=== PATIENT | female | born 1945 | race Caucasian/White ===

== ENCOUNTER 2020-08-25 08:49 | Observation (INO) | payer MEDICARE, SELFPAY ==
[2020-08-25] VITALS (14 sets, daily range): BP systolic 133–172; BP diastolic 66–99; PULSE 64–104; RESP 15–18; TEMP 36.5–36.9; O2SAT 94–98; BMI 25.7; BMI 23.5
--- NOTE | 2020-08-25 08:53 | HMH.EDGENADL ---
ED Disposition Clinical Impression: Syncope and collapse UTI (urinary tract infection) Qualifiers: Urinary tract infection type: acute cystitis Hematuria presence: without hematuria Qualified Code(s): N30.00 - Acute cystitis without hematuria Disposition: Admitted as Observation Condition on Discharge: Good Referrals: Court Taylor [Primary Care Provider] - - Critical Care Critical Care Time: No Attestation: On , the high probability of a clinically significant, sudden or life threatening deterioration of the following system(s) required my full and direct attention, intervention and personal management. The time I documented below is in addition to time spent performing reported procedures but includes the following listed in this critical care notation. Medical Decision Making - Timothy Inquiry Pt receiving controlled substance: No Vital Signs: 08/25/20 08:52 08/25/20 09:06 08/25/20 09:43 Temperature 98 F Temperature Source Oral Pulse Rate [Orthostatic Lying Right Brachial] 91 H Pulse Rate [Orthostatic Sitting Right Brachial] 99 H Pulse Rate [Orthostatic Standing Right Brachial] 104 H Pulse Rate [Right] 97 H 98 H 92 H Respiratory Rate 16 Blood Pressure [Orthostatic Lying Right Arm] 160/92 H Blood Pressure [Orthostatic Sitting Right Arm] 147/95 H Blood Pressure [Orthostatic Standing Right Arm] 146/87 H Blood Pressure [Right Arm] 164/94 H 153/87 H 157/87 H Blood Pressure Mean [Right Arm] 117 109 110 Blood Pressure Source [Right Arm] Automatic Cuff Automatic Cuff Automatic Cuff Blood Pressure Position [Right Arm] Sitting Sitting Sitting 02 Sat by Pulse Oximetry 98 95 95 Oxygen Delivery Method Room Air Room Air Room Air 08/25/20 10:00 08/25/20 10:10 08/25/20 10:30 Temperature Temperature Source Pulse Rate [Orthostatic Lying Right Brachial] 91 H Pulse Rate [Orthostatic Sitting Right Brachial] 90 Pulse Rate [Orthostatic Standing Right Brachial] 100 H Pulse Rate [Right] 90 90 Respiratory Rate 15 Blood Pressure [Orthostatic Lying Right Arm] 160/92 H Blood Pressure [Orthostatic Sitting Right Arm] 147/95 H Blood Pressure [Orthostatic Standing Right Arm] 146/87 H Blood Pressure [Right Arm] 172/87 H 162/99 H Blood Pressure Mean [Right Arm] 115 120 Blood Pressure Source [Right Arm] Automatic Cuff Automatic Cuff Blood Pressure Position [Right Arm] Sitting Sitting 02 Sat by Pulse Oximetry 96 95 Oxygen Delivery Method Room Air Room Air 08/25/20 11:03 08/25/20 11:32 Temperature Temperature Source Pulse Rate [Orthostatic Lying Right Brachial] Pulse Rate [Orthostatic Sitting Right Brachial] Pulse Rate [Orthostatic Standing Right Brachial] Pulse Rate [Right] 87 64 Respiratory Rate Blood Pressure [Orthostatic Lying Right Arm] Blood Pressure [Orthostatic Sitting Right Arm] Blood Pressure [Orthostatic Standing Right Arm] Blood Pressure [Right Arm] 142/76 H 146/83 H Blood Pressure Mean [Right Arm] 98 104 Blood Pressure Source [Right Arm] Automatic Cuff Automatic Cuff Blood Pressure Position [Right Arm] Sitting Sitting 02 Sat by Pulse Oximetry 94 L 94 L Oxygen Delivery Method Room Air Room Air - Lab Data Lab results reviewed: Yes: I reviewed the patient's lab results. Lab Results 08/25/20 08:55: WBC 6.9, RBC 5.41 H, Hgb 14.7, Hct 51.4 H, MCV 94.9, MCH 27.1, MCHC 28.5 L, RDW 16.2, Plt Count 361, MPV 12.8 H, Neut % (Auto) 66.4, Lymph % (Auto) 18.2, [place] % (Auto) 5.7, Eos % (Auto) 9.7, Baso % (Auto) 2.8 H, Neut # (Auto) 4.6, Lymph # (Auto) 1.3, [place] # (Auto) 0.4, Eos # (Auto) 0.7 H, Baso # (Auto) 0.2 08/25/20 08:55: Sodium 140, Potassium 3.8, Chloride 104, Carbon Dioxide 31 H, Anion Gap 8.8, BUN 16, Creatinine 1.00, Estimated Creat Clear 51, Estimated GFR 54 L, Est GFR ( Amer) 65, Glucose 117 H, Calcium 9.5, Total Bilirubin 0.5, AST 20, ALT 18, Alkaline Phosphatase 99, Troponin I 0.02, Total Protein 7.2, Albumin 3.9, Globulin 3.3 H, Albumin/Globulin R
--- NOTE | 2020-08-25 08:55 | PC.NURSE ---
Fsbs 118 upon arrival.
--- NOTE | 2020-08-25 08:57 | XR_ITS ---
PROCEDURE: XR CHEST PORTABLE CLINICAL HISTORY: possible syncopal episode COMPARISON: No exams were available for comparison FINDINGS: The cardiomediastinal silhouette and pulmonary vascularity are within normal limits. The lungs are clear without infiltrates, suspicious nodules, or pleural effusions. No acute bony abnormalities. IMPRESSION: No acute findings. Dictated by: Maurice Turner MD 08/25/2020 10:13 Maurice Turner MD in [place] 08/25/2020 10:13
--- NOTE | 2020-08-25 08:57 | CT_ITS ---
PROCEDURE: CT HEAD/BRAIN WO CON CLINICAL INDICATION: possible syncopal episode COMPARISON: No exams were available for comparison TECHNIQUE: Axial images obtained. All CT scans at the facility use one or more dose reduction, viz: automated exposure control, ma/kV adjustment per patient size (including targeted exams where dose is matched to indication, i.e. head), or iterative reconstruction technique. FINDINGS: No midline shift, mass effect, intracranial hemorrhage, hydrocephalus, or extra-axial fluid collection is evident. There is generalized atrophy with hypoattenuation of the periventricular white matter consistent with microangiopathic changes. The calvarium has an unremarkable appearance. No mastoid effusion. No sinus air-fluid level. IMPRESSION: No acute intracranial finding Dictated by: Maurice Turner MD 08/25/2020 10:11 Maurice Turner MD in [facility] 08/25/2020 10:11
--- NOTE | 2020-08-25 09:04 | ECG_ITS ---
APPROVED REPORT Exam: Resting ECG HR:95 bpm ECG Measurements Heart Rate 95 AXES TN 162 P 39 QRSd 74 QRS 6 QT 346 T -14 QTc 434 Conclusion Normal sinus rhythm Normal ECG Electronically signed by : Prabhu Riggins, 08/26/2020 08:04:33
[2020-08-25 09:06] LABS: Basophils # 0.2 K/mm3 (0-0.2); Basophils % 2.8 % (0.1-2.0); Eosinophils # 0.7 K/mm3 (0.0-0.4); Eosinophils % 9.7 % (0.1-12.0); Hematocrit 51.4 % (37.0-47.0); Hemoglobin 14.7 g/dL (12.2-16.2); Lymphocytes # 1.3 K/mm3 (0.7-4.5); Lymphocytes % 18.2 % (10-50); Mean Corpuscular HGB Conc 28.5 g/dL (31.8-35.4); Mean Corpuscular Hemoglobin 27.1 pg (27.0-31.2); Mean Corpuscular Volume 94.9 fl (81-99); Mean Platelet Volume 12.8 fl (7.4-10.4); Monocytes # 0.4 K/mm3 (0.1-1.0); Monocytes % 5.7 % (1.7-9.3); Neutrophils # 4.6 K/mm3 (1.8-7.8); Neutrophils % 66.4 % (37.0-80.0); Platelet Count 361 K/mm3 (142-424); Red Blood Count 5.41 M/mm3 (4.20-5.40); Red Cell Distribution Width 16.2 % (11.5-17.5); White Blood Count 6.9 K/mm3 (4.8-10.8)
[2020-08-25 09:12] LABS: Potassium 3.8 mmoL/L (3.5-5.1); Sodium 140 mmol/L (136-145)
[2020-08-25 09:13] LABS: Chloride 104 mmol/L (98-107)
[2020-08-25 09:15] LABS: Alanine Aminotransferase 18 U/L (12-78); Albumin Level 3.9 g/dl (3.5-5.0); Albumin/Globulin Ratio 1.2 (1.1-1.8); Alkaline Phosphatase 99 U/L (38-126); Anion Gap 8.8 mEq/L (5-15); Aspartate Amino Transferase 20 U/L (14-36); Bilirubin,Total 0.5 mg/dl (0.2-1.3); Blood Urea Nitrogen 16 mg/dl (7-17); Calcium 9.5 mg/dl (8.4-10.2); Carbon Dioxide 31 mmol/L (22.0-30.0); Creatinine Clearance Estimated 51 mL/min (50-200); Estimated Glomerular Filt Rate 54 ml/min (>60); GFR (African American) 65 ML/MIN (>60); Globulin 3.3 g/dL (1.3-3.2); Glucose 117 mg/dl (74-100); Total Protein,Serum 7.2 g/dl (6.3-8.2)
--- NOTE | 2020-08-25 09:19 | PC.NURSE ---
Patient going to radiology
--- NOTE | 2020-08-25 09:22 | INFXCTL.NOTE ---
Prior to pt going to radiology, Kayla came out and advised she saw bugs on the patient's shoes. Staff went in and found bugs on pts shoes. Collected one and sent to lab for confirmation. Pt was stripped and cleaned. Clothes placed in blue linen bag and sat outside. Notified family that was with patient that she had bedbugs on her.
[2020-08-25 09:28] LABS: Troponin I 0.02 ng/ml (0.00-0.034)
[2020-08-25 09:31] LABS: Coronavirus 19 IgG Antibody Negative (Negative); Coronavirus 19 IgM Antibody Negative (Negative)
[2020-08-25 09:37] LABS: Triiodothryronine (T3) Uptake 33 % (23.5-40.5)
[2020-08-25 09:38] LABS: Free Thyroxine Index 3.4 ug/dL (5.93-13.13); T4 (Thyroxine) 10.3 ug/dl (5.53-11.0)
--- NOTE | 2020-08-25 09:39 | PC.NURSE ---
pt returned from rad.
--- NOTE | 2020-08-25 09:45 | CA_ITS ---
APPROVED REPORT EXAM: Comprehensive 2D, Doppler, and color-flow Echocardiogram Fire Prevention Forester: Maeve Cox CRT Ht: 5 ft 4 in Wt: 150lbs BSA: 1.73 BP: 153/86 mmHg Indications: CHF,SOA,EX SMOKER,SYNCOPE ,DEMENTIA TDS-PT TENDER TO TOUCH BEST EXAM POSSIBLE 2D Dimensions LVOT 1.58 cm (M/F) 1.5-2.5 M-Mode Dimensions RVDd 2.18 cm (0.9-2.6) LA Diam 2.89 cm (1.9-4.0) LVDd 3.97 cm (3.5-5.7) Ao Diam 2.26 cm (2.0-3.7) LVDs 2.75 cm (3.5-5.7) IVSd 0.61 cm (0.6-1.1) PWd 1.04 cm (0.6-1.1) EF (Teich) 58.90% FS 30.70% EDV (Teich) 68.80 mL ESV (Teich) 28.30 mL LV Diastology E Decel Time 230.00 (160-240 msec) E/A Ratio 0.6 MED E' 4.00 (< 7 cm/sec) E'/MED E' Ratio 15.32 (>14) LAT E' 5.20 (<10 cm/sec) E/LAT E' Ratio 11.79 (>14) Mitral Valve MV E Max Srikanth. 61.00 (40-130 cm/s) MV A Velocity 103.00 (40-130 cm/s) E/A Ratio 0.59 MV Decel. Time 230.00 (160-240 ms) MV PHT 67.00 ms Pulmonary Valve PV Peak Velocity 87.00 (50-150 cm/s) Tricuspid Valve TR P. Velocity 262.00 cm/s RAP Estimate 10.00 mmHg RVSP 37.40 mmHg Left Ventricle Left atrium is mildly enlarged, left ventricle is normal size, mild concentric left ventricular hypertrophy, visually estimated ejection fraction 55 to 60% with no regional wall motion abnormality, grade 1 diastolic dysfunction seen without tissue Doppler evidence of raise left atrial pressure. Right Ventricle Right atrium and right ventricle are normal size and contractility. Aortic Valve Aortic valve is minimally thickened and fibrosed, there is no aortic stenosis or aortic insufficiency. Mitral Valve Mitral valve leaflets are minimally thickened, there is no mitral stenosis, there is mild mitral regurgitation. Tricuspid Valve Tricuspid valve is grossly normal, there is mild tricuspid regurgitation, tricuspid regurgitation jet velocity is inadequate for calculation of the right ventricular systolic pressure. Pulmonic Valve Pulmonic valve is poorly visualized. Great Vessels Aortic root is normal size. Pericardium Trivial pericardial effusion noted. Conclusion 1. Mildly enlarged left atrium, normal left ventricular size, mild concentric left ventricular hypertrophy, visually estimated ejection fraction 55 to 60% with no regional wall motion abnormality, grade 1 diastolic dysfunction seen without tissue Doppler evidence of raise left atrial pressure. 2. Mild mitral and tricuspid regurgitation. 3. Trivial pericardial effusion noted. Electronically signed by : Cirilo Prieto, 08/25/2020 16:37:48
[2020-08-25 09:51] LABS: Thyroid Stimulating Hormone 4.62 uIU/mL (0.465-4.68)
--- NOTE | 2020-08-25 10:00 | PC.NURSE ---
Ultrasound at bedside
[2020-08-25 10:32] LABS: Microscopic, Urine URINE MICROSCOPIC (MICROSCOPIC)
[2020-08-25 10:37] LABS: Appearance,Urine SL CLOUDY (Clear); Bilirubin,Urine Negative (Negative); Blood, Urine Negative (Negative); Color,Urine YELLOW (Yellow); Glucose,Urine (UA) Negative (Negative); Ketones,Urine Negative (Negative); Leukocyte Esterase,Urine 1+ (Negative); Nitrate,Urine Negative (Negative); Protein,Urine Negative (Negative)
[2020-08-25 10:48] LABS: Bacteria,Urine 1+ /lpf
--- NOTE | 2020-08-25 11:40 | PC.NURSE ---
Calling Dr. Mcneal at this time. He is on for service pt's at this time.
--- NOTE | 2020-08-25 11:47 | PC.NURSE ---
Dr Boss speaking with Dr escobar.
--- NOTE | 2020-08-25 11:48 | PC.NURSE ---
just spoke with Dr Mcneal he has agreed to admit to , care management called
--- NOTE | 2020-08-25 12:07 | PC.NURSE ---
Called 2nd advised the room was bring cleaned at this time
--- NOTE | 2020-08-25 12:10 | P.CONPHA_ITS ---
[facility] Pharmacy VTE Monitoring - Patient Demographics Admission date: 08/25/20 Report Date: 08/25/20 Time: 12:10 Allergies/Adverse Reactions: Patient Allergies No Known Allergies Allergy (Verified 08/25/20 08:57) Height: 1.63 m Weight: 68.039 kg Patient Problems: Current Active Problems Syncope and collapse (Acute) UTI (urinary tract infection) (Acute) - VTE Risk Labs: VTE Related Lab Results Hgb 14.7 g/dL (12.2-16.2) 08/25/20 08:55 Hct 51.4 % (37.0-47.0) H 08/25/20 08:55 Plt Count 361 K/mm3 (142-424) 08/25/20 08:55 BUN 16 mg/dl (7-17) 08/25/20 08:55 Creatinine 1.00 mg/dl (0.52-1.04) 08/25/20 08:55 Estimated Creat Clear 51 mL/min (50-200) 08/25/20 08:55 - Prophylaxis VTE Prophylaxis Ordered?: Yes Types of VTE Prophylaxis: TEDS Knee High Location of Applied Device: Bilateral Lower Extremeties
--- NOTE | 2020-08-25 12:13 | PC.NURSE ---
Helped pt to restroom at this time.
--- NOTE | 2020-08-25 12:48 | HMH.HP ---
*Admission Date: 08/25/20 <Jenise Zepeda - 08/25/20 12:56> *Chief complaint: syncope <Jenise Zepeda - 08/25/20 12:56> *History of present illness: Ms. Rivera is a 75yo female who was brought in by ambulance from her home because she became dizzy and blacked out . Her family found her on the floor. She says the dizzy spells have been going on for 6 months. She denies any pain other than in her right knee, which is an ongoing issue. She states she has been weak and had some dysuria for the past week. She denies any chest pain, SOA, cough, or fever. She takes no medications and is relatively healthy. She lives at home with family. Her family does believe she has some dementia. Workup in the ER revealed a possible UTI. Her family did not feel comfortable taking her home, therefore she will be admitted for monitoring overnight. <Jenise Zepeda - 08/25/20 16:39> [facility] History I have reviewed the patient's past medical history: Yes <Jenise Zepeda - 08/25/20 12:56> Medical History: Reports:: Dementia Denies:: Chronic Obstructive Pulmonary Disease (COPD), Diabetes Mellitus Type 2, Hyperlipidemia, Hypertension <Jenise Zepeda - 08/25/20 12:56> *Have you ever received a pneumonia vaccine?: No <Jenise Zepeda 08/25/20 12:56> *Have you received a flu vaccine this season?: No <Jenise Zepeda 08/25/20 12:56> Other Medical History: Reports: Other (legally blind) <Scottie Mcneal - 08/25/20 18:36> Other Surgeries: Yes: No Previous Surgery <Jenise Zepeda 08/25/20 16:39> - *Social History Smoking Status: Never smoker <Jenise Zepeda 08/25/20 16:39> Alcohol Intake: never <Jenise Zepeda 08/25/20 16:39> *Occupational Status:: retired <Jenise Zepeda - 08/25/20 16:39> *Travel in the last 8 weeks: None <Jenise Zepeda 08/25/20 16:39> Family Hx:: Coronary Artery Disease, Heart Attack, Stroke <Jenise Zepeda 08/25/20 16:39> Review of Systems - Constitutional Reports weakness, Denies fever(s) <Jenise Zepeda 08/25/20 16:39> - Eyes Denies blurry vision, Denies double vision <Jenise Zepeda 08/25/20 16:39> - ENT Denies nasal congestion, Denies sore throat <Jenise Zepeda 08/25/20 16:39> - *Cardiovascular Denies chest pain, Denies shortness of breath <Jenise Zepeda 08/25/20 16:39> - *Respiratory Denies cough, Denies shortness of breath <Jenise Zepeda 08/25/20 16:39> - *Gastrointestinal Denies abdominal pain, Denies loose stools, Denies nausea, Denies vomiting <Jenise Zepeda 08/25/20 16:39> - *Genitourinary Reports painful urination, Denies difficulty urinating <Jenise Zepeda 08/25/20 16:39> - *Musculoskeletal Denies joint pain <Jenise Zepeda 08/25/20 16:39> - *Neurologic Reports headache(s), Reports dizziness, Reports weakness, Denies numbness <Jenise Zepeda 08/25/20 16:39> Meds Home Medications Medication Instructions Recorded Confirmed Type No Known Home Medications 08/25/20 08/25/20 History <Scottie Mcneal - 08/25/20 18:36> Allergies Allergy/AdvReac Type Severity Reaction Status Date / Time No Known Allergies Allergy Verified 08/25/20 08:57 <Scottie Mcneal - 08/25/20 18:36> Exam Vital signs and Labs for Last 24 Hours: Temp Pulse Resp BP Pulse Ox 98.1 F 70 18 133/73 97 08/25/20 16:00 08/25/20 18:09 08/25/20 16:00 08/25/20 16:00 08/25/20 16:00 Laboratory Results - last 24 hr 08/25/20 08:55: WBC 6.9, RBC 5.41 H, Hgb 14.7, Hct 51.4 H, MCV 94.9, MCH 27.1, MCHC 28.5 L, RDW 16.2, Plt Count 361, MPV 12.8 H, Neut % (Auto) 66.4, Lymph % (Auto) 18.2, [place] % (Auto) 5.7, Eos % (Auto) 9.7, Baso % (Auto) 2.8 H, Neut # (Auto) 4.6, Lymph # (Auto) 1.3, [place] # (Auto) 0.4, Eos # (Auto) 0.7 H, Baso # (Auto) 0.2 08/25/20 08:55: Sodium 140, Potassium 3.8, Chloride 104, Carbon Dioxide 31 H, Anion Gap 8.8, BUN 16, Creatinine 1.00, Estimated Creat Clear 51, Estimated GFR 54 L, Est GFR ( Amer) 65, Glucose 117 H, Calcium 9.5, Total
--- NOTE | 2020-08-25 14:54 | SW/DCPLANNER ---
Addendum entered by Dominga Zapata 08/26/20 10:10: This patient will discharge home today. Due to patients condition (lice, bedbugs) and being blind/dementia this case has been reported to [facility] with ID# [id number]. Original Note: I have spoke with patients daughter regarding discharge plans once patient is medically stable for discharge. Daughter stated that patient lives at home with family and that patient will return home with family once she is ready. Daughter stated that patient has no needs at this time. Discharge date is unknown at this time.
[2020-08-25 15:57] LABS: Troponin I < 0.01 ng/ml (0.00-0.034)
--- NOTE | 2020-08-25 18:19 | PC.NURSE ---
Patient is currently resting in her bed. Brought in from er today with syncope from home. Neurologically patient is oriented only to self and date of . Unsure of where she is or why. Patients daughter stated that she is legally blind and unable to see far distances. Patient states that she can only see a few inches in front of her. Patient is able to ascertain the number of fingers being held up in front of her. Patient has regular diet and has eaten some of her meals, roughly 25%. No n/v/d. Patient has had several soiled chux pads related to attempted bowel movements. Patient voids per commode. Ambulates with assist x 2. Patient was given a shower today upon being admitted to room as it was noted upon transferring patient upstairs that she had headlice. Treated with nix. Patient had a section of hair that was heavily matted, which has since been washed and combed. Patient is comfortable with no complaints of any discomfort. No visible areas from her fall today. Daughter stated that her mother was on the floor for at least 30 minutes before they told her that her mother had fallen. Will continue to monitor.
[2020-08-25 19:57] LABS: Troponin I < 0.01 ng/ml (0.00-0.034)
[2020-08-26] VITALS: BP 142/84; PULSE 80; RESP 16; TEMP 36.4; O2SAT 98
--- NOTE | 2020-08-26 03:59 | INFXCTL.NOTE ---
A&O TO NAME AND BIRTHDAY ONLY. PT HAS TOLERATED RA WELL THROUGHOUT SHIFT. RESPIRATIONS REGULAR AND UNLABORED. LUNG SOUNDS BILATERALY CLEAR. NO COUGH NOTED. HAND DEBUG TECHNICIAN EQUAL. +2 PULSES NOTED THROUGHOUT. ACTIVE BOWEL SOUNDS HEARD IN ALL 4 QUADRANTS. SOFT AND NONTENDER ABDOMEN. NO BM THUS FAR. PT VOIDS PER TOILET WITH 1 PERSON ASSIST. NO REPORTS OF PAIN. NS INFUSING AT 50ML/HR. PT IS IN CONTACT PRECAUTIONS DUE TO HEAD LICE AND BED BUGS NOTED BY STAFF. BED ALARM ON TO PROMOTE SAFETY. PT HAS SLEPT MOST OF SHIFT. PT IS CURRENTLY ASLEEP WITH CALL LIGHT WITHIN REACH. BED IN LOWEST POSITION. VSS. WILL CONTINUE TO MONITOR.
[2020-08-26 04:00] VITALS: BP 138/90; PULSE 70; PULSE 74; RESP 16; TEMP 36.6; O2SAT 98
[2020-08-26 05:00] VITALS: BMI 25.3
--- NOTE | 2020-08-26 06:35 | PC.NURSE ---
A&O TO NAME AND BIRTHDAY ONLY. PT HAS TOLERATED ROOM AIR WELL THROUGHOUT SHIFT. RESPIRATIONS REGULAR AND UNLABORED. LUNG SOUNDS BILATERALLY CLEAR. NO COUGH NOTED. ACTIVE BOWEL SOUNDS HEARD IN ALL 4 QUADRANTS. SOFT AND NONTENDER ABDOMEN. NO BM THUS FAR. PT VOIDS PER TOILET WITH 1 PERSON ASSIST. NO EDEMA NOTED. +2 PULSES NOTED THROUGHOUT. PT HAS RESTED MOST OF SHIFT. HAND COIL INSPECTOR EQUAL. NO REPORTS OF PAIN. BED ALARM ON TO PROMOTE SAFETY. PT'S IV IN LAC CAME OUT. KOBAN AND 4X4S APPLIED. STILL HAS IV IN R WRIST. NS INFUSING AT 50ML/HR. PT IS CURRENTLY SITTING IN BED WITH CALL LIGHT WITHIN REACH. BED IN LOWEST POSITION. VSS. WILL CONTINUE TO MONITOR.
[2020-08-26 08:00] VITALS: BP 147/79; PULSE 78; RESP 20; TEMP 36.4; O2SAT 97
--- NOTE | 2020-08-26 08:45 | HMH.ACPN2 ---
<Jenise Zepeda - Last Filed: 08/26/20 08:45> Internal Medicine - PN: Subj *Date: 08/26/20 *Time: 08:45 Interval history: Patient states she is feeling better today. She is much more awake and alert. She states she slept great last night and denies any pain today. She was able to eat some breakfast. Her weakness has improved. Exam Vital signs and Labs for Last 24 Hours: Temp Pulse Resp BP Pulse Ox 97.9 F 74 16 138/90 98 08/26/20 04:00 08/26/20 04:00 08/26/20 04:00 08/26/20 04:00 08/26/20 04:00 Laboratory Results - last 24 hr 08/25/20 08:55: WBC 6.9, RBC 5.41 H, Hgb 14.7, Hct 51.4 H, MCV 94.9, MCH 27.1, MCHC 28.5 L, RDW 16.2, Plt Count 361, MPV 12.8 H, Neut % (Auto) 66.4, Lymph % (Auto) 18.2, [place] % (Auto) 5.7, Eos % (Auto) 9.7, Baso % (Auto) 2.8 H, Neut # (Auto) 4.6, Lymph # (Auto) 1.3, [place] # (Auto) 0.4, Eos # (Auto) 0.7 H, Baso # (Auto) 0.2 08/25/20 08:55: Sodium 140, Potassium 3.8, Chloride 104, Carbon Dioxide 31 H, Anion Gap 8.8, BUN 16, Creatinine 1.00, Estimated Creat Clear 51, Estimated GFR 54 L, Est GFR ( Amer) 65, Glucose 117 H, Calcium 9.5, Total Bilirubin 0.5, AST 20, ALT 18, Alkaline Phosphatase 99, Troponin I 0.02, Total Protein 7.2, Albumin 3.9, Globulin 3.3 H, Albumin/Globulin Ratio 1.2 08/25/20 08:55: SARS-CoV-2 IgG Ab (Rapid) Negative, SARS-CoV-2 IgM Ab (Rapid) Negative 08/25/20 08:55: TSH 4.62, Free T4 Index 3.4 L, Thyroxine (T4) 10.3, T3 Uptake 33 08/25/20 09:58: Urine Color Yellow, Urine Appearance Sl cloudy, Urine pH 7.0, Ur Specific [place] 1.010, Urine Protein Negative, Urine Glucose (UA) Negative, Urine Ketones Negative, Urine Blood Negative, Urine Nitrate Negative, Urine Bilirubin Negative, Urine Urobilinogen 1.0, Ur Leukocyte Esterase 1+ A, Urine WBC 10-20, Ur Squamous Epith Cells 3-5, Urine Bacteria 1+ 08/25/20 15:02: Troponin I < 0.01 08/25/20 19:03: Troponin I < 0.01 I & O for Last 24 hours: Intake & Output 08/23/20 08/24/20 08/25/20 08/26/20 11:59 11:59 11:59 11:59 Intake Total 1737 / 1737 Balance 1737 / 1737 Weight 150 lb 129 lb 3.2 oz - Constitutional no acute distress - *Routine Respiratory Exam Present: CTA bilaterally - *Routine Cardiovascular Exam Present: RRR - *Routine Abdominal Exam Present: soft, normoactive bowel sounds. Absent: tenderness - *Routine Extremities Exam Absent: cyanosis, clubbing, edema - *Routine Skin Exam Present: warm. Absent: rash - *Routine Neurological Exam Present: alert, oriented X3 Assessment and Plan (1) Syncope and collapse Status: Acute Category: Medical Code(s): R55 - Syncope and collapse (2) UTI (urinary tract infection) Status: Acute Qualifiers: Urinary tract infection type: acute cystitis Hematuria presence: without hematuria Qualified Code(s): N30.00 - Acute cystitis without hematuria Category: Medical Code(s): N39.0 - Urinary tract infection, site not specified (3) Infestation by bed bug Status: Acute Category: Medical Code(s): B88.8 - Other specified infestations (4) Lice Status: Acute Category: Medical Code(s): B85.2 - Pediculosis, unspecified (5) Legally blind Status: Acute Category: Medical Code(s): H54.8 - Legal blindness, as defined in [place] - Assessment and plan all Dx Assessment and Plan for all problems:: Patient will be discharged on Cipro for her UTI meclizine for dizziness. She will need to f/u with her PCP. She will follow-up with Dr. Morales for her dizziness and dementia. <Scottie Mcneal - Last Filed: 08/26/20 15:10> Internal Medicine - PN: Subj *Date: 08/26/20 *Time: 15:08 Exam Vital signs and Labs for Last 24 Hours: Temp Pulse Resp BP Pulse Ox 97.5 F L 78 20 147/79 H 97 08/26/20 08:00 08/26/20 08:00 08/26/20 08:00 08/26/20 08:00 08/26/20 08:00 Laboratory Results - last 24 hr 08/25/20 15:02: Troponin I < 0.01 08/25/20 19:03: Troponin I < 0.01 I & O for Last 24 hours: Intake &
--- NOTE | 2020-08-26 10:36 | PC.NURSE ---
Addendum entered by Dani Curtis RN 08/26/20 10:37: Jenise Original Note: Called d/c instructions to pts daughter Purvi Adams.
--- NOTE | 2020-08-26 12:42 | [facility].DCSUM ---
General - General Admission date:: 08/25/20 <Scottie Mcneal - 08/26/20 15:11> 08/25/20 <Jenise Zepeda - 08/26/20 12:45> Discharge date: 08/26/20 <Jenise Zepeda - 08/26/20 12:45> HPI HPI: Ms. Rivera is a 75yo female who was brought in by ambulance from her home because she became dizzy and blacked out . Her family found her on the floor. She says the dizzy spells have been going on for 6 months. She denies any pain other than in her right knee, which is an ongoing issue. She states she has been weak and had some dysuria for the past week. She denies any chest pain, SOA, cough, or fever. She takes no medications and is relatively healthy. She lives at home with family. Her family does believe she has some dementia. Workup in the ER revealed a possible UTI. Her family did not feel comfortable taking her home, therefore she will be admitted for monitoring overnight. <Jenise Zepeda - 08/26/20 12:45> Hospital Course Hospital Course: The patient was admitted and started on IV antibiotics as well as some IV fluids. She was also placed on a vehicle monitor technician and serial troponins were ordered due to her syncope. An echo was also ordered. Her head CT and chest x-ray showed nothing acute. Her echo showed an EF of 55 to 60% with grade 1 diastolic dysfunction. Cardiac monitoring showed nothing acute. By 08/26/2020, the patient was more awake and alert. She had been able to sleep and did begin eating. Her weakness improved slightly as did her dizziness. Her urine culture is still pending but she was stable to be discharged home on Cipro for her UTI and meclizine for her dizziness. She will need to follow-up with both her PCP as well as with Dr. Morales for her dizziness and possible dementia. <Jenise Zepeda - 08/26/20 12:45> Objective Vital signs: Temp Pulse Resp BP Pulse Ox 97.5 F L 78 20 147/79 H 97 08/26/20 08:00 08/26/20 08:00 08/26/20 08:00 08/26/20 08:00 08/26/20 08:00 <Scottie Mcneal - 08/26/20 15:11> Temp Pulse Resp BP Pulse Ox 97.5 F L 78 20 147/79 H 97 08/26/20 08:00 08/26/20 08:00 08/26/20 08:00 08/26/20 08:00 08/26/20 08:00 <Jenise Zepeda - 08/26/20 12:45> Narrative: - Constitutional no acute distress Comments: patient is lethargic, she is able to answer questions but falls asleep while answering - *Routine HEENT Exam Head: Present: normocephalic Eye: Present: EOMI, PERRL ENT: Present: mucous membranes dry - *Routine Respiratory Exam Present: CTA bilaterally - *Routine Cardiovascular Exam Present: RRR - *Routine Abdominal Exam Present: soft, normoactive bowel sounds. Absent: tenderness - *Routine Extremities Exam Absent: cyanosis, clubbing, edema - *Routine Skin Exam Present: warm. Absent: rash - *Routine Neurological Exam Present: altered mental status <Jenise Zepeda - 08/26/20 12:45> Results Labs on day of discharge: Labs from last 24 hours 08/25/20 08/25/20 19:03 15:02 Troponin I < 0.01 < 0.01 Preliminary micro results at discharge 08/25/20 09:58 Urine Culture - Preliminary Urine,Clean Catch <Scottie Mcneal - 08/26/20 15:11> Labs from last 24 hours 08/25/20 08/25/20 19:03 15:02 Troponin I < 0.01 < 0.01 Preliminary micro results at discharge 08/25/20 09:58 Urine Culture - Preliminary Urine,Clean Catch <DuaneJenise - 08/26/20 12:45> DS: Diagnosis - Discharge Diagnosis (1) Syncope and collapse Status: Acute (2) UTI (urinary tract infection) Status: Acute (3) Infestation by bed bug Status: Acute (4) Lice Status: Acute (5) Legally blind Status: Acute <Jenise Zepeda - 08/26/20 12:42> (1) Syncope and collapse Status: Acute (2) UTI (urinary tract infection) Status: Acute (3) Infestation by bed bug Status: Acute (4) Lice Status: Acute (5) Legally bl
[2020-10-17 08:31] LABS: POC Glucose,Bedside 118 (70-110)
== END 2020-08-26 12:30 | disposition home or self-care (01) ==
LOC: ER 11:50 → 2ND 12:01
PROVIDERS: Admitting Provider Family Medicine; Emergency Provider Emergency Medicine; PCP Family Medicine; Visit Provider Family Medicine
DX: R55 Syncope and collapse (principal); N39.0 Urinary tract infection, site not specified; B85.2 Pediculosis, unspecified; H54.8 Legal blindness, as defined in USA; E03.9 Hypothyroidism, unspecified; T14.8XXA Other injury of unspecified body region, initial encounter; W57.XXXA Bitten or stung by nonvenomous insect and other nonvenomous arthropods, initial encounter
CPT/HCPCS: 36415; 70450; 71045; 80053; 81001; 82962; 84436; 84443; 84479; 84484; 85025; 86328; 87086; 93005; 93306; 96374; 99284; G0378

== ENCOUNTER 2020-10-19 18:28 | Inpatient (IN) | payer MEDICARE, SELFPAY ==
[2020-10-19] VITALS (11 sets, daily range): BP systolic 142–171; BP diastolic 71–88; PULSE 64–88; RESP 15–17; TEMP 36.7; O2SAT 95–98; BMI 28.3
--- NOTE | 2020-10-19 18:54 | CT_ITS ---
PROCEDURE: CT THORACIC SPINE WO CON CLINICAL HISTORY: fall Fall with injury and pain, back pain following injury COMPARISON: No exams were available for comparison TECHNIQUE: Axial images obtained with sagittal and coronal reformats. All CT scans at the facility use one or more dose reduction, viz: automated exposure control, ma/kV adjustment per patient size (including targeted exams where dose is matched to indication, i.e. head), or iterative reconstruction technique. FINDINGS: There is normal alignment. There is diffuse osteopenia there is approximately 25 percent anterior wedge compression of T7 and approximately 30 percent anterior wedge compression of T12. There is minimal concave deformity involving T5 superiorly age indeterminate. These compression changes are age indeterminate and may be better evaluated with MRI. No retropulsion apparent. Multilevel degenerative disc disease is present. There is a noncalcified nodular opacity in the left upper lobe posteriorly which measures 7 mm. Small hiatal hernia noted. There is diffuse coronary artery calcification. IMPRESSION: 1. Anterior wedge compression changes of T7 and T12 with small concave deformity of T5 superiorly with diffuse osteopenia. These findings are age indeterminate and may be better evaluated with MRI if clinically desired. No retropulsion. 2. Multilevel degenerative changes. 3. Indeterminate 7 mm left upper lobe nodule Dictated by: Maurice Turner MD 10/20/2020 06:47 Maurice Turner MD in [facility] 10/20/2020 06:47
--- NOTE | 2020-10-19 18:54 | XR_ITS ---
PROCEDURE: XR CHEST PORTABLE CLINICAL HISTORY: fall Posttraumatic pain COMPARISON: CR XR CHEST PORTABLE from 08/25/2020 FINDINGS: The cardiomediastinal silhouette and pulmonary vascularity are within normal limits. The lungs are clear without infiltrates, suspicious nodules, or pleural effusions. Subchondral cystic area noted in the greater tuberosity region of the right humerus. IMPRESSION: No acute findings. Dictated by: Maurice Turner MD 10/20/2020 05:24 Maurice Turner MD in [facility] 10/20/2020 05:24
--- NOTE | 2020-10-19 18:54 | CT_ITS ---
PROCEDURE: CT HEAD/BRAIN WO CON CLINICAL INDICATION: fall Head injury with headache/pain, contusion, abrasion or hematoma COMPARISON: CT CT HEAD/BRAIN WO CON from 08/25/2020 TECHNIQUE: Axial images obtained. All CT scans at the facility use one or more dose reduction, viz: automated exposure control, ma/kV adjustment per patient size (including targeted exams where dose is matched to indication, i.e. head), or iterative reconstruction technique. FINDINGS: No midline shift, mass effect, intracranial hemorrhage, hydrocephalus, or extra-axial fluid collection is evident. There is generalized atrophy with hypoattenuation of the periventricular white matter consistent with microangiopathic changes.. There is prominence of the lateral ventricles which is felt to be due to ex vacuo dilatation from brain volume loss. Not significantly changed the calvarium has an unremarkable appearance. No mastoid effusion. No sinus air-fluid level. IMPRESSION: No acute intracranial finding Dictated by: Maurice Turner MD 10/20/2020 06:25 Maurice Turner MD in [facility] 10/20/2020 06:25
--- NOTE | 2020-10-19 18:54 | XR_ITS ---
PROCEDURE: XR PELVIS 1-2V CLINICAL INDICATION: fall Posttraumatic pain COMPARISON: CT CT HIP RT WO CON from 10/19/2020 TECHNIQUE: XR Pelvis AP View FINDINGS: Severe osteoarthritic changes are present involving the right hip with subchondral cystic changes and partial collapse of the right femoral head. There is mild lateral subluxation of the femoral head with buttressing osteophyte of the lateral acetabulum. There may be a fracture at the base of the lateral acetabular osteophyte. No obvious femoral neck fracture. Mild osteoarthritic changes are present involving the left hip. IMPRESSION: Severe osteoarthritis of the right hip with subcortical cystic changes and collapse of the femoral head with possible fracture at the base of a lateral osteophyte of the right acetabulum Dictated by: Maurice Turner MD 10/20/2020 05:23 Maurice Turner MD in [facility] 10/20/2020 05:23
--- NOTE | 2020-10-19 18:54 | CT_ITS ---
PROCEDURE: CT CERVICAL SPINE WO CON CLINICAL INDICATION: fall Neck injury with pain, contusion/abrasion or hematoma, cervical sprain/strain the COMPARISON: No exams were available for comparison TECHNIQUE: Axial images obtained with sagittal and coronal reformats. All CT scans at the facility use one or more dose reduction, viz: automated exposure control, ma/kV adjustment per patient size (including targeted exams where dose is matched to indication, i.e. head), or iterative reconstruction technique. Axial spiral CT scanning performed of the cervical spine beginning at the base of the skull and continuing to the upper T-spine. 3-D multiplanar reconstruction with 3-D manipulation of volumetric data set in image rendering was completed by the radiologist and/or technologist with the supervision of the radiologist on independent workstation. FINDINGS: No fracture or dislocation. Generalized osteopenia. Multilevel cervical spondylosis with spurring and facet and uncovertebral hypertrophy C2-C3: Unremarkable. C3-C4: Degenerative disc disease with bilateral foraminal narrowing. C4-C5: Degenerate disc disease with right-sided foraminal narrowing. There is fusion of the facet joint on the right. C5-C6:: Degenerative disc disease with endplate hypertrophic change. 3 mm retrolisthesis of C5. Canal stenosis and bilateral foraminal narrowing. Stippled air density within the C6 vertebral body superiorly and may be from the disc space and degenerative change. C6-C7: Unremarkable. C7-T1: Unremarkable. Lung apices are clear IMPRESSION: 1. No acute fracture 2. Degenerative changes as detailed above Dictated by: Maurice Turner MD 10/20/2020 06:29 Maurice Turner MD in [facility] 10/20/2020 06:29
[2020-10-19 19:04] LABS: Basophils % 0.5 % (0.1-2.0); Eosinophils # 0.9 K/mm3 (0.0-0.4); Eosinophils % 12.7 % (0.1-12.0); Hematocrit 43.9 % (37.0-47.0); Hemoglobin 13.5 g/dL (12.2-16.2); Lymphocytes # 1.1 K/mm3 (0.7-4.5); Lymphocytes % 16.7 % (10-50); Mean Corpuscular HGB Conc 30.7 g/dL (31.8-35.4); Mean Corpuscular Hemoglobin 26.4 pg (27.0-31.2); Mean Corpuscular Volume 86.2 fl (81-99); Monocytes # 0.3 K/mm3 (0.1-1.0); Monocytes % 4.9 % (1.7-9.3); Neutrophils # 4.4 K/mm3 (1.8-7.8); Neutrophils % 65.3 % (37.0-80.0); Platelet Count 302 K/mm3 (142-424); Red Cell Distribution Width 14.4 % (11.5-17.5); White Blood Count 6.8 K/mm3 (4.8-10.8)
[2020-10-19 19:07] LABS: Chloride 106 mmol/L (98-107); Potassium 3.7 mmoL/L (3.5-5.1); Sodium 139 mmol/L (136-145)
[2020-10-19 19:09] LABS: Alanine Aminotransferase 29 U/L (12-78); Aspartate Amino Transferase 26 U/L (14-36); Blood Urea Nitrogen 17 mg/dl (7-17); Creatinine Clearance Estimated 51 mL/min (50-200); Estimated Glomerular Filt Rate 81 ml/min (>60); GFR (African American) 98 ML/MIN (>60)
[2020-10-19 19:10] LABS: Albumin Level 4.1 g/dl (3.5-5.0); Albumin/Globulin Ratio 1.2 (1.1-1.8); Alkaline Phosphatase 105 U/L (38-126); Anion Gap 7.7 mEq/L (5-15); Bilirubin,Total 0.4 mg/dl (0.2-1.3); Calcium 9.6 mg/dl (8.4-10.2); Carbon Dioxide 29 mmol/L (22.0-30.0); Globulin 3.4 g/dL (1.3-3.2); Glucose 122 mg/dl (74-100); Total Protein,Serum 7.5 g/dl (6.3-8.2)
[2020-10-19 19:28] LABS: Erythrocyte Sedimentation Rate 26 mm/hr (0-30)
--- NOTE | 2020-10-19 20:41 | CT_ITS ---
PROCEDURE: CT LUMBAR SPINE WO CON CLINICAL HISTORY: fall Low back pain following injury COMPARISON: No exams were available for comparison TECHNIQUE: Axial images obtained with sagittal and coronal reformats. All CT scans at the facility use one or more dose reduction, viz: automated exposure control, ma/kV adjustment per patient size (including targeted exams where dose is matched to indication, i.e. head), or iterative reconstruction technique. FINDINGS: There is diffuse osteopenia. There is approximately 30-40 percent anterior wedge compression changes of T12 without retropulsion. L1-L2: Central disc calcification. L2-L3: Bulging disc with facet ligamentum hypertrophy. L3-L4: Bulging disc with facet ligamentum hypertrophy with bilateral lateral recess and foraminal narrowing. 2 mm anterolisthesis of L3. L4-5: 3 mm anterolisthesis of L4 with bulging disc and facet and ligamentum hypertrophy with canal stenosis and bilateral lateral recess and foraminal narrowing. L5-S1: Facet ligamentum hypertrophy with small central disc osteophyte complex. 3 cm right ovarian cyst. Consider ultrasound for further evaluation in this postmenopausal patient. IMPRESSION: 1. 30-40 percent anterior wedge compression change of T12 without retropulsion. MRI may determine if this is acute or chronic. 2. Multilevel lumbar spondylosis with bulging disc and facet and ligamentum hypertrophy. Please see above for detailed description at each level. 3. 3 cm right ovarian cyst. Pelvic ultrasound may provide further evaluation in this postmenopausal patient Dictated by: Maurice Turner MD 10/20/2020 06:54 Maurice Turner MD in [facility] 10/20/2020 06:54
--- NOTE | 2020-10-19 20:44 | [facility].EDFALL ---
ED Disposition Clinical Impression: Lumbar back pain, Gait abnormality, Foraminal stenosis of lumbar region, Degenerative lumbar spinal stenosis, Elevated BP without diagnosis of hypertension Acetabulum fracture, right Qualifiers: Encounter type: initial encounter Sublocation of acetabulum: other portion of acetabulum Fracture type: closed Qualified Code(s): S32.491A - Other specified fracture of right acetabulum, initial encounter for closed fracture Knee pain, right Qualifiers: Chronicity: acute Qualified Code(s): M25.561 - Pain in right knee Fall Qualifiers: Encounter type: initial encounter Qualified Code(s): W19.XXXA - Unspecified fall, initial encounter Disposition: Admitted as Observation Condition on Discharge: Good Referrals: Court Taylor [Primary Care Provider] - - Critical Care Critical Care Time: No Attestation: On 10/19/20, the high probability of a clinically significant, sudden or life threatening deterioration of the following system(s) required my full and direct attention, intervention and personal management. The time I documented below is in addition to time spent performing reported procedures but includes the following listed in this critical care notation. Medical Decision Making - Medical Records Medical records reviewed: Yes: I reviewed the patient's medical records. - Timothy Inquiry Pt receiving controlled substance: No Vital Signs: 10/19/20 18:38 10/19/20 19:00 10/19/20 19:30 Temperature 98.1 F Temperature Source Oral Pulse Rate [Left] 88 78 68 Respiratory Rate 16 17 17 Blood Pressure [Right Arm] 171/88 H 164/84 H 171/80 H Blood Pressure Mean [Right Arm] 115 110 110 Blood Pressure Source [Right Arm] Manual Cuff/ Doppler Automatic Cuff Automatic Cuff Blood Pressure Position [Right Arm] Sitting Supine Supine 02 Sat by Pulse Oximetry 97 98 98 Oxygen Delivery Method Room Air Room Air Room Air 10/19/20 20:00 10/19/20 20:30 Temperature Temperature Source Pulse Rate [Left] 73 78 Respiratory Rate 17 17 Blood Pressure [Right Arm] 158/81 H 171/81 H Blood Pressure Mean [Right Arm] 106 111 Blood Pressure Source [Right Arm] Automatic Cuff Automatic Cuff Blood Pressure Position [Right Arm] Supine Supine 02 Sat by Pulse Oximetry 98 98 Oxygen Delivery Method Room Air Room Air - Lab Data Lab results reviewed: Yes: I reviewed the patient's lab results. Lab Results 10/19/20 18:51: WBC 6.8, RBC 5.10, Hgb 13.5, Hct 43.9, MCV 86.2, MCH 26.4 L, MCHC 30.7 L, RDW 14.4, Plt Count 302, MPV 8.0, Neut % (Auto) 65.3, Lymph % (Auto) 16.7, [place] % (Auto) 4.9, Eos % (Auto) 12.7 H, Baso % (Auto) 0.5, Neut # (Auto) 4.4, Lymph # (Auto) 1.1, [place] # (Auto) 0.3, Eos # (Auto) 0.9 H, Baso # (Auto) 0.0, ESR 26 10/19/20 18:51: Sodium 139, Potassium 3.7, Chloride 106, Carbon Dioxide 29, Anion Gap 7.7, BUN 17, Creatinine 0.70, Estimated Creat Clear 51, Estimated GFR 81, Est GFR ( Amer) 98, Glucose 122 H, Calcium 9.6, Total Bilirubin 0.4, AST 26, ALT 29, Alkaline Phosphatase 105, C-Reactive Protein 2.0, Total Protein 7.5, Albumin 4.1, Globulin 3.4 H, Albumin/Globulin Ratio 1.2 10/19/20 21:56: Stool Occult Blood Negative Result diagrams: 10/19/20 18:51 10/19/20 18:51 Orders (Tests/Meds): ED MEDICATIONS Generic Name Dose Route Start Last Admin Trade Name Freq PRN Reason Stop Dose Admin Sodium Chloride 1,000 mls @ 999 mls/hr 10/19/20 21:45 Sod Chlor 0.9% 1000ml Bag IV 10/19/20 22:45 .Q1H1M CRISSY Ketorolac Tromethamine 15 mg 10/19/20 22:31 Ketorolac 30mg/Ml Vial IV 10/19/20 22:32 ONCE ONE Methylprednisolone Sodium Succinate 125 mg 10/19/20 22:31 Methylprednisolone Sod Succ 125mg Vial IV 10/19/20 22:32 ONCE ONE ORDERS Category Date Time Status CT cervical spine wo con Stat Cat Scan 10/19/20 18:[address] head/brain wo con Stat Cat Scan 10/19/20 18:[address] hip RT wo con Stat Cat Scan 10/19/20 20:[address] lumbar spine wo con Stat Cat
--- NOTE | 2020-10-19 20:45 | CT_ITS ---
PROCEDURE: CT HIP RT WO CON CLINICAL HISTORY: fall Posttraumatic pain COMPARISON: No exams were available for comparison TECHNIQUE: Axial images obtained with sagittal and coronal reformats. All CT scans at the facility use one or more dose reduction, viz: automated exposure control, ma/kV adjustment per patient size (including targeted exams where dose is matched to indication, i.e. head), or iterative reconstruction technique. FINDINGS: Severe osteoarthritic changes are present involving the right hip with sub cortical cystic changes the and mild collapse of the femoral head superiorly. There is spurring along the lateral aspect of the acetabulum with a fracture through the base of the spur age indeterminate. There is also questionable nondisplaced fracture the inferior pubic ramus posteriorly. There is a small joint effusion. IMPRESSION: 1. Severe osteoarthritis of the right hip with subchondral cystic changes with a fracture through the base of the lateral acetabular spur. 2. Possible nondisplaced fracture of the right inferior pubic ramus Dictated by: Maurice Turner MD 10/20/2020 07:05 Maurice Turner MD in [facility] 10/20/2020 07:05
--- NOTE | 2020-10-19 20:48 | XR_ITS ---
PROCEDURE: XR KNEE RT 3V CLINICAL INDICATION: fall Posttraumatic pain COMPARISON: No exams were available for comparison FINDINGS: Mild osteoarthritic changes involve all 3 compartments. On AP view there is suggestion of minimal depression of the medial tibial plateau. This is not reproduced on oblique view. Consider weight-bearing views for further evaluation or CT if pain persists. There may be a small suprapatellar effusion. Nonspecific soft tissue calcifications. A thin curvilinear density is present also at the medial proximal tibia which could be due to mild impaction injury. Other findings:None. IMPRESSION: Possible nondisplaced medial tibial plateau fracture. Consider follow-up if symptoms persist. Dictated by: Maurice Turner MD 10/20/2020 05:19 Maurice Turner MD in [facility] 10/20/2020 05:19
[2020-10-19 22:16] LABS: Occult Blood,Stool Negative (Negative)
[2020-10-19 22:53] LABS: Coronavirus 19 IgG Antibody Negative (Negative); Coronavirus 19 IgM Antibody Negative (Negative)
[2020-10-19 23:36] LABS: Microscopic, Urine URINE MICROSCOPIC (MICROSCOPIC)
[2020-10-19 23:40] LABS: Appearance,Urine CLEAR (Clear); Bilirubin,Urine Negative (Negative); Blood, Urine TRACE-L (Negative); Color,Urine YELLOW (Yellow); Glucose,Urine (UA) Negative (Negative); Ketones,Urine TRACE (Negative); Leukocyte Esterase,Urine TRACE (Negative); Nitrate,Urine Negative (Negative); Protein,Urine Negative (Negative); Specific Gravity, Urine 1.025 (1.005-1.030); Urobilinogen,Urine 0.2 EU/dl (0.2)
[2020-10-19 23:52] LABS: Amphetamine/Metha Screen,Urine Negative ng/ml (<1000); Benzodiazepines Screen,Urine Negative ng/ml (<200)
[2020-10-19 23:53] LABS: Barbiturates Screen,Urine Negative ng/ml (<200)
[2020-10-19 23:54] LABS: Cannabinoid Screen,Urine Negative ng/ml (<50); Methadone Screen,Urine Negative ng/ml (<300)
[2020-10-19 23:55] LABS: Cocaine Screen,Urine Negative ng/ml (<300)
[2020-10-19 23:56] LABS: Opiate Screen,Urine Negative ng/ml (<300); Phencyclidine Screen,Urine Negative ng/ml (<25)
--- NOTE | 2020-10-19 23:57 | PC.NURSE ---
pt to the floor at this time
[2020-10-20 00:02] LABS: Bacteria,Urine 1+ /lpf; Mucus,Urine 1+ /lpf
[2020-10-20 00:07] VITALS: BP 175/81; PULSE 69; RESP 16; TEMP 36.5; O2SAT 95
--- NOTE | 2020-10-20 00:08 | PC.NURSE ---
PT ARRIVED TO THE FLOOR VIA STRETCHER FROM ED W/STAFF AT 0007
--- NOTE | 2020-10-20 02:27 | PC.NURSE ---
pt was decontaminated upon arrival to the floor. pt has an infestation of lice. treated with lice treatment and bathed. pt states i have no heat, i only have water because I pay for that. lives with daughter. pt states my daughter parties all the time and constantly has young visitors staying over. pt also states daughter tells her to go take a bath but has no assistance with bathing. pt was malodorous. decontamination and bathing time was two hours. nails full of black/brown substance. ears where black inside. finger nails and toe nails need trimmed. some toenails are curling under. pt sole of feet were black. excoriated to labia. numerous bug bites noted to neck, chest, and shoulders. right leg is cold to touch but pedal pulses are present and +2. castillo cath in place and draining clear yellow urine. iv patent and infusing per order. call light in reach. will continue to monitor
[2020-10-20 04:00] VITALS: BP 145/75; PULSE 62; RESP 16; TEMP 36.8; O2SAT 95
--- NOTE | 2020-10-20 06:20 | PC.NURSE ---
PATIENT NOT WEIGHED DUE TO THE FACT SHE IS IN A NON-WEIGHING BED
[2020-10-20 06:42] LABS: Basophils % 0.1 % (0.1-2.0); Eosinophils % 0.2 % (0.1-12.0); Hematocrit 42.8 % (37.0-47.0); Lymphocytes # 0.6 K/mm3 (0.7-4.5); Mean Corpuscular HGB Conc 30.3 g/dL (31.8-35.4); Mean Corpuscular Volume 85.8 fl (81-99); Mean Platelet Volume 7.6 fl (7.4-10.4); Monocytes # 0.2 K/mm3 (0.1-1.0); Monocytes % 2.7 % (1.7-9.3); Neutrophils # 5.8 K/mm3 (1.8-7.8); Platelet Count 292 K/mm3 (142-424); Red Blood Count 4.99 M/mm3 (4.20-5.40); Red Cell Distribution Width 14.4 % (11.5-17.5); White Blood Count 6.5 K/mm3 (4.8-10.8)
[2020-10-20 06:47] LABS: Chloride 108 mmol/L (98-107); MANUAL DIFFERENTIAL MANUAL DIFFERENTIAL (MANUAL DIFF); Potassium 4.2 mmoL/L (3.5-5.1); Sodium 139 mmol/L (136-145)
[2020-10-20 06:50] LABS: Anion Gap 6.2 mEq/L (5-15); Blood Urea Nitrogen 14 mg/dl (7-17); Calcium 9.4 mg/dl (8.4-10.2); Carbon Dioxide 29 mmol/L (22.0-30.0); Creatinine Clearance Estimated 51 mL/min (50-200); Estimated Glomerular Filt Rate 81 ml/min (>60); GFR (African American) 98 ML/MIN (>60); Glucose 179 mg/dl (74-100)
[2020-10-20 06:51] LABS: Magnesium 2.2 mg/dl (1.6-2.3)
--- NOTE | 2020-10-20 07:36 | [facility].PHAVTE ---
[facility] VTE Monitoring - Patient Demographics Admission date: 10/19/20 Report Date: 10/20/20 Time: 07:36 Allergies/Adverse Reactions: Patient Allergies No Known Allergies Allergy (Verified 10/19/20 18:50) Height: 1.55 m Weight: 68.039 kg Patient Problems: Current Active Problems Acetabulum fracture, right (Acute) Lumbar back pain (Acute) Knee pain, right (Acute) Fall (Acute) Gait abnormality (Acute) Foraminal stenosis of lumbar region (Acute) Degenerative lumbar spinal stenosis (Acute) Elevated BP without diagnosis of hypertension (Acute) - VTE Risk Labs: VTE Related Lab Results Hgb 13.0 g/dL (12.2-16.2) 10/20/20 06:15 Hct 42.8 % (37.0-47.0) 10/20/20 06:15 Plt Count 292 K/mm3 (142-424) 10/20/20 06:15 BUN 14 mg/dl (7-17) 10/20/20 06:15 Creatinine 0.70 mg/dl (0.52-1.04) 10/20/20 06:15 Estimated Creat Clear 51 mL/min (50-200) 10/20/20 06:15 Was VTE Risk Assessment Performed: Yes VTE Score: 3 VTE Risk Level: Low Risk - Prophylaxis VTE Prophylaxis Ordered?: Yes Types of VTE Prophylaxis: TEDS Knee High Location of Applied Device: Bilateral Lower Extremeties
[2020-10-20 08:00] VITALS: BP 149/76; PULSE 63; RESP 20; TEMP 36.9; O2SAT 97
--- NOTE | 2020-10-20 09:02 | CT_ITS ---
PROCEDURE: CT KNEE RT WO CON CLINICAL HISTORY: rule out tibial plateau fracture Injury with pain, abnormal radiograph, evaluate for plateau fracture COMPARISON: No exams were available for comparison TECHNIQUE: Axial images obtained with sagittal and coronal reformats. All CT scans at the facility use one or more dose reduction, viz: automated exposure control, ma/kV adjustment per patient size (including targeted exams where dose is matched to indication, i.e. head), or iterative reconstruction technique. FINDINGS: There is generalized osteopenia. There is mild tricompartmental osteoarthritic change. No fracture or dislocation is evident. There is motion artifact despite repeating the exam. There is a small suprapatellar effusion. Minimal chondrocalcinosis involves the medial meniscus. IMPRESSION: Osteoarthritic change, no acute fracture. Dictated by: Maurice Turner MD 10/20/2020 11:01 Maurice Turner MD in [facility] 10/20/2020 11:01
--- NOTE | 2020-10-20 09:33 | HMH.HP ---
*Admission Date: 10/19/20 *Chief complaint: fall with pain *History of present illness: Ms. Rivera is a 75yo female with a hx of dementia who according to the ER note, was getting up from her chair and fell headfirst onto the ground hurting her lower back and both of her knees. The patient is not awake during exam. She does arouse to voice but falls back asleep. She had complaints of hurting all over in the emergency room and was alert to self only. She had a cervical spine CT showing arthritis but nothing acute, a chest x-ray showing nothing acute, head CT showing no intracranial findings, a lumbar spine CT showing wedge compression changes of T12 (radiology felt she may need an MRI), and a thoracic spine CT showing wedge compression changes at T7 and T12 which may be better evaluated with MRI. She had a pelvic x-ray showing severe osteoarthritis of the right hip with collapse of the femoral head and possible fracture at the base of the right acetabulum. A hip CT was then done showing severe osteoarthritis of the right hip with a fracture through the base of the lateral acetabular spur. There was also a possible nondisplaced fracture of the right inferior pubic ramus. A right knee x-ray showed a possible nondisplaced medial tibial plateau fracture. The patient was admitted and started on steroids and pain medication and orthopedics was consulted. [facility] History I have reviewed the patient's past medical history: Yes Medical History: Reports:: Dementia Denies:: Cancer, Chronic Obstructive Pulmonary Disease (COPD), Diabetes Mellitus Type 1, Diabetes Mellitus Type 2, Hyperlipidemia, Hypertension, MRSA *Have you ever received a pneumonia vaccine?: No *Have you received a flu vaccine this season?: No Other Medical History: Reports: Other (legally blind) Other Surgeries: Yes: No Previous Surgery, Cholecystectomy, Tubal LigationComment Only: Other (tumor removal uterine wall) - *Social History Smoking Status: Former smoker Alcohol Intake: never *Occupational Status:: disabled Housing: house Household Members: children *Travel in the last 8 weeks: None Family Hx:: Coronary Artery Disease, Heart Attack, Stroke Review of Systems - Review of Systems Review of systems:: unable to obtain - *Neurologic Denies confusion, Denies localized weakness, Denies seizure-like activity Meds Home Medications Medication Instructions Recorded Confirmed Type No Known Home Medications 10/19/20 10/20/20 History Allergies Allergy/AdvReac Type Severity Reaction Status Date / Time No Known Allergies Allergy Verified 10/19/20 18:50 Exam Vital signs and Labs for Last 24 Hours: Temp Pulse Resp BP Pulse Ox 98.4 F 63 20 149/76 H 97 10/20/20 08:00 10/20/20 08:00 10/20/20 08:00 10/20/20 08:00 10/20/20 08:00 Laboratory Results - last 24 hr 10/19/20 18:51: WBC 6.8, RBC 5.10, Hgb 13.5, Hct 43.9, MCV 86.2, MCH 26.4 L, MCHC 30.7 L, RDW 14.4, Plt Count 302, MPV 8.0, Neut % (Auto) 65.3, Lymph % (Auto) 16.7, Glenn % (Auto) 4.9, Eos % (Auto) 12.7 H, Baso % (Auto) 0.5, Neut # (Auto) 4.4, Lymph # (Auto) 1.1, Glenn # (Auto) 0.3, Eos # (Auto) 0.9 H, Baso # (Auto) 0.0, ESR 26 10/19/20 18:51: Sodium 139, Potassium 3.7, Chloride 106, Carbon Dioxide 29, Anion Gap 7.7, BUN 17, Creatinine 0.70, Estimated Creat Clear 51, Estimated GFR 81, Est GFR ( Amer) 98, Glucose 122 H, Calcium 9.6, Total Bilirubin 0.4, AST 26, ALT 29, Alkaline Phosphatase 105, C-Reactive Protein 2.0, Total Protein 7.5, Albumin 4.1, Globulin 3.4 H, Albumin/Globulin Ratio 1.2 10/19/20 18:51: SARS-CoV-2 IgG Ab (Rapid) Negative, SARS-CoV-2 IgM Ab (Rapid) Negative 10/19/20 21:56: Stool Occult Blood Negative 10/19/20 23:25: Urine Color Yellow, Urine Appearance Clear, Urine pH 6.0, Ur Specific [place] 1.025, Urine Protein Negative, Urine Glucose (UA) Negative, Urine Ketones Trace, Urine Blood Trace-l, Urine Nitrate Negative, Urine Bilirubin Negative, Urine Urobilinogen 0.2, Ur Leukocyte Estera
[2020-10-20 09:50] LABS: Lymphocytes % 9 % (10-50); Neutrophils % 91 % (42-76); Platelet Estimate Normal; RBC Morphology Normal; Total Cells Counted 100
--- NOTE | 2020-10-20 10:39 | HMH.ORTHOCON ---
*Admission Date: 10/19/20 *Reason for consult:: s/p fall *History of present illness: 75yo F admitted overnight after a fall at home last night. She is sleeping this morning and difficult to awaken, does not follow questioning and appears confused. She has a history of dementia and there is not family present to provide additional history beyond chart review. According to report she was getting up from a chair last night and fell headfirst onto the ground. Pain was reported in the back and knees. CT scans of the head and cervical spine were negative for acute injury. CT scan of thoracic spine revealed 2 compression fractures. The R hip has severe arthritis but no acute injury seen. Questionable non-displaced R superior pubic ramus fracture noted on report, which I did not appreciate. X-ray of R knee with questionable non-displaced tibial plateau fracture, which I did not appreciate on CT. Her medical history is significant for COPD, dementia, DM, HL, HTN, h/o MRSA infection; legally blind. She is a former smoker, disabled. It is unclear what her functional status is. [facility] History I have reviewed the patient's past medical history: Yes Medical History: Reports:: Dementia Denies:: Cancer, Chronic Obstructive Pulmonary Disease (COPD), Diabetes Mellitus Type 1, Diabetes Mellitus Type 2, Hyperlipidemia, Hypertension, MRSA *Have you ever received a pneumonia vaccine?: No *Have you received a flu vaccine this season?: No Other Medical History: Reports: Other (legally blind) Other Surgeries: Yes: No Previous Surgery, Cholecystectomy, Tubal LigationComment Only: Other (tumor removal uterine wall) - *Social History Smoking Status: Former smoker Alcohol Intake: never *Occupational Status:: disabled Housing: house Household Members: children *Travel in the last 8 weeks: None Family Hx:: Coronary Artery Disease, Heart Attack, Stroke Review of Systems - Review of Systems Review of systems:: pertinent systems reviewed and negative unless documented below - *Neurologic Denies confusion, Denies localized weakness, Denies seizure-like activity Meds Home Medications Medication Instructions Recorded Confirmed Type No Known Home Medications 10/19/20 10/20/20 History Allergies Allergy/AdvReac Type Severity Reaction Status Date / Time No Known Allergies Allergy Verified 10/19/20 18:50 Exam Vital signs and Labs for Last 24 Hours: Temp Pulse Resp BP Pulse Ox 98.4 F 63 20 149/76 H 97 10/20/20 08:00 10/20/20 08:00 10/20/20 08:00 10/20/20 08:00 10/20/20 08:00 Laboratory Results - last 24 hr 10/19/20 18:51: WBC 6.8, RBC 5.10, Hgb 13.5, Hct 43.9, MCV 86.2, MCH 26.4 L, MCHC 30.7 L, RDW 14.4, Plt Count 302, MPV 8.0, Neut % (Auto) 65.3, Lymph % (Auto) 16.7, Grant % (Auto) 4.9, Eos % (Auto) 12.7 H, Baso % (Auto) 0.5, Neut # (Auto) 4.4, Lymph # (Auto) 1.1, Grant # (Auto) 0.3, Eos # (Auto) 0.9 H, Baso # (Auto) 0.0, ESR 26 10/19/20 18:51: Sodium 139, Potassium 3.7, Chloride 106, Carbon Dioxide 29, Anion Gap 7.7, BUN 17, Creatinine 0.70, Estimated Creat Clear 51, Estimated GFR 81, Est GFR ( Amer) 98, Glucose 122 H, Calcium 9.6, Total Bilirubin 0.4, AST 26, ALT 29, Alkaline Phosphatase 105, C-Reactive Protein 2.0, Total Protein 7.5, Albumin 4.1, Globulin 3.4 H, Albumin/Globulin Ratio 1.2 10/19/20 18:51: SARS-CoV-2 IgG Ab (Rapid) Negative, SARS-CoV-2 IgM Ab (Rapid) Negative 10/19/20 21:56: Stool Occult Blood Negative 10/19/20 23:25: Urine Color Yellow, Urine Appearance Clear, Urine pH 6.0, Ur Specific [place] 1.025, Urine Protein Negative, Urine Glucose (UA) Negative, Urine Ketones Trace, Urine Blood Trace-l, Urine Nitrate Negative, Urine Bilirubin Negative, Urine Urobilinogen 0.2, Ur Leukocyte Esterase Trace, Urine RBC 5-10, Urine WBC 3-5, Urine Bacteria 1+, Urine Mucus 1+ 10/19/20 23:25: Urine Opiates Screen Negative, Urine Methadone Screen Negative, Ur Barbituates Screen Negative, Ur Phencyclidine Scrn Negative, Ur Amphetamines Screen Negativ
--- NOTE | 2020-10-20 14:06 | SW/DCPLANNER ---
Addendum entered by Dominga Zapata 10/21/20 11:56: Giovana with [facility] is reviewing patient information. I have updated patients daughter regarding discharge plans and informed daughter that she could transport patient once medically stable for discharge. Daughter stated that she would have to speak with friend about borrowing her car. I informed daughter to begin working on transportation because patient could discharge later today pending insurance PAMoises FINLEY swab has been ordered for this patient. Addendum entered by Dominga Zapata 10/21/20 09:19: Patient is agreeable to placement at this time: patient information has been faxed to Giovana at [facility] due to being a facility accepting new patient and being in network with patients insurance [email or web address] Original Note: I have spoke with patients daughter regarding discharge plans. Daughter stated that she is with patient 08/04 and assist with all ADL's at home. Daughter stated that she is willing to take this patient home once medically stable for discharge. I have explained to daughter that PT/OT will evaluate this patient and give their recommendation regarding home health vs placement. Daughter stated that she is fine with either option. I will follow up with patient and daughter once PT/OT evaluation is ordered and completed. I did attempt to speak with patient but was unable to wake patient at this time. Discharge date is unknown and if PT/OT states that patient is safe to return home APS referral will be made due to condition of patient at admission.
--- NOTE | 2020-10-20 15:22 | HMH.PTEV ---
Physical Therapy Evaluation Rehab PT IP Evaluation Start: 10/20/20 14:28 Freq: ONCE Status: Active Protocol: Document 10/20/20 14:28 MOLINA (Rec: 10/20/20 15:22 MOLINA [id number]) Subjective/History History History This is the initial IPPT evalaution for Binta Rivera. Pt is a 75 y/o female w/ hx of dementia. Pt apparently fell at home and landed on both knees and hit head. After fall pt came into ER had some radiographs which showed non- displaced fx of R side pubic rami Subjective Subjective Pt reports pain w/ R side WBing Rehab PT IP Eval Objective Appearance Patient Behavior Cooperative,Confused Patient Orientation Name Difficulty following instructions none Speech Pattern Clear,Rambling Ambulation Patient Able to Ambulate Yes Ambulation Observation IP General Gait Pattern Observation Shuffling Step,Decrease Weight Bear (R),Decrease Stride Lngth (L) Ambulation Distance (feet) 5 Ambulation Assistive Device None Ambulation Ability Minimal x 1 (25% assist) Balance Ability to Arise Able, uses arms to help Sitting Balance Leans or slides in chair Standing Balance Unsteady Dynamic Sitting Balance Ability Fair Dynamic Standing Balance Ability Poor Transfers Bed Transfer Ability Contact Guard/Hand Hold Chair Transfer Ability Contact Guard/Hand Hold Sit to Stand Bed Transfer Ability Contact Guard/Hand Hold Sit to Stand Chair Transfer Ability Contact Guard/Hand Hold Rehab PT IP prob,goals,plan Problems Date of Evaluation: 10/20/20 PT IP Problems Bed Mobility,Transfers,Gait, Balance,Self care,Safety Rehab Potential Rehab Potential Fair Equipment Needs Assistive Devices Rolling / Wheeled Walker Plan PT Intervention Plan Bed Mobility,Transfers,Gait, Balance,Self care,Safety, Therapeutic Exercise PT Plan Frequency BID Duration LOS Discharge Goals Bed Transfer Ability Contact Guard/Hand Hold Sit to Stand Chair Transfer Ability Contact Guard/Hand Hold, Minimal x 1 (25% assist) Ambulation Assistive Device Rolling Walker Ambulation Distance (feet) 15 Discharge Plan PT Discharge Plan Pt would benefit from
--- NOTE | 2020-10-20 15:23 | HMH.OTEV ---
OT Inpatient Evaluation Rehab OT IP Evaluation Start: 10/20/20 14:28 Freq: ONCE Status: Complete Protocol: Document 10/20/20 15:15 [facility] (Rec: 10/20/20 15:23 [facility] [id number]) Rehab OT IP Assessment Subjective History Pt oriented to person on arrival. Pt agreeable to engage in therapy evaluation. Pt was admitted via ED on 10/19 after a fall resulting in an acetabulum spur fx. Pt has a past medical history of HTN , hyperlipidemia, COPD, DM type 2, MRSA, and cancer. Pt reports prior to her fall she was living with her daughter and grandson. Pt claims she was independent with dressing, showering, and feeding. Pt was dependent upon family for IADLS. Pt used a cane during ambulation. Subjective I just fell. Objective Patient Orientation Person Upper Extremity Gross ROM WFL Bed Mobility bed mobility-scooting,bed mobility - supine/sit,bed mobility - rolling Assist Level Minimal x 1 (25% assist) Transfer Training Sit/Stand Transfer Assist Level Minimal x 1 (25% assist) Chair Transfer Ability Minimal x 1 (25% assist) Chair Transfer Technique Sit to/from Ambulatory Chair Transfer Assistive Devices Rolling Walker Rehab OT IP prob,goals,plan Problems Date of Evaluation: 10/20/20 OT IP Problems Bed Mobility,Transfers,Gait, Balance,Self care,Safety Rehab Potential Rehab Potential Good Equipment Needs Assistive Devices Rolling / Wheeled Walker Plan OT intervention Plan Bed Mobility,Transfers,Gait, Balance,Self care,Safety, Therapeutic Exercise OT Plan Frequency Daily Duration LOS Discharge Goals Bed Mobility Ability Standby Assistance Sit to Stand Chair Transfer Ability Contact Guard/Hand Hold Chair Transfer Ability Contact Guard/Hand Hold Chair Transfer Technique Sit to/from Ambulatory Chair Transfer Assistive Devices Rolling Walker Self care skills fully toilet trained,uses utensils to feed self Feeding Ability Independent Lower Body Dressing Ability Ari
[2020-10-20 16:00] VITALS: BP 130/52; PULSE 62; RESP 19; TEMP 36.8; O2SAT 96
[2020-10-20 20:00] VITALS: BP 163/71; PULSE 66; RESP 16; TEMP 36.6; O2SAT 98
--- NOTE | 2020-10-20 23:48 | PC.NURSE ---
[address] PT AWAKE AND UP IN CHAIR . TRASH EMPTIED
[2020-10-21 04:00] VITALS: BP 139/72; PULSE 71; RESP 16; TEMP 36.4; O2SAT 96
--- NOTE | 2020-10-21 06:15 | PC.NURSE ---
0600 [address] PATIENT ASLEEP AT THIS TIME.
[2020-10-21 08:00] VITALS: BP 142/79; PULSE 101; RESP 16; TEMP 36.9; O2SAT 94
--- NOTE | 2020-10-21 08:02 | PC.NURSE ---
Pt. able to state name and , unable to state year or place. Did not attempt to get out of bed unassisted. No c/o n/v/d, soa, dizziness or pain during the night.
--- NOTE | 2020-10-21 08:51 | HMH.ACPN2 ---
Internal Medicine - PN: Subj *Date: 10/21/20 *Time: 08:51 Interval history: Patient states she feels a little bit better today. She slept all night. She is concerned because she is picking bugs out of her hair. She states she is hungry this morning and her only pain is in her ankles. Exam Vital signs and Labs for Last 24 Hours: Temp Pulse Resp BP Pulse Ox 98.5 F 101 H 16 142/79 H 94 L 10/21/20 08:00 10/21/20 08:00 10/21/20 08:00 10/21/20 08:00 10/21/20 08:00 Laboratory Results - last 24 hr 10/20/20 06:15: Total Counted 100, Neutrophils % (Manual) 91 H, Lymphocytes % (Manual) 9 L, Platelet Estimate Normal, RBC Morphology Normal I & O for Last 24 hours: Intake & Output 10/18/20 10/19/20 10/20/20 10/21/20 11:59 11:59 11:59 11:59 Intake Total 1202 / 1202 0 / 0 Output Total 300 / 300 550 / 550 Balance 902 / 902 -550 / -550 Weight 150 lb - Constitutional no acute distress - *Routine Respiratory Exam Present: CTA bilaterally - *Routine Cardiovascular Exam Present: RRR - *Routine Abdominal Exam Present: soft, normoactive bowel sounds. Absent: tenderness - *Routine Extremities Exam Absent: cyanosis, clubbing, edema - *Routine Neurological Exam Present: alert, oriented X3 Assessment and Plan (1) Fall Status: Acute Qualifiers: Encounter type: initial encounter Qualified Code(s): W19.XXXA - Unspecified fall, initial encounter Category: Medical Code(s): W19.XXXA - Unspecified fall, initial encounter (2) Elevated BP without diagnosis of hypertension Status: Acute Category: Medical Code(s): R03.0 - Elevated blood-pressure reading, without diagnosis of hypertension (3) Degenerative lumbar spinal stenosis Status: Chronic Category: Medical Code(s): M48.061 - Spinal stenosis, lumbar region without neurogenic claudication (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 She is concerned with possible compression fractures in her back and recommends an MRI. She also recommends physical therapy. Disposition is likely to be a problem with the patient. Care management is working on this. Will discuss further care with Dr. Perkins. We will also start the patient on a diet today.
[2020-10-21 11:25] VITALS: BMI 28.3
[2020-10-21 15:23] VITALS: BP 142/88; PULSE 81; RESP 16; TEMP 36.8; O2SAT 96
--- NOTE | 2020-10-21 18:40 | PC.NURSE ---
SHE IS AOX4, ABLE TO MAKE NEEDS KNOWN TO STAFF, SHE HAS BEEN UP TO CHAIR FOR MOST OF SHIFT, LARGE FORMED BM NOTED, PT DID NOT MAKE IT RO RESTROOM FOR ELIMINATION, SHE HAS TOLERATED RA WELL TODAY WITH NO COMPLAINTS VOICED, SHE HAS DENIED ANY ITCHING THIS SHIFT, NO LIVE LICE WERE NOTICED DURING ASSESSMENT THIS SHIFT, HER VITAL SIGNS HAVE REMAINED STABLE T/O SHIFT.
[2020-10-21 20:00] VITALS: BP 136/76; PULSE 79; RESP 18; TEMP 37.2; O2SAT 95
[2020-10-22 04:00] VITALS: BP 163/76; PULSE 77; RESP 18; TEMP 37; O2SAT 93
[2020-10-22 05:00] VITALS: BMI 28.5
--- NOTE | 2020-10-22 07:57 | PC.NURSE ---
PT. ABLE TO STATE NAME AND , UNABLE TO STATE YEAR OR PLACE. PT. DID NOT ATTEMPT TO GET OUT OF BED UNASSISTED. NO C/O N/V/D, SOA, DIZZINESS OR PAIN. FC IN PLACE.
[2020-10-22 08:00] VITALS: BP 152/77; PULSE 81; RESP 17; TEMP 36.9; O2SAT 97
--- NOTE | 2020-10-22 08:57 | HMH.ACPN2 ---
Internal Medicine - PN: Subj *Date: 10/22/20 *Time: 08:57 Interval history: Patient states she feels a little bit better today. She denies any pain and is sitting up in a chair this morning. She states she ate all of her breakfast but only slept a few minutes at a time throughout the night. Exam Vital signs and Labs for Last 24 Hours: Temp Pulse Resp BP Pulse Ox 98.6 F 77 18 163/76 H 93 L 10/22/20 04:00 10/22/20 04:00 10/22/20 04:00 10/22/20 04:00 10/22/20 04:00 I & O for Last 24 hours: Intake & Output 10/19/20 10/20/20 10/21/20 10/22/20 11:59 11:59 11:59 11:59 Intake Total 1202 / 1202 0 / 0 600 / 600 Output Total 300 / 300 550 / 550 1000 / 1000 Balance 902 / 902 -550 / -550 -400 / -400 Weight 150 lb 149 lb 14.629 oz 150 lb 15.208 oz Microbiology Reports for the Last 24 Hours: Microbiology 10/21/20 10:50 Nasopharyngeal Coronavirus COVID-19 PCR - Final - Constitutional no acute distress - *Routine Respiratory Exam Present: CTA bilaterally - *Routine Cardiovascular Exam Present: RRR - *Routine Abdominal Exam Present: soft, normoactive bowel sounds. Absent: tenderness - *Routine Extremities Exam Present: edema (trace bilateral LE edema). Absent: cyanosis, clubbing - *Routine Skin Exam Present: warm. Absent: rash - *Routine Neurological Exam Present: alert Assessment and Plan (1) Fall Status: Acute Qualifiers: Encounter type: initial encounter Qualified Code(s): W19.XXXA - Unspecified fall, initial encounter Category: Medical Code(s): W19.XXXA - Unspecified fall, initial encounter (2) Elevated BP without diagnosis of hypertension Status: Acute Category: Medical Code(s): R03.0 - Elevated blood-pressure reading, without diagnosis of hypertension (3) Degenerative lumbar spinal stenosis Status: Chronic Category: Medical Code(s): M48.061 - Spinal stenosis, lumbar region without neurogenic claudication (4) 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 Care management is working on placement.
--- NOTE | 2020-10-22 18:58 | HMH.DCSUM ---
General - General Admission date:: 10/20/20 Discharge date: 10/23/20 HPI HPI: Ms. Rivera is a 75yo female with a hx of dementia who according to the ER note, was getting up from her chair and fell headfirst onto the ground hurting her lower back and both of her knees. The patient is not awake during exam. She does arouse to voice but falls back asleep. She had complaints of hurting all over in the emergency room and was alert to self only. She had a cervical spine CT showing arthritis but nothing acute, a chest x-ray showing nothing acute, head CT showing no intracranial findings, a lumbar spine CT showing wedge compression changes of T12 (radiology felt she may need an MRI), and a thoracic spine CT showing wedge compression changes at T7 and T12 which may be better evaluated with MRI. She had a pelvic x-ray showing severe osteoarthritis of the right hip with collapse of the femoral head and possible fracture at the base of the right acetabulum. A hip CT was then done showing severe osteoarthritis of the right hip with a fracture through the base of the lateral acetabular spur. There was also a possible nondisplaced fracture of the right inferior pubic ramus. A right knee x-ray showed a possible nondisplaced medial tibial plateau fracture. The patient was admitted and started on steroids and pain medication and orthopedics was consulted. Hospital Course Hospital Course: The radiologic findings were as described above. Patient was seen in consultation by Dr. Farzaneh Fischer. It was felt that she had no reason for any surgical interventions. She had a physical therapy consult. By the end of her stay she was clinically stable. She was able to sit up and eat. She was alert and conversant. Arrangements were made for transfer to [facility]. Objective Vital signs: Temp Pulse Resp BP Pulse Ox 98.5 F 81 17 152/77 H 97 10/22/20 08:00 10/22/20 08:00 10/22/20 08:00 10/22/20 08:00 10/22/20 08:00 no acute distress (She does have pain in the right leg and hip when she transfers.) - *Routine HEENT Exam Eye: Present: PERRL (She has a visual deficit that is significant. She usually stares directly ahead.) ENT: Present: mucous membranes moist - *Routine Neck Exam Present: supple. Absent: JVD - *Routine Respiratory Exam Present: CTA bilaterally - *Routine Cardiovascular Exam Present: RRR - *Routine Abdominal Exam Present: soft. Absent: tenderness, organomegaly, mass - *Routine Extremities Exam Present: tenderness (Mainly at the right hip right knee and somewhat at the right ankle.). Absent: edema - Routine Back/Spine/Pelvis Exam Back/Spine: Present: kyphosis - *Routine Skin Exam Present: intact Comments: She was treated for pediculosis of the scalp during her stay. - *Routine Neurological Exam Present: alert, oriented X3 - Routine Psychiatric Exam Comments: Pleasant with some confusion at times. 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
[2020-10-22 20:00] VITALS: BP 138/69; PULSE 91; RESP 18; TEMP 36.8; O2SAT 97
--- NOTE | 2020-10-22 20:24 | PC.NURSE ---
PT HAS BEEN SITTING UP IN THE CHAIR ALL SHIFT. EVERY TIME STAFF ENTER THE ROOM PT STATES I'M STILL PICKING ALL OF THE THESE BUGS OFF OF ME. PT HAS A PRESCRIPTION CREAM APPLIED FROM HEAD TO TOE THIS SHIFT. CREAM WAS ON PT FOR AN HOUR AND THEN PT WAS ASSISTED WITH A SHOWER. PT STATES SHE HAS NO IDEA HOW SHE GOT HEAD LICE B/C SHE DOES NOT GO ANYWHERE AND SHE IS NOT AROUND ANYBODY ELSE BUT HER DAUGHTER WHICH IS WHO SHE LIVES WITH. [facility] CALLED THIS AFTERNOON AND STATED THEY WOULD BE READY FOR PT TO COME TO FACILITY TOMORROW. ACCORDING TO THEM THEY HAVE BEEN COMMUNICATING WITH PT'S DAUGHTER AND SHE WAS GOING TO TRANSPORT PT TO [facility]. STAFF STATED PT HAVING LICE SHOULD NOT BE AN ISSUE B/C SHE WOULD BE IN A ROOM ALONE FOR 14 DAYS WHEN SHE ARRIVES TO THEIR FACILITY. NOTIFIED AND HE STATED HE WOULD WORK ON THE DISCHARGE SUMMARY. REPORT HAND OFF TO LORAINE GRIFFIN RN.
[2020-10-22 20:54] LABS: Hemoglobin A1C 5.2 % (4.0-6.0)
[2020-10-23 03:33] LABS: Microscopic, Urine URINE MICROSCOPIC (MICROSCOPIC)
[2020-10-23 03:46] LABS: Appearance,Urine CLOUDY (Clear); Bilirubin,Urine Negative (Negative); Blood, Urine 3+ (Negative); Color,Urine YELLOW (Yellow); Glucose,Urine (UA) Negative (Negative); Ketones,Urine Negative (Negative); Leukocyte Esterase,Urine 1+ (Negative); Nitrate,Urine POSITIVE (Negative); Protein,Urine 2+ (Negative); Specific Gravity, Urine <= 1.005 (1.005-1.030); Urobilinogen,Urine 0.2 EU/dl (0.2)
[2020-10-23 03:49] LABS: PH,Urine >= 9.0 (5.0-8.5)
[2020-10-23 03:50] LABS: Amorphous Sediment,Urine 2+ /lpf; RBC,Urine 20-50 #/hpf (0-3)
[2020-10-23 04:00] VITALS: BP 165/77; PULSE 79; RESP 15; TEMP 36.9; O2SAT 97
[2020-10-23 04:42] VITALS: BMI 28.3
--- NOTE | 2020-10-23 06:36 | PC.NURSE ---
PT. ABLE TO STATE NAME AND , UNABLE TO STATE YEAR OR PLACE, CAN CONVERSE AND STATE NEEDS. NO C/O N/V/D, SOA, DIZZINESS OR PAIN. FC IN PLACE, LIGHT ERA WITH SEDIMENT.
[2020-10-23 08:00] VITALS: BP 153/74; PULSE 76; RESP 18; TEMP 36.8; O2SAT 93
--- NOTE | 2020-10-23 09:19 | P.PN_ITS ---
Internal Medicine - PN: Subj *Date: 10/23/20 *Time: 09:19 Interval history: She is resting quietly. She is ready for discharge. Luevano catheter will be discontinued. Urine culture was obtained and is pending. I will recheck labs and an A1c before she goes. Exam Vital signs and Labs for Last 24 Hours: Temp Pulse Resp BP Pulse Ox 98.5 F 79 15 165/77 H 97 10/23/20 04:00 10/23/20 04:00 10/23/20 04:00 10/23/20 04:00 10/23/20 04:00 Laboratory Results - last 24 hr 10/22/20 20:30: Hemoglobin A1c 5.2 10/23/20 03:25: Urine Color Yellow, Urine Appearance Cloudy, Urine pH >= 9.0 H, Ur Specific [place] <= 1.005, Urine Protein 2+, Urine Glucose (UA) Negative, Urine Ketones Negative, Urine Blood 3+, Urine Nitrate Positive, Urine Bilirubin Negative, Urine Urobilinogen 0.2, Ur Leukocyte Esterase 1+ A, Urine RBC 20-50, Urine WBC 5-10, Amorphous Sediment 2+ I & O for Last 24 hours: Intake & Output 10/20/20 10/21/20 10/22/20 10/23/20 11:59 11:59 11:59 11:59 Intake Total 1202 / 1202 0 / 0 960 / 960 960 / 960 Output Total 300 / 300 550 / 550 1000 / 1000 525 / 525 Balance 902 / 902 -550 / -550 -40 / -40 435 / 435 Weight 150 lb 149 lb 14.629 oz 150 lb 15.208 oz 150 lb - Constitutional no acute distress - *Routine Respiratory Exam Present: CTA bilaterally. Absent: respiratory distress - *Routine Cardiovascular Exam Present: RRR - *Routine Extremities Exam Present: edema (Some pedal edema) - *Routine Neurological Exam No change. Assessment and Plan (1) Acetabulum fracture, right Status: Acute Category: Medical Code(s): S32.401A - Unspecified fracture of right acetabulum, initial encounter for closed fracture (2) Contusion of right leg Status: Acute Category: Medical Code(s): S80.11XA - Contusion of right lower leg, initial encounter (3) Fall Status: Acute Qualifiers: Encounter type: initial encounter Qualified Code(s): W19.XXXA - Unspecified fall, initial encounter Category: Medical Code(s): W19.XXXA - Unspecified fall, initial encounter (4) Elevated BP without diagnosis of hypertension Status: Acute Category: Medical Code(s): R03.0 - Elevated blood-pressure reading, without diagnosis of hypertension (5) Degenerative lumbar spinal stenosis Status: Chronic Category: Medical Code(s): M48.061 - Spinal stenosis, lumbar region without neurogenic claudication (6) 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.
[2020-10-23 11:16] LABS: Basophils # 0.1 K/mm3 (0-0.2); Basophils % 1.2 % (0.1-2.0); Eosinophils # 0.8 K/mm3 (0.0-0.4); Eosinophils % 7.3 % (0.1-12.0); Hematocrit 40.8 % (37.0-47.0); Hemoglobin 12.7 g/dL (12.2-16.2); Lymphocytes # 1.3 K/mm3 (0.7-4.5); Lymphocytes % 12.5 % (10-50); Mean Corpuscular HGB Conc 31.1 g/dL (31.8-35.4); Mean Corpuscular Hemoglobin 26.9 pg (27.0-31.2); Mean Corpuscular Volume 86.5 fl (81-99); Mean Platelet Volume 15.4 fl (7.4-10.4); Monocytes # 0.6 K/mm3 (0.1-1.0); Monocytes % 5.7 % (1.7-9.3); Neutrophils # 7.8 K/mm3 (1.8-7.8); Neutrophils % 73.4 % (37.0-80.0); Platelet Count 289 K/mm3 (142-424); Red Blood Count 4.71 M/mm3 (4.20-5.40); Red Cell Distribution Width 17.5 % (11.5-17.5); White Blood Count 10.6 K/mm3 (4.8-10.8)
[2020-10-23 11:22] LABS: Chloride 107 mmol/L (98-107)
[2020-10-23 11:23] LABS: Potassium 3.6 mmoL/L (3.5-5.1); Sodium 139 mmol/L (136-145)
[2020-10-23 11:25] LABS: Blood Urea Nitrogen 16 mg/dl (7-17); Creatinine Clearance Estimated 51 mL/min (50-200); Estimated Glomerular Filt Rate 70 ml/min (>60); GFR (African American) 84 ML/MIN (>60)
[2020-10-23 11:26] LABS: Anion Gap 6.6 mEq/L (5-15); Calcium 9.2 mg/dl (8.4-10.2); Carbon Dioxide 29 mmol/L (22.0-30.0); Glucose 111 mg/dl (74-100)
[2020-10-23 13:38] LABS: Hemoglobin A1C 5.2 % (4.0-6.0)
== END 2020-10-23 17:27 | DRG 536 ==
LOC: ER 22:38 → 2ND 10-20 11:07
PROVIDERS: Emergency Medicine; Admitting Provider Family Medicine; Emergency Provider Emergency Medicine; PCP Family Medicine; Visit Provider Family Medicine
DX: S32.401A Unspecified fracture of right acetabulum, initial encounter for closed fracture (principal); S80.11XA Contusion of right lower leg, initial encounter; M48.061 Spinal stenosis, lumbar region without neurogenic claudication; B85.2 Pediculosis, unspecified; H54.8 Legal blindness, as defined in USA; W19.XXXA Unspecified fall, initial encounter; Y92.019 Unspecified place in single-family (private) house as the place of occurrence of the external cause; M16.11 Unilateral primary osteoarthritis, right hip
CPT/HCPCS: 36415; 70450; 71045; 72125; 72128; 72131; 72170; 73562; 73700; 80048; 80053; 80305; 81001; 82272; 83036; 83735; 85007; 85025; 85651; 86140; 86328; 87086; 87088; 87186; 96365; 96375; 97110; 97161; 97166; 97530; 97535; 99284; G0328; U0003

== ENCOUNTER → 2021-01-20 07:09 | Outpatient (CLI) | payer MEDICARE, MEDICAID, SELFPAY ==
--- NOTE | 2021-01-20 07:19 | CT_ITS ---
PROCEDURE: CT HEAD/BRAIN WO CON CLINICAL INDICATION: CONFUSION AND LETHARGY, UNABLE TO GRASP W/RT HAND COMPARISON: CT CT HEAD/BRAIN WO CON from 08/25/[address] HEAD/BRAIN WO CON from 10/19/2020 TECHNIQUE: Axial images obtained. All CT scans at the facility use one or more dose reduction, viz: automated exposure control, ma/kV adjustment per patient size (including targeted exams where dose is matched to indication, i.e. head), or iterative reconstruction technique. FINDINGS: There is generalized atrophy with hypoattenuation of the periventricular white matter consistent with microangiopathic changes. There is a new area of hyperdensity in the left frontal parietal junction within the white matter. This measures approximately 1 cm. This may represent a small focus of hemorrhage or hyperdense nodule. No midline shift or mass effect is evident. No other significant anomalies are evident. The calvarium has an unremarkable appearance. No mastoid effusion. No sinus air-fluid level. IMPRESSION: New small hyperdensity in the deep white matter of the left frontal parietal junction suspicious for a small focus of hemorrhage or hyperdense nodule. Follow-up suggested. Dictated by: Maurice Turner MD 01/20/2021 19:22 Maurice Turner MD in [place] 01/20/2021 19:22
== END ==
PROVIDERS: PCP Family Medicine; Visit Provider Family Medicine
DX: R41.0 Disorientation, unspecified (principal); R53.83 Other fatigue
CPT/HCPCS: 70450

== ENCOUNTER 2021-06-30 21:45 | Emergency (ER) | payer MEDICARE, MEDICAID, SELFPAY ==
[2021-06-30 22:14] VITALS: BP 154/71; PULSE 81; O2SAT 100
[2021-06-30 22:15] VITALS: BP 145/98; PULSE 89; RESP 21; TEMP 36.7; O2SAT 99; BMI 29.8
--- NOTE | 2021-06-30 22:17 | PC.NURSE ---
EMS arrived with pt @ [phone]
--- NOTE | 2021-06-30 22:38 | XR_ITS ---
PROCEDURE INFORMATION: Exam: XR Right Shoulder Exam date and time: 06/30/2021 10:38 PM Age: 76 years old Clinical indication: Injury or trauma; Fall; Blunt trauma (contusions or hematomas); Shoulder; Right; Injury date: 06/30/2021 TECHNIQUE: Imaging protocol: XR Right shoulder. Views: 2 or more views. COMPARISON: CR XR CHEST AP 06/30/2021 11:16 PM FINDINGS: Bones/joints: There is osteopenia. Mild degenerative change. No acute fracture or dislocation. Soft tissues: Normal. IMPRESSION: No acute osseous abnormality.
--- NOTE | 2021-06-30 22:38 | XR_ITS ---
PROCEDURE INFORMATION: Exam: XR Right Elbow Exam date and time: 06/30/2021 10:38 PM Age: 76 years old Clinical indication: Injury or trauma; Fall; Blunt trauma (contusions or hematomas); Elbow; Right; Injury date: 06/30/2021 TECHNIQUE: Imaging protocol: XR Right elbow. Views: 1 or 2 views. COMPARISON: CR XR SHOULDER RT MIN 2V 06/30/2021 11:17 PM FINDINGS: Bones/joints: Osteopenia. No acute fracture or dislocation. Soft tissues: Normal. IMPRESSION: No acute osseous abnormality.
--- NOTE | 2021-06-30 22:38 | XR_ITS ---
PROCEDURE INFORMATION: Exam: XR Right Tibia and Fibula Exam date and time: 06/30/2021 10:38 PM Age: 76 years old Clinical indication: Injury or trauma; Fall; Blunt trauma; Lower leg; Right; Injury date: 06/30/2021; Injury details: Fell TECHNIQUE: Imaging protocol: XR Right tibia and fibula. Views: 2 views. COMPARISON: CR XR KNEE RT 4V 06/30/2021 11:26 PM FINDINGS: Bones/joints: Diffuse osteopenia. There are degenerative changes. No acute fracture or dislocation. Soft tissues: Normal. Vasculature: Vascular calcification. IMPRESSION: No acute osseous abnormality.
--- NOTE | 2021-06-30 22:38 | XR_ITS ---
PROCEDURE INFORMATION: Exam: XR Right Knee Exam date and time: 06/30/2021 10:38 PM Age: 76 years old Clinical indication: Injury or trauma; Fall; Blunt trauma; Knee; Right; Injury date: 06/30/2021 TECHNIQUE: Imaging protocol: XR Right knee. Views: 4 or more views. COMPARISON: CT KNEE RT WO CON 10/20/2020 10:18 AM FINDINGS: Bones/joints: Osteopenia. There are degenerative changes. No acute fracture or dislocation. No osseous destruction. Soft tissues: Normal. Vasculature: Vascular calcification. IMPRESSION: No acute osseous abnormality.
--- NOTE | 2021-06-30 22:38 | CT_ITS ---
PROCEDURE INFORMATION: Exam: CT Cervical Spine Without Contrast Exam date and time: 06/30/2021 10:38 PM Age: 76 years old Clinical indication: Injury or trauma; Fall; Blunt trauma; Injury date: 06/30/2021; Injury details: Fell; Additional info: Fall abraision mid frontal area TECHNIQUE: Imaging protocol: Computed tomography images of the cervical spine without contrast. Radiation optimization: All CT scans at this facility use at least one of these dose optimization techniques: automated exposure control; mA and/or kV adjustment per patient size (includes targeted exams where dose is matched to clinical indication); or iterative reconstruction. COMPARISON: CT CERVICAL SPINE WO CON 10/19/2020 7:23 PM FINDINGS: Bones/joints: Mild levoconvex curvature. Mild retrolisthesis of C5 on C6. Vertebral body heights are preserved. Kfsu-tm-[id number] degenerative change about the dens. Mild to moderate prevertebral osteophytosis. There are bilateral facet joint degenerative changes. No acute cervical spine fracture. Discs/Spinal canal/Neural foramina: Central canal stenosis most prominent C5-C6, likely [id number]. Multilevel cervical foraminal stenoses. Thyroid: Heterogeneous thyroid gland. Lungs: Lung apices are normal. Pleural spaces: No visible pneumothorax. Vasculature: Vascular calcification. Soft tissues: Unremarkable. IMPRESSION: No acute cervical spine fracture.
--- NOTE | 2021-06-30 22:38 | XR_ITS ---
PROCEDURE INFORMATION: Exam: XR Chest Exam date and time: 06/30/2021 10:38 PM Age: 76 years old Clinical indication: Injury or trauma; Fall; Blunt trauma (contusions or hematomas); Injury date: 06/30/2021 TECHNIQUE: Imaging protocol: XR of the chest. Views: 1 view. COMPARISON: CR XR CHEST PORTABLE 10/19/2020 7:35 PM FINDINGS: Lungs: Unremarkable. No consolidation. Pleural spaces: Unremarkable. No pleural effusion. No pneumothorax. Heart/Mediastinum: Cardiomegaly. Vasculature: Elongation of the thoracic aorta. Bones/joints: There are degenerative changes involving the spine. Osteopenia. Organs: Previous cholecystectomy. IMPRESSION: No acute abnormality.
--- NOTE | 2021-06-30 22:38 | CT_ITS ---
PROCEDURE INFORMATION: Exam: CT Head Without Contrast Exam date and time: 06/30/2021 10:38 PM Age: 76 years old Clinical indication: Injury or trauma; Fall; Blunt trauma (contusions or hematomas); Without loss of consciousness; Injury date: 06/30/2021; Additional info: Fall abraision mid frontal area of head TECHNIQUE: Imaging protocol: Computed tomography of the head without contrast. 3D rendering (Not supervised by radiologist): MIP and/or 3D reconstructed images were created by the technologist. Radiation optimization: All CT scans at this facility use at least one of these dose optimization techniques: automated exposure control; mA and/or kV adjustment per patient size (includes targeted exams where dose is matched to clinical indication); or iterative reconstruction. COMPARISON: CT HEAD/BRAIN WO CON 01/20/2021 7:25 AM FINDINGS: Brain: Decreased attenuation of the supratentorial white matter is likely secondary to chronic microvascular ischemia. No acute intracranial hemorrhage. Cerebral ventricles: Ventricular and subarachnoid spaces are age appropriate. Paranasal sinuses: Visualized sinuses are unremarkable. No fluid levels. Mastoid air cells: Visualized mastoid air cells are well aerated. Vasculature: Intracranial vascular calcification. Bones/joints: Unremarkable. No acute fracture. Soft tissues: Right anterior frontal scalp soft tissue swelling. IMPRESSION: No acute intracranial abnormality.
--- NOTE | 2021-06-30 22:38 | XR_ITS ---
PROCEDURE INFORMATION: Exam: XR Right Hip Exam date and time: 06/30/2021 10:38 PM Age: 76 years old Clinical indication: Injury or trauma; Fall; Blunt trauma (contusions or hematomas); Right; Hip; Injury date: 06/30/2021 TECHNIQUE: Imaging protocol: XR Right hip. Views: 2 or 3 views hip with pelvis when performed. COMPARISON: CT HIP RT WO CON 10/19/2020 8:59 PM FINDINGS: Bones/joints: Diffuse osteopenia. There are degenerative changes involving the lumbar spine, sacroiliac joints and right greater than left hip joints. No definite acute fracture or dislocation. Soft tissues: Unremarkable. IMPRESSION: Diffuse osteopenia without definite acute osseous abnormality. If clinical concern persists, CT may be considered.
[2021-06-30 22:51] VITALS: BP 162/74; PULSE 83; O2SAT 100
--- NOTE | 2021-06-30 23:06 | HMH.EDFALL ---
ED Disposition Clinical Impression: Head contusion Qualifiers: Encounter type: initial encounter Contusion of head detail: scalp Qualified Code(s): S00.03XA - Contusion of scalp, initial encounter Shoulder contusion Qualifiers: Encounter type: initial encounter Laterality: right Qualified Code(s): S40.011A - Contusion of right shoulder, initial encounter Fall Qualifiers: Encounter type: initial encounter Qualified Code(s): W19.XXXA - Unspecified fall, initial encounter Disposition: Home, Self-Care Condition on Discharge: Good Instructions: DI for Concussion Additional Instructions: resume prev orders Referrals: Satish Alvarado [Primary Care Provider] - - Critical Care Critical Care Time: No Attestation: On 06/30/21, the high probability of a clinically significant, sudden or life threatening deterioration of the following system(s) required my full and direct attention, intervention and personal management. The time I documented below is in addition to time spent performing reported procedures but includes the following listed in this critical care notation. Medical Decision Making - Medical Records Medical records reviewed: Yes: I reviewed the patient's medical records. - Timothy Inquiry Pt receiving controlled substance: No Vital Signs: 06/30/21 22:15 Temperature 98.0 F Temperature Source Oral Pulse Rate [Right] 89 Respiratory Rate 21 Blood Pressure [Right Arm] 145/98 H Blood Pressure Mean [Right Arm] 113 02 Sat by Pulse Oximetry 99 Oxygen Delivery Method Nasal Cannula Oxygen Flow Rate (LPM) 2 - Lab Data Lab results reviewed: Yes: I reviewed the patient's lab results. Lab Results 07/01/21 01:50: WBC 8.0, RBC 4.93, Hgb 13.0, Hct 41.9, MCV 84.9, MCH 26.4 L, MCHC 31.1 L, RDW 14.8, Plt Count 277, MPV 7.6, Neut % (Auto) 77.9, Lymph % (Auto) 15.0, Burt % (Auto) 5.5, Eos % (Auto) 1.4, Baso % (Auto) 0.3, Neut # (Auto) 6.2, Lymph # (Auto) 1.2, Burt # (Auto) 0.4, Eos # (Auto) 0.1, Baso # (Auto) 0.0, ESR 25 07/01/21 01:50: Sodium 138, Potassium 4.3, Chloride 107, Carbon Dioxide 28, Anion Gap 7.3, BUN 21 H, Creatinine 0.50 L, Estimated Creat Clear 59, Estimated GFR 120, Est GFR ( Amer) 145, Glucose 123 H, Calcium 9.0, Magnesium 2.0, Total Bilirubin 0.4, AST 33, ALT 32, Alkaline Phosphatase 108, Troponin I < 0.01, C-Reactive Protein 36.3 H, Total Protein 6.9, Albumin 3.4 L, Globulin 3.5 H, Albumin/Globulin Ratio 1.0 L, Procalcitonin 0.074 Result diagrams: 07/01/21 01:50 07/01/21 01:50 Orders (Tests/Meds): ORDERS Category Date Time Status Rapid PCR Covid and Flu A/B Stat Lab 07/01/21 00:27 Received Troponin I Q3H Lab 07/01/21 04:45 Ordered Troponin I Q3H Lab 07/01/21 07:45 Ordered - Radiology Data #1 Image(s): Chest, Shoulder, Elbow, Pelvis, Knee, Tib/Fib Image Reviewed: Yes I have reviewed radiologist's interpretation Preliminary Findings: No Fracture Seen - CT Data CT Scan: Head, C-Spine Time Received: 02:[address] Reviewed: Yes: I have viewed the radiologist's interpretation Preliminary Findings: No Fracture Seen Medical Decision Narrative: no fx seen on xray and remained stable in the ed with stable labs Fall HPI - General Chief Complaint: Fall Stated Complaint: fall Time Seen by Provider: 06/30/21 23:06 Mode of Arrival: EMS Source of Information: Patient, EMS, Medical Record Limitations: Altered Mental Status Description of Symptoms (Recalled from ER Triage Doc. by RN): Pt fell out of her wheelchair this evening. She hit her forehead and is c/o pain to head, R shoulder, R arm, R knee, and R hip. Shortly after falling pt vomited 1x. There is a bruise to pt's forehead and redness to R knee. Pt has baseline weakness, pain, and difficulty moving R arm per half-way. She is not on any blood thinners. - History of Present Illness HPI Narrative: fell at [facility] with head injury and rt upper ext injury - pt w/o specific c/o MD complaint: fall Onset (ago): hour(s)
[2021-07-01 00:06] VITALS: BP 142/73; PULSE 75; O2SAT 99
[2021-07-01 00:30] VITALS: BP 143/84; PULSE 78; O2SAT 99
[2021-07-01 01:01] VITALS: BP 117/66; PULSE 73; O2SAT 95
[2021-07-01 01:30] VITALS: BP 93/60; PULSE 76; O2SAT 94
[2021-07-01 01:52] LABS: Coronavirus 19, PCR Not Detected (NotDetected); Influenza A, PCR Not Detected (NotDetected); Influenza B, PCR Not Detected (NotDetected)
[2021-07-01 01:59] LABS: Basophils % 0.3 % (0.1-2.0); Eosinophils # 0.1 K/mm3 (0.0-0.4); Eosinophils % 1.4 % (0.1-12.0); Hematocrit 41.9 % (37.0-47.0); Lymphocytes # 1.2 K/mm3 (0.7-4.5); Mean Corpuscular HGB Conc 31.1 g/dL (31.8-35.4); Mean Corpuscular Hemoglobin 26.4 pg (27.0-31.2); Mean Corpuscular Volume 84.9 fl (81-99); Mean Platelet Volume 7.6 fl (7.4-10.4); Monocytes # 0.4 K/mm3 (0.1-1.0); Monocytes % 5.5 % (1.7-9.3); Neutrophils # 6.2 K/mm3 (1.8-7.8); Neutrophils % 77.9 % (37.0-80.0); Platelet Count 277 K/mm3 (142-424); Red Blood Count 4.93 M/mm3 (4.20-5.40); Red Cell Distribution Width 14.8 % (11.5-17.5)
[2021-07-01 02:09] LABS: Alanine Aminotransferase 32 U/L (12-78); Albumin Level 3.4 g/dl (3.5-5.0); Alkaline Phosphatase 108 U/L (38-126); Anion Gap 7.3 mEq/L (5-15); Aspartate Amino Transferase 33 U/L (14-36); Bilirubin,Total 0.4 mg/dl (0.2-1.3); Blood Urea Nitrogen 21 mg/dl (7-17); Carbon Dioxide 28 mmol/L (22.0-30.0); Chloride 107 mmol/L (98-107); Creatinine Clearance Estimated 59 mL/min (50-200); Estimated Glomerular Filt Rate 120 ml/min (>60); GFR (African American) 145 ML/MIN (>60); Globulin 3.5 g/dL (1.3-3.2); Glucose 123 mg/dl (74-100); Potassium 4.3 mmoL/L (3.5-5.1); Sodium 138 mmol/L (136-145); Total Protein,Serum 6.9 g/dl (6.3-8.2)
[2021-07-01 02:15] LABS: C-Reactive Protein 36.3 mg/L (0-4)
[2021-07-01 02:23] LABS: Erythrocyte Sedimentation Rate 25 mm/hr (0-30)
[2021-07-01 02:24] LABS: Troponin I < 0.01 ng/ml (0.00-0.034)
[2021-07-01 02:28] LABS: Procalcitonin 0.074 ng/mL (0.0-2.0)
--- NOTE | 2021-07-01 02:50 | PC.NURSE ---
obtained authorization from [facility] to call [facility] to see if they will transport pt back [facility]/t [facility] transfering 2x pt to [facility] .
--- NOTE | 2021-07-01 02:58 | PC.NURSE ---
[facility] returned call and they have accepted to transport pt back.
[2021-07-01 03:00] VITALS: BP 156/70; PULSE 69; O2SAT 98
--- NOTE | 2021-07-01 03:28 | PC.NURSE ---
Report called to nurse at [facility].
[2021-07-01 03:34] VITALS: BP 138/73; PULSE 68; RESP 18; TEMP 36.6; O2SAT 98
== END 2021-07-01 03:36 | disposition home or self-care (01) ==
PROVIDERS: Emergency Provider Emergency Medicine; PCP Family Medicine
DX: S00.03XA Contusion of scalp, initial encounter (principal); S40.011A Contusion of right shoulder, initial encounter; M25.551 Pain in right hip; W05.0XXA Fall from non-moving wheelchair, initial encounter; Y92.9 Unspecified place or not applicable; I10 Essential (primary) hypertension; E11.9 Type 2 diabetes mellitus without complications; E78.5 Hyperlipidemia, unspecified; J44.9 Chronic obstructive pulmonary disease, unspecified; F03.90 Unspecified dementia, unspecified severity, without behavioral disturbance, psychotic disturbance, mood disturbance, and anxiety; Z20.822 Contact with and (suspected) exposure to COVID-19
CPT/HCPCS: 70450; 71045; 72125; 73030; 73070; 73502; 73564; 73590; 80053; 83735; 84145; 84484; 85025; 85651; 86140; 99283; C9803; U0003; U0005

== ENCOUNTER 2021-09-02 07:16 | Emergency (ER) | payer MEDICARE, MEDICAID, SELFPAY ==
[2021-09-02] VITALS (8 sets, daily range): BP systolic 123–187; BP diastolic 73–86; PULSE 72–87; RESP 16–18; TEMP 36.6–36.7; O2SAT 94–98; BMI 29.2
--- NOTE | 2021-09-02 07:26 | CT_ITS ---
PROCEDURE INFORMATION: Exam: CT Abdomen And Pelvis With Contrast Exam date and time: 09/02/2021 7:26 AM Age: 76 years old Clinical indication: Abdominal pain; Generalized; Additional info: Abdominal pain// unable to answer questions on surgical history TECHNIQUE: Imaging protocol: Computed tomography of the abdomen and pelvis with contrast. Radiation optimization: All CT scans at this facility use at least one of these dose optimization techniques: automated exposure control; mA and/or kV adjustment per patient size (includes targeted exams where dose is matched to clinical indication); or iterative reconstruction. Contrast material: ISOVUE; Contrast volume: 75 ml; Contrast route: IV; COMPARISON: CT HIP RT WO CON 10/19/2020 8:59 PM FINDINGS: Diaphragm: Moderate hiatal hernia. Liver: Normal. No mass. Gallbladder and bile ducts: Cholecystectomy. Pancreas: Normal. No ductal dilation. Spleen: Normal. No splenomegaly. Adrenal glands: Normal. No mass. Kidneys and ureters: Normal. No hydronephrosis. Stomach and bowel: There appears to be some degree of rectal prolapse. No bowel obstruction. Appendix: No evidence of appendicitis. Intraperitoneal space: Unremarkable. No free air. No significant fluid collection. Vasculature: Moderate burden of atherosclerotic plaque in the abdominal aorta and branch vessels. No aneurysm. Lymph nodes: Unremarkable. No enlarged lymph nodes. Urinary bladder: Unremarkable as visualized. Reproductive: Simple appearing right ovarian cyst measures 3 cm. Bones/joints: Osteopenia. Severe right hip degenerative changes. Remote appearing wedging of the T12 vertebral body. Soft tissues: Unremarkable. IMPRESSION: No acute findings in the abdomen or pelvis.
[2021-09-02 07:45] LABS: Basophils % 0.1 % (0.1-2.0); Eosinophils # 0.1 K/mm3 (0.0-0.4); Eosinophils % 1.4 % (0.1-12.0); Hematocrit 42.9 % (37.0-47.0); Hemoglobin 13.9 g/dL (12.2-16.2); Lymphocytes # 1.1 K/mm3 (0.7-4.5); Lymphocytes % 10.8 % (10-50); Mean Corpuscular HGB Conc 32.4 g/dL (31.8-35.4); Mean Corpuscular Hemoglobin 26.5 pg (27.0-31.2); Mean Corpuscular Volume 81.9 fl (81-99); Mean Platelet Volume 7.4 fl (7.4-10.4); Monocytes # 0.3 K/mm3 (0.1-1.0); Monocytes % 3.4 % (1.7-9.3); Neutrophils # 8.4 K/mm3 (1.8-7.8); Neutrophils % 84.4 % (37.0-80.0); Platelet Count 342 K/mm3 (142-424); Red Blood Count 5.24 M/mm3 (4.20-5.40); Red Cell Distribution Width 14.6 % (11.5-17.5); White Blood Count 9.9 K/mm3 (4.8-10.8)
[2021-09-02 07:47] LABS: Coronavirus 19, PCR Not Detected (NotDetected); Influenza A, PCR Not Detected (NotDetected); Influenza B, PCR Not Detected (NotDetected)
[2021-09-02 07:49] LABS: Occult Blood,Gastric Fluid Positive (Negative)
[2021-09-02 07:57] LABS: Alanine Aminotransferase 21 U/L (12-78); Albumin/Globulin Ratio 1.2 (1.1-1.8); Alkaline Phosphatase 113 U/L (38-126); Anion Gap 12.2 mEq/L (5-15); Aspartate Amino Transferase 27 U/L (14-36); Bilirubin,Total 0.3 mg/dl (0.2-1.3); Blood Urea Nitrogen 20 mg/dl (7-17); Calcium 9.4 mg/dl (8.4-10.2); Carbon Dioxide 29 mmol/L (22.0-30.0); Chloride 104 mmol/L (98-107); Creatinine Clearance Estimated 54 mL/min (50-200); Estimated Glomerular Filt Rate 97 ml/min (>60); GFR (African American) 117 ML/MIN (>60); Globulin 3.3 g/dL (1.3-3.2); Glucose 104 mg/dl (74-100); Potassium 4.2 mmoL/L (3.5-5.1); Sodium 141 mmol/L (136-145); Total Protein,Serum 7.3 g/dl (6.3-8.2)
[2021-09-02 07:58] LABS: Lactic Acid 1.1 mmol/L (0.7-2.1)
--- NOTE | 2021-09-02 08:02 | HMH.EDGENADL ---
ED Disposition Clinical Impression: Hematemesis Qualifiers: Nausea presence: with nausea Qualified Code(s): K92.0 - Hematemesis Disposition: Home, Self-Care Condition on Discharge: Fair Instructions: DI for Acute Abdominal Pain Additional Instructions: CALL DR. MORGAN. SATURDAY morning just after 8:00 AM to set up follow-up appointment in office that day and likely EGD saturday or Saturday. Return to the emergency department for repeated episodes of bloody emesis, more than 2 episodes of dark bloody/black bowel movements. Or any new or concerning symptoms. Prescriptions: Pantoprazole Sodium 40 mg PO DAILY 30 Days #30 tab Transmission Status: Received by [facility] Ondansetron [Zofran 4mg ODT] 4 mg PO BIDP PRN #14 tab PRN Reason: Nausea Transmission Status: Received by [facility] Referrals: Satish Alvarado [Primary Care Provider] - Jose Guadalupe Morgan MD [Staff Physician] - - Critical Care Critical Care Time: No Attestation: On 09/02/21, the high probability of a clinically significant, sudden or life threatening deterioration of the following system(s) required my full and direct attention, intervention and personal management. The time I documented below is in addition to time spent performing reported procedures but includes the following listed in this critical care notation. Medical Decision Making - Medical Records Medical records reviewed: Yes: I reviewed the patient's medical records. - Timothy Inquiry Pt receiving controlled substance: No Vital Signs: 09/02/21 07:15 Temperature 98.1 F Temperature Source Oral Pulse Rate [Right Radial] 80 Respiratory Rate 16 Blood Pressure [Right Arm] 187/81 H Blood Pressure Mean [Right Arm] 116 Blood Pressure Source [Right Arm] Automatic Cuff Blood Pressure Position [Right Arm] Supine 02 Sat by Pulse Oximetry 95 Oxygen Delivery Method Room Air - Lab Data Lab results reviewed: Yes: I reviewed the patient's lab results. Lab Results 09/02/21 07:21: WBC 9.9, RBC 5.24, Hgb 13.9, Hct 42.9, MCV 81.9, MCH 26.5 L, MCHC 32.4, RDW 14.6, Plt Count 342, MPV 7.4, Neut % (Auto) 84.4 H, Lymph % (Auto) 10.8, Crisp % (Auto) 3.4, Eos % (Auto) 1.4, Baso % (Auto) 0.1, Neut # (Auto) 8.4 H, Lymph # (Auto) 1.1, Crisp # (Auto) 0.3, Eos # (Auto) 0.1, Baso # (Auto) 0.0, ESR 59 H 09/02/21 07:21: Sodium 141, Potassium 4.2, Chloride 104, Carbon Dioxide 29, Anion Gap 12.2, BUN 20 H, Creatinine 0.60, Estimated Creat Clear 54, Estimated GFR 97, Est GFR ( Amer) 117, Glucose 104 H, Calcium 9.4, Total Bilirubin 0.3, AST 27, ALT 21, Alkaline Phosphatase 113, C-Reactive Protein 5.2 H, Total Protein 7.3, Albumin 4.0, Globulin 3.3 H, Albumin/Globulin Ratio 1.2, Procalcitonin 0.057 09/02/21 07:21: Lactate 1.1 09/02/21 07:38: Gastric Occult Blood Positive 09/02/21 07:38: SARS-CoV-2 (PCR) Not detected, Influenza A Untype (PCR) Not detected, Influenza Type B (PCR) Not detected 09/02/21 08:50: Blood Type O Positive, Antibody Screen Negative Result diagrams: 09/02/21 07:21 09/02/21 07:21 Orders (Tests/Meds): ED MEDICATIONS Generic Name Dose Route Start Last Admin Trade Name Freq PRN Reason Stop Dose Admin Sodium Chloride 10 ml 09/02/21 07:26 Sodium Chloride 0.9% 10ml Vial IV 10/02/21 07:25 NEEDED PRN dilute protonix Discontinued Medications Generic Name Dose Route Start Last Admin Trade Name Freq PRN Reason Stop Dose Admin Lactated Ringer's 1,000 mls @ 999 mls/hr 09/02/21 07:30 09/02/21 07:33 Lactated Ringer's 1000 Ml Bag IV 09/02/21 08:30 999 mls/hr .Q1H1M CRISSY Administration Iopamidol 75 ml 09/02/21 08:27 09/02/21 08:28 Iopamidol-370 (76%);100ml Bottle IV 09/02/21 08:28 75 ml ONCE ONE Administration Ondansetron HCl 4 mg 09/02/21 07:26 09/02/21 07:32 Ondansetron 4mg/2ml Vial IV 09/02/21 07:27 4 mg ONCE ONE Administration Pantoprazole Sodium 40 mg 09/02/21 07:26 09/02/21 07:32 Pantopra
[2021-09-02 08:03] LABS: C-Reactive Protein 5.2 mg/L (0-4)
[2021-09-02 08:16] LABS: Procalcitonin 0.057 ng/mL (0.0-2.0)
[2021-09-02 08:33] LABS: Erythrocyte Sedimentation Rate 59 mm/hr (0-30)
--- NOTE | 2021-09-02 11:17 | PC.NURSE ---
REPORT CALLED TO FARZAD BETTENCOURT
== END 2021-09-02 12:20 | disposition home or self-care (01) ==
PROVIDERS: Emergency Medicine; Emergency Provider Emergency Medicine; PCP Family Medicine
DX: K92.0 Hematemesis (principal); F03.90 Unspecified dementia, unspecified severity, without behavioral disturbance, psychotic disturbance, mood disturbance, and anxiety; R10.31 Right lower quadrant pain; Z87.891 Personal history of nicotine dependence; Z20.822 Contact with and (suspected) exposure to COVID-19
CPT/HCPCS: 74177; 80053; 82272; 83605; 84145; 85025; 85651; 86140; 86850; 87040; 96365; 96375; 99283; C9803; G0328; J2405; Q9967; U0003; U0005

== ENCOUNTER 2021-09-28 19:45 | Emergency (ER) | payer MEDICARE, MEDICAID, SELFPAY ==
[2021-09-28 19:20] VITALS: BP 140/65; PULSE 76; RESP 20; TEMP 36.7; O2SAT 95; BMI 26.6
[2021-09-28 19:29] VITALS: BMI 30.9
--- NOTE | 2021-09-28 19:32 | HMH.EDGENADL ---
ED Disposition Condition on Discharge: Good - Critical Care Critical Care Time: No <Keanu Villatoro - Last Filed: 09/28/21 20:22> <Satish Weiner - Last Filed: 09/28/21 22:49> Clinical Impression: Abdominal pain Qualifiers: Abdominal location: generalized Qualified Code(s): R10.84 - Generalized abdominal pain UTI (urinary tract infection) Qualifiers: Urinary tract infection type: site unspecified Hematuria presence: without hematuria Qualified Code(s): N39.0 - Urinary tract infection, site not specified Disposition: Home, Self-Care Instructions: DI for Acute Abdominal Pain Additional Instructions: fluids and see pcp and monitor urine culture Prescriptions: Cefdinir [Omnicef 300mg Capsule] 300 mg PO BID #14 cap Prescription Printed Referrals: Provider,Referral, MD [Primary Care Provider] - Attestation: On 09/28/21, the high probability of a clinically significant, sudden or life threatening deterioration of the following system(s) required my full and direct attention, intervention and personal management. The time I documented below is in addition to time spent performing reported procedures but includes the following listed in this critical care notation. Medical Decision Making - Timothy Inquiry Pt receiving controlled substance: No <ShaunaKeanu ann - Last Filed: 09/28/21 20:22> - Lab Data Lab results reviewed: Yes: I reviewed the patient's lab results. Result diagrams: 09/28/21 20:15 09/28/21 20:15 - Radiology Data #1 Image(s): Chest Image Reviewed: Yes I have reviewed radiologist's interpretation Preliminary Findings: Normal/NAD - CT Data CT Scan: Abdomen, Pelvis Time Received: 22:[address] Reviewed: Yes: I have viewed the radiologist's interpretation Preliminary Findings: Abnormal (see report ) - Physician Consults Physician Consulted: germaine Reason -: Pt condition <Satish Weiner - Last Filed: 09/28/21 22:49> Vital Signs: 09/28/21 19:20 Temperature 98.1 F Temperature Source Oral Pulse Rate [Apical] 76 Respiratory Rate 20 Blood Pressure [Right Arm] 140/65 Blood Pressure Mean [Right Arm] 90 Blood Pressure Source [Right Arm] Automatic Cuff Blood Pressure Position [Right Arm] Sitting 02 Sat by Pulse Oximetry 95 Oxygen Delivery Method Room Air - Lab Data Lab Results 09/28/21 20:15: WBC 3.7 L, RBC 5.00, Hgb 13.1, Hct 42.9, MCV 85.8, MCH 26.2 L, MCHC 30.5 L, RDW 15.0, Plt Count 217, MPV 7.7, Neut % (Auto) 66.6, Lymph % (Auto) 22.9, [place]undy % (Auto) 6.4, Eos % (Auto) 2.8, Baso % (Auto) 1.3, Neut # (Auto) 2.5, Lymph # (Auto) 0.9, [place]undy # (Auto) 0.2, Eos # (Auto) 0.1, Baso # (Auto) 0.1 09/28/21 20:15: Sodium 141, Potassium 4.1, Chloride 105, Carbon Dioxide 31 H, Anion Gap 9.1, BUN 20 H, Creatinine 0.60, Estimated Creat Clear 59, Estimated GFR 97, Est GFR ( Amer) 117, Glucose 132 H, Calcium 8.9, Total Bilirubin 0.2, AST 36, ALT 25, Alkaline Phosphatase 89, Total Protein 6.5, Albumin 3.7, Globulin 2.8, Albumin/Globulin Ratio 1.3 09/28/21 20:15: C-Reactive Protein 2.5, Lipase 119 09/28/21 20:15: ESR 36 H 09/28/21 20:15: Amylase 81, Procalcitonin 0.050 09/28/21 20:15: Lactate 1.1 09/28/21 20:30: Urine Color Yellow, Urine Appearance Clear, Urine pH 7.5, Ur Specific [place] 1.015, Urine Protein Negative, Urine Glucose (UA) Negative, Urine Ketones Negative, Urine Blood Negative, Urine Nitrate Positive, Urine Bilirubin Negative, Urine Urobilinogen 1.0, Ur Leukocyte Esterase Trace, Urine RBC None, Urine WBC 3-5, Ur Squamous Epith Cells 3-5, Urine Bacteria 2+ Orders (Tests/Meds): ED MEDICATIONS Generic Name Dose Route Start Last Admin Trade Name Freq PRN Reason Stop Dose Admin Ceftriaxone Sodium 1 gm/ 50 mls @ 100 mls/hr 09/28/21 22:30 09/28/21 22:25 Sodium Chloride IV 10/12/21 22:29 100 mls/hr Q24H CRISSY Administration Discontinued Medications Generic Name Dose Route Start Last Admin Trade Name Freq PRN Reason Stop Dose Admin Sodium Chloride 1
--- NOTE | 2021-09-28 20:19 | CT_ITS ---
PROCEDURE INFORMATION: Exam: CT Abdomen And Pelvis With Contrast Exam date and time: 09/28/2021 8:19 PM Age: 76 years old Clinical indication: Abdominal pain; Additional info: Abd pain TECHNIQUE: Imaging protocol: Computed tomography of the abdomen and pelvis with contrast. Radiation optimization: All CT scans at this facility use at least one of these dose optimization techniques: automated exposure control; mA and/or kV adjustment per patient size (includes targeted exams where dose is matched to clinical indication); or iterative reconstruction. Contrast material: ISOVUE; Contrast volume: 75 ml; Contrast route: IV; COMPARISON: CT ABDOMEN PELVIS W CON 09/02/2021 8:15 AM FINDINGS: Lungs: In the lung bases there is atelectasis. Liver: Normal. No mass. Gallbladder and bile ducts: Cholecystectomy. Pancreas: Normal. No ductal dilation. Spleen: Normal. No splenomegaly. Adrenal glands: Normal. No mass. Kidneys and ureters: Normal. No hydronephrosis. Stomach and bowel: Unremarkable. No obstruction. No mucosal thickening. Appendix: Normal appendix. Intraperitoneal space: Unremarkable. No free air. No significant fluid collection. Vasculature: Unremarkable. No abdominal aortic aneurysm. Lymph nodes: Unremarkable. No enlarged lymph nodes. Urinary bladder: Luevano catheter in the urinary bladder which shows wall thickening enhancement which could be due to lack of distention or cystitis. Reproductive: 3 cm right ovarian cyst. Uterine fibroids. Bones/joints: Unremarkable. No acute fracture. Soft tissues: Unremarkable. IMPRESSION: 1. Stable 3 cm simple cyst in the right ovary. Ultrasound can be obtained to further evaluate on a nonemergent/outpatient basis. 2. Cystitis cannot be excluded.Otherwise no acute findings in the abdomen pelvis
[2021-09-28 20:33] LABS: Basophils # 0.1 K/mm3 (0-0.2); Basophils % 1.3 % (0.1-2.0); Eosinophils # 0.1 K/mm3 (0.0-0.4); Eosinophils % 2.8 % (0.1-12.0); Hematocrit 42.9 % (37.0-47.0); Hemoglobin 13.1 g/dL (12.2-16.2); Lymphocytes # 0.9 K/mm3 (0.7-4.5); Lymphocytes % 22.9 % (10-50); Mean Corpuscular HGB Conc 30.5 g/dL (31.8-35.4); Mean Corpuscular Hemoglobin 26.2 pg (27.0-31.2); Mean Corpuscular Volume 85.8 fl (81-99); Mean Platelet Volume 7.7 fl (7.4-10.4); Monocytes # 0.2 K/mm3 (0.1-1.0); Monocytes % 6.4 % (1.7-9.3); Neutrophils # 2.5 K/mm3 (1.8-7.8); Neutrophils % 66.6 % (37.0-80.0); Platelet Count 217 K/mm3 (142-424); White Blood Count 3.7 K/mm3 (4.8-10.8)
[2021-09-28 20:38] LABS: Microscopic, Urine URINE MICROSCOPIC (MICROSCOPIC)
[2021-09-28 20:41] LABS: Lipase 119 U/L (23-300)
[2021-09-28 20:42] LABS: Alanine Aminotransferase 25 U/L (12-78); Albumin Level 3.7 g/dl (3.5-5.0); Albumin/Globulin Ratio 1.3 (1.1-1.8); Alkaline Phosphatase 89 U/L (38-126); Amylase 81 U/L (30-110); Anion Gap 9.1 mEq/L (5-15); Aspartate Amino Transferase 36 U/L (14-36); Bilirubin,Total 0.2 mg/dl (0.2-1.3); Blood Urea Nitrogen 20 mg/dl (7-17); Calcium 8.9 mg/dl (8.4-10.2); Carbon Dioxide 31 mmol/L (22.0-30.0); Chloride 105 mmol/L (98-107); Creatinine Clearance Estimated 59 mL/min (50-200); Estimated Glomerular Filt Rate 97 ml/min (>60); GFR (African American) 117 ML/MIN (>60); Globulin 2.8 g/dL (1.3-3.2); Glucose 132 mg/dl (74-100); Potassium 4.1 mmoL/L (3.5-5.1); Sodium 141 mmol/L (136-145); Total Protein,Serum 6.5 g/dl (6.3-8.2)
[2021-09-28 20:47] LABS: C-Reactive Protein 2.5 mg/L (0-4)
[2021-09-28 20:59] LABS: Appearance,Urine CLEAR (Clear); Bilirubin,Urine Negative (Negative); Blood, Urine Negative (Negative); Color,Urine YELLOW (Yellow); Glucose,Urine (UA) Negative (Negative); Ketones,Urine Negative (Negative); Leukocyte Esterase,Urine TRACE (Negative); Nitrate,Urine POSITIVE (Negative); PH,Urine 7.5 (5.0-8.5); Protein,Urine Negative (Negative); Specific Gravity, Urine 1.015 (1.005-1.030)
[2021-09-28 21:06] LABS: Erythrocyte Sedimentation Rate 36 mm/hr (0-30)
[2021-09-28 21:16] LABS: Bacteria,Urine 2+ /lpf
--- NOTE | 2021-09-28 21:32 | XR_ITS ---
PROCEDURE INFORMATION: Exam: XR Chest Exam date and time: 09/28/2021 9:32 PM Age: 76 years old Clinical indication: Condition or disease; Lung condition and disease; Other: Covid TECHNIQUE: Imaging protocol: XR of the chest. Views: 1 view. COMPARISON: CR XR CHEST AP 06/30/2021 11:16 PM FINDINGS: Lungs: Granulomatous change. No consolidation. Coarse interstitial lung markings likely chronic. Mild atelectasis in the left lung base. Pleural spaces: Unremarkable. No pleural effusion. No pneumothorax. Heart/Mediastinum: Cardiomegaly. Bones/joints: Unremarkable. IMPRESSION: No acute findings.
[2021-09-28 21:38] LABS: Influenza A, PCR Not Detected (NotDetected); Influenza B, PCR Not Detected (NotDetected)
[2021-09-28 21:46] LABS: Lactic Acid 1.1 mmol/L (0.7-2.1)
--- NOTE | 2021-09-28 22:36 | PC.NURSE ---
on the phone Dr. Swartz
[2021-09-28 22:49] VITALS: BP 154/67; PULSE 75; RESP 20; TEMP 36.7; O2SAT 96
[2021-09-28 22:51] LABS: Coronavirus 19, PCR Detected (NotDetected)
== END 2021-09-28 23:51 | disposition home or self-care (01) ==
PROVIDERS: Emergency Medicine; Emergency Provider Emergency Medicine
DX: U07.1 COVID-19 (principal); N30.00 Acute cystitis without hematuria; R10.84 Generalized abdominal pain; F03.90 Unspecified dementia, unspecified severity, without behavioral disturbance, psychotic disturbance, mood disturbance, and anxiety; Z87.891 Personal history of nicotine dependence
CPT/HCPCS: 71045; 74177; 80053; 81001; 82150; 83605; 83690; 84145; 85025; 85651; 86140; 87086; 96365; 96367; 96375; 99285; C9803; J0696; J2405; Q9967; U0003; U0005

== ENCOUNTER 2022-08-09 07:03 | Emergency (ER) | payer MEDICARE, MEDICAID, SELFPAY ==
[2022-08-09] VITALS (9 sets, daily range): BP systolic 163–189; BP diastolic 78–93; PULSE 61–69; RESP 18–20; TEMP 36.6; O2SAT 95–98; BMI 31.8
--- NOTE | 2022-08-09 07:11 | XR_ITS ---
PROCEDURE INFORMATION: Exam: XR Chest Exam date and time: 08/09/2022 8:02 AM Age: 77 years old Clinical indication: Injury or trauma; Fall; Blunt trauma (contusions or hematomas) TECHNIQUE: Imaging protocol: Radiologic exam of the chest. Views: 1 view. COMPARISON: CR XR CHEST PORTABLE 09/28/2021 9:36 PM FINDINGS: Lungs: No focal airspace disease. Pleural spaces: Unremarkable. No pleural effusion. No pneumothorax. Heart/Mediastinum: Cardiomediastinal silhouette is within normal limits. Bones/joints: Unremarkable. IMPRESSION: No acute cardiopulmonary abnormality.
--- NOTE | 2022-08-09 07:11 | CT_ITS ---
PROCEDURE INFORMATION: Exam: CT Cervical Spine Without Contrast Exam date and time: 08/09/2022 7:57 AM Age: 77 years old Clinical indication: Injury or trauma; Fall; Blunt trauma TECHNIQUE: Imaging protocol: Computed tomography of the cervical spine without contrast. Radiation optimization: All CT scans at this facility use at least one of these dose optimization techniques: automated exposure control; mA and/or kV adjustment per patient size (includes targeted exams where dose is matched to clinical indication); or iterative reconstruction. COMPARISON: CT CERVICAL SPINE WO CON 06/30/2021 11:05 PM FINDINGS: Bones/joints: There is 2 mm retrolisthesis of C5 upon C6. There is ankylosis of the right C4-C5 facet joint. There is loss of disc space height throughout, most focally at C5-C6, findings related to degenerative disc disease. There are degenerative changes of the anterior C1-C2 articulation without erosive change. Lungs: Lung apices are normal. Vascular: There is atherosclerotic disease of the aortic arch, which is not fully included on the exam. There is also focal atherosclerotic disease at the origin of the carotid arteries. Soft tissues: Unremarkable. IMPRESSION: 1. There are degenerative changes throughout. 2. There is no acute cervical spine fracture.
--- NOTE | 2022-08-09 07:11 | XR_ITS ---
PROCEDURE INFORMATION: Exam: XR Pelvis Exam date and time: 08/09/2022 7:59 AM Age: 77 years old Clinical indication: Injury or trauma; Fall; Blunt trauma (contusions or hematomas); Bilateral; Pelvic region TECHNIQUE: Imaging protocol: Radiologic exam of the pelvis. Views: 1 or 2 view. COMPARISON: CT ABDOMEN PELVIS W CON 09/28/2021 8:56 PM FINDINGS: Bones/joints: No acute fracture or malalignment. Osteopenia. Severe degenerative changes of the right hip. Mild degenerative changes of the left hip. Soft tissues: Unremarkable. IMPRESSION: No acute fracture or malalignment.
--- NOTE | 2022-08-09 07:11 | CT_ITS ---
PROCEDURE INFORMATION: Exam: CT Lumbar Spine Without Contrast Exam date and time: 08/09/2022 8:02 AM Age: 77 years old Clinical indication: Injury or trauma; Fall; Blunt trauma (contusions or hematomas) TECHNIQUE: Imaging protocol: Computed tomography of the lumbar spine without contrast. Radiation optimization: All CT scans at this facility use at least one of these dose optimization techniques: automated exposure control; mA and/or kV adjustment per patient size (includes targeted exams where dose is matched to clinical indication); or iterative reconstruction. COMPARISON: CT LUMBAR SPINE WO CON 10/19/2020 8:55 PM FINDINGS: Bones/joints: Age-indeterminate compression fracture involving the superior endplate of L4 with up to 10% height loss, new from 09/28/2021. Similar calcification in the L1-L2 disc space. Osteopenia. No evidence of high-grade spinal canal or neural foraminal stenosis. Reproductive: Right ovarian cyst measures up to 3.4 cm. Soft tissues: Unremarkable. IMPRESSION: Age-indeterminate compression fracture involving the superior endplate of L4 with up to 10% height loss, new from 09/28/2021.
--- NOTE | 2022-08-09 07:11 | CT_ITS ---
PROCEDURE INFORMATION: Exam: CT Head Without Contrast Exam date and time: 08/09/2022 7:57 AM Age: 77 years old Clinical indication: Injury or trauma; Fall; Blunt trauma (contusions or hematomas) TECHNIQUE: Imaging protocol: Computed tomography of the head without contrast. Radiation optimization: All CT scans at this facility use at least one of these dose optimization techniques: automated exposure control; mA and/or kV adjustment per patient size (includes targeted exams where dose is matched to clinical indication); or iterative reconstruction. COMPARISON: CT HEAD/BRAIN WO CON 06/30/2021 11:02 PM FINDINGS: Brain: The brain demonstrates diffuse volume loss. There is white matter hypodensity most consistent with chronic small vessel ischemic change. Cerebral ventricles: The ventricles and CSF spaces are proportionately enlarged. Paranasal sinuses: Visualized sinuses are unremarkable. No fluid levels. Mastoid air cells: Visualized mastoid air cells are well aerated. Orbital cavities: There are postoperative changes from prior cataract surgery. Vascular: There is atherosclerotic disease involving the vertebral basilar system and cavernous ICAs. Bones/joints: There is no fracture. Soft tissues: There is a 7 mm soft tissue density in the left parietal region most consistent with a sebaceous cyst. Correlation with physical exam recommended (series 3, image 54). IMPRESSION: 1. Atrophy and the sequela of prior small vessel ischemia. 2. There is no acute intracranial abnormality.
--- NOTE | 2022-08-09 07:11 | CT_ITS ---
PROCEDURE INFORMATION: Exam: CT Thoracic Spine Without Contrast Exam date and time: 08/09/2022 8:00 AM Age: 77 years old Clinical indication: Injury or trauma; Fall; Blunt trauma (contusions or hematomas) TECHNIQUE: Imaging protocol: Computed tomography of the thoracic spine without contrast. Radiation optimization: All CT scans at this facility use at least one of these dose optimization techniques: automated exposure control; mA and/or kV adjustment per patient size (includes targeted exams where dose is matched to clinical indication); or iterative reconstruction. COMPARISON: CT THORACIC SPINE WO CON 10/19/2020 7:30 PM FINDINGS: Bones/joints: No acute fracture or malalignment. Remote compression fractures involving the superior endplates of T5, T7 and T12. Osteopenia. No evidence of high-grade spinal canal or neural foraminal stenosis. Soft tissues: Unremarkable. IMPRESSION: No acute findings.
[2022-08-09 07:42] LABS: Basophils % 0.5 % (0.1-2.0); Eosinophils # 0.2 K/mm3 (0.0-0.4); Eosinophils % 2.2 % (0.1-12.0); Hematocrit 44.4 % (37.0-47.0); Hemoglobin 14.3 g/dL (12.2-16.2); Lymphocytes # 1.1 K/mm3 (0.7-4.5); Lymphocytes % 14.4 % (10-50); Mean Corpuscular HGB Conc 32.2 g/dL (31.8-35.4); Mean Corpuscular Hemoglobin 27.6 pg (27.0-31.2); Mean Corpuscular Volume 85.8 fl (81-99); Mean Platelet Volume 7.9 fl (7.4-10.4); Monocytes # 0.3 K/mm3 (0.1-1.0); Monocytes % 4.1 % (1.7-9.3); Neutrophils % 78.8 % (37.0-80.0); Platelet Count 276 K/mm3 (142-424); Red Blood Count 5.17 M/mm3 (4.20-5.40); Red Cell Distribution Width 14.4 % (11.5-17.5); White Blood Count 7.6 K/mm3 (4.8-10.8)
[2022-08-09 07:49] LABS: Alanine Aminotransferase 23 U/L (12-78); Albumin Level 4.1 g/dl (3.5-5.0); Albumin/Globulin Ratio 1.3 (1.1-1.8); Alkaline Phosphatase 128 U/L (38-126); Anion Gap 18.7 mEq/L (5-15); Aspartate Amino Transferase 30 U/L (14-36); Bilirubin,Total 0.3 mg/dl (0.2-1.3); Blood Urea Nitrogen 13 mg/dl (7-17); Calcium 9.6 mg/dl (8.4-10.2); Carbon Dioxide 26 mmol/L (22.0-30.0); Chloride 101 mmol/L (98-107); Creatinine Clearance Estimated 60 mL/min (50-200); Estimated Glomerular Filt Rate 81 ml/min (>60); GFR (African American) 98 ML/MIN (>60); Globulin 3.1 g/dL (1.3-3.2); Glucose 101 mg/dl (74-100); Potassium 3.7 mmoL/L (3.5-5.1); Sodium 142 mmol/L (136-145); Total Protein,Serum 7.2 g/dl (6.3-8.2)
--- NOTE | 2022-08-09 08:18 | HMH.EDGENADL ---
Discharge Plan Disposition Patient Disposition: Home, Self-Care Condition: Good Prescriptions Prescriptions: No Action ondansetron 4 MG tablet,disintegrating 4 mg PO BIDP PRN (Reason: Nausea) Qty: 14 0RF loratadine 10 MG capsule 10 mg PO DAILY pantoprazole 40 MG tablet,delayed release (DR/EC) 40 mg PO DAILY albuterol sulfate 2.5 MG/NEB solution for nebulization 2.5 mg IH Q6HP PRN (Reason: SOA) nystatin 30 GM bottle 1 applicatio TP BID PRN (Reason: BREAST EXCORIATION) cefdinir 300 MG capsule 300 mg PO BID acetaminophen 500 MG tablet 1,000 mg PO Q6 lactulose 20 GM/30 ML solution 30 gm PO DAILYP PRN (Reason: Constipation) Referrals Follow up/Referrals: Provider,Referral, MD [Primary Care Provider] - See instructions Activity Restrictions/Add. Instructions Additional Instructions/Restrictions: [place] as needed for pain. Do not take acetaminophen while taking [place]. Follow-up with primary care provider for further care. Clinical Impressions Clinical Impression: Closed compression fracture of lumbar vertebra, Accidental fall from bed Instructions Patient Instructions: Vertebral Compression Fracture, DI for Vertebral Fracture, How to Prevent Falls Discharge ED Provider: Ubaldo Boss General Adult HPI General Chief complaint: Fall Stated complaint: Fall Time Seen by Provider: 08/09/22 08:18 Mode of Arrival: EMS Source of Information: Patient and EMS Limitations: No Limitations Description of Symptoms (Recalled from ER Triage Doc. by RN): c/o all over pain with more in the lower back after [facility]. Per staff she was more confused when they found her and she was unsure the event that caused the fall. Per ems pt was trying to get to her wheelchair and fell. pt alert at this time History of Present Illness HPI narrative: Brought in by ambulance from [facility]. senior care note indicates fall out of bed, pain of entire body. Patient states to me that she was trying to get out of bed to get into her wheelchair and fell. She complains of pain in her lower back. She has some pain in her right groin and hip area but states that this is chronic. She thinks she might of hit her head on a bed rail or nightstand. Denies loss of consciousness. Her neck hurts a little bit. Denies injury to upper extremities. senior care records indicate a history of dementia and frequent falls. Related Data Home Medications Medication Instructions Recorded Confirmed loratadine 10 mg capsule 10 mg PO DAILY allergies 09/19/21 10/10/21 pantoprazole 40 mg tablet,delayed 40 mg PO DAILY Reflux/Acid reflux 09/19/21 10/10/21 release acetaminophen 500 mg tablet 1,000 mg PO Q6 Pain 09/28/21 10/10/21 lactulose 20 gram/30 mL oral 30 gm PO DAILYP PRN Constipation 09/28/21 10/10/21 solution albuterol sulfate 2.5 mg/3 mL 2.5 mg IH Q6HP PRN SOA 10/10/21 10/10/21 (0.083 %) solution for nebulization cefdinir 300 mg capsule 300 mg PO BID UTI 10/10/21 10/10/21 nystatin 100,000 unit/gram topical 1 applicatio TP BID PRN BREAST 10/10/21 10/10/21 powder EXCORIATION Previous Rx's Medication Instructions Recorded ondansetron 4 mg disintegrating 4 mg PO BIDP PRN Nausea #14 tabs 09/02/21 tablet Allergies Allergy/AdvReac Type Severity Reaction Status Date / Time No Known Allergies Allergy Verified 10/10/21 14:41 PFSH PFSH Social History Smoking Status: Unknown if ever smoked alcohol intake: never current occupational status: disabled Travel in the last 8 weeks: None household members: children housing: [facility] ROS Obtained: Yes Systems reviewed as appropriate & no additional complaints except as documented Constitutional Constitutional: Denies fever(s), Denies headache(s) and Denies weakness ENT Ears, Nose, Mouth, and Throat: Denies headache(s), Denies nasal discharge, Reports neck pain and Jesus Alberto
--- NOTE | 2022-08-09 10:31 | PC.NURSE ---
Report called Binta mahan [facility]
== END 2022-08-09 11:01 | disposition home or self-care (01) ==
PROVIDERS: Emergency Medicine; Emergency Provider Emergency Medicine
DX: M48.56XA Collapsed vertebra, not elsewhere classified, lumbar region, initial encounter for fracture (principal); R06.02 Shortness of breath; I10 Essential (primary) hypertension; K59.00 Constipation, unspecified; S20.119A Abrasion of breast, unspecified breast, initial encounter; M54.2 Cervicalgia; G89.29 Other chronic pain; M16.9 Osteoarthritis of hip, unspecified; N83.209 Unspecified ovarian cyst, unspecified side; M85.80 Other specified disorders of bone density and structure, unspecified site; F03.90 Unspecified dementia, unspecified severity, without behavioral disturbance, psychotic disturbance, mood disturbance, and anxiety; Z79.1 Long term (current) use of non-steroidal anti-inflammatories (NSAID); Z79.51 Long term (current) use of inhaled steroids; Z79.899 Other long term (current) drug therapy; Z99.3 Dependence on wheelchair; W06.XXXA Fall from bed, initial encounter
CPT/HCPCS: 70450; 71045; 72125; 72128; 72131; 72170; 80053; 85025; 99285

== ENCOUNTER 2022-10-10 00:28 | Observation (INO) | payer MEDICARE, MEDICAID, SELFPAY ==
[2022-10-10] VITALS (10 sets, daily range): BP systolic 129–166; BP diastolic 60–79; PULSE 74–83; RESP 16–18; TEMP 36.6–37.1; O2SAT 92–99; BMI 32.0; BMI 25.4
--- NOTE | 2022-10-10 00:45 | PC.NURSE ---
ER speaking with pt at this time
--- NOTE | 2022-10-10 00:54 | XR_ITS ---
PROCEDURE INFORMATION: Exam: XR Chest Exam date and time: 10/10/2022 1:25 AM Age: 77 years old Clinical indication: Screening exam; Other screening; Additional info: Possible blood clot TECHNIQUE: Imaging protocol: Radiologic exam of the chest. Views: 1 view. COMPARISON: CR XR CHEST PORTABLE 08/09/2022 8:02 AM FINDINGS: Lungs: Unremarkable. No consolidation. Pleural spaces: There is stable persistent opacification of the lateral left costophrenic angle. Heart/Mediastinum: Unremarkable. No cardiomegaly. Vasculature: Unremarkable. Bones/joints: Unremarkable. IMPRESSION: There is no acute cardiopulmonary finding. Stable peripheral density at the left lung base consistent with pleural scarring.
--- NOTE | 2022-10-10 00:55 | HMH.EDEXTP ---
Discharge Plan Disposition Patient Disposition: Admitted as Observation Chief Complaint: Extremity Problem,Nontraumatic Prescriptions Prescriptions: No Action ondansetron 4 MG tablet,disintegrating 4 mg PO BIDP PRN (Reason: Nausea) Qty: 14 0RF loratadine 10 MG capsule 10 mg PO DAILY pantoprazole 40 MG tablet,delayed release (DR/EC) 40 mg PO DAILY albuterol sulfate 2.5 MG/NEB solution for nebulization 2.5 mg IH Q6HP PRN (Reason: SOA) nystatin 30 GM bottle 1 applicatio TP BID PRN (Reason: BREAST EXCORIATION) acetaminophen 500 MG tablet 1,000 mg PO Q6 lactulose 20 GM/30 ML solution 30 gm PO DAILYP PRN (Reason: Constipation) trazodone 50 mg tablet 50 mg PO DAILY Discharge ED Provider: Satish Weiner Extremity Problem HPI General Chief complaint: Extremity Problem,Nontraumatic Stated complaint: redness/edema to L upper thigh, r/o clot Time Seen by Provider: 10/10/22 00:55 Mode of Arrival: EMS Source of Information: Patient, EMS and Medical Record Limitations: baseline mild confusion Description of Symptoms (Recalled from ER Triage Doc. by RN): Patient arrived via ems. C/O left upper extremity redness and pain. Pt states she has had this issue for the prior week. Per senior care report, they noticed the redness and pain in her left upper leg on 10/08/2021 during the day, they did not call the families pcp until tonight. [facility] was concerned that she had 3+ edema on left leg and were worried she may have a blood clot. Upon arrival bilateral extremeties have edema. History of Present Illness HPI Narrative: pt is poor historian but sent from [facility] with reddness swelling lt thigh Complaint: extremity pain and extremity swelling Onset (ago): day(s) Consistency: constant Location: left and lower extremity Exacerbating factors: palpation Related Data Home Medications Medication Instructions Recorded Confirmed loratadine 10 mg capsule 10 mg PO DAILY allergies 09/19/21 10/10/22 pantoprazole 40 mg tablet,delayed 40 mg PO DAILY Reflux/Acid reflux 09/19/21 10/10/22 release acetaminophen 500 mg tablet 1,000 mg PO Q6 Pain 09/28/21 10/10/22 lactulose 20 gram/30 mL oral 30 gm PO DAILYP PRN Constipation 09/28/21 10/10/22 solution albuterol sulfate 2.5 mg/3 mL 2.5 mg IH Q6HP PRN SOA 10/10/21 10/10/22 (0.083 %) solution for nebulization nystatin 100,000 unit/gram topical 1 applicatio TP BID PRN BREAST 10/10/21 10/10/22 powder EXCORIATION trazodone 50 mg tablet 50 mg PO DAILY Insomnia 10/10/22 10/10/22 Previous Rx's Medication Instructions Recorded ondansetron 4 mg disintegrating 4 mg PO BIDP PRN Nausea #14 tabs 09/02/21 tablet Allergies Allergy/AdvReac Type Severity Reaction Status Date / Time No Known Allergies Allergy Verified 10/10/21 14:41 [facility] Disclaimer: The information contained in this section may have been updated after the patient was seen, as this information can be updated by other users. Social History Smoking Status: Former smoker alcohol intake: never current occupational status: disabled Travel in the last 8 weeks: None household members: children housing: senior care ROS Obtained: Yes unobtainable due to mental status Physical Exam General General appearance: alert Head Head exam: normocephalic Eye Eye exam: Present PERRL and EOMI ENT ENT exam: Present mucous membranes moist Neck Neck exam: Present trachea midline Respiratory Respiratory exam: Present normal lung sounds bilaterally; Absent respiratory distress Cardiovascular Cardiovascular exam: Present regular rate and systolic murmur Abdominal Exam Abdominal exam: Present soft Expanded Lower Extremity Exam Left: Hip/Pelvis exam: Present tenderness and swelling Neurological Exam Neurological exam: Present alert and CN II-XII intact Skin Skin exam: Present erythema Medical Decision Making Medical Records Medical records reviewed
--- NOTE | 2022-10-10 00:57 | PC.NURSE ---
got pt some ice chips
[2022-10-10 01:01] LABS: Coronavirus 19, PCR Not Detected (NotDetected); Influenza A, PCR Not Detected (NotDetected); Influenza B, PCR Not Detected (NotDetected)
[2022-10-10 01:18] LABS: Basophils % 0.8 % (0.1-2.0); Eosinophils # 0.2 K/mm3 (0.0-0.4); Eosinophils % 3.9 % (0.1-12.0); Hematocrit 33.9 % (37.0-47.0); Hemoglobin 11.1 g/dL (12.2-16.2); Lymphocytes # 1.1 K/mm3 (0.7-4.5); Mean Corpuscular HGB Conc 32.6 g/dL (31.8-35.4); Mean Corpuscular Hemoglobin 26.9 pg (27.0-31.2); Mean Corpuscular Volume 82.6 fl (81-99); Mean Platelet Volume 7.8 fl (7.4-10.4); Monocytes # 0.4 K/mm3 (0.1-1.0); Monocytes % 7.4 % (1.7-9.3); Neutrophils # 3.2 K/mm3 (1.8-7.8); Neutrophils % 64.8 % (37.0-80.0); Platelet Count 336 K/mm3 (142-424); Red Cell Distribution Width 14.4 % (11.5-17.5); White Blood Count 4.9 K/mm3 (4.8-10.8)
[2022-10-10 01:21] LABS: Chloride 108 mmol/L (98-107)
[2022-10-10 01:22] LABS: Potassium 3.9 mmoL/L (3.5-5.1); Sodium 140 mmol/L (136-145)
[2022-10-10 01:24] LABS: Alanine Aminotransferase 18 U/L (12-78); Alkaline Phosphatase 135 U/L (38-126); Aspartate Amino Transferase 24 U/L (14-36); Bilirubin,Total 0.3 mg/dl (0.2-1.3); Blood Urea Nitrogen 13 mg/dl (7-17); Creatinine Clearance Estimated 58 mL/min (50-200); Estimated Glomerular Filt Rate 97 ml/min (>60); GFR (African American) 117 ML/MIN (>60); Lactic Acid 0.9 mmol/L (0.7-2.1)
[2022-10-10 01:25] LABS: Albumin Level 3.5 g/dl (3.5-5.0); Albumin/Globulin Ratio 1.1 (1.1-1.8); Anion Gap 5.9 mEq/L (5-15); Calcium 8.5 mg/dl (8.4-10.2); Carbon Dioxide 30 mmol/L (22.0-30.0); Globulin 3.2 g/dL (1.3-3.2); Glucose 98 mg/dl (74-100); Total Protein,Serum 6.7 g/dl (6.3-8.2)
[2022-10-10 01:30] LABS: C-Reactive Protein 26.9 mg/L (0-4)
[2022-10-10 01:52] LABS: D-Dimer > 8.10 ug/mL (0.0-0.5)
[2022-10-10 01:57] LABS: Erythrocyte Sedimentation Rate 80 mm/hr (0-30)
--- NOTE | 2022-10-10 02:54 | PC.NURSE ---
Dr. Weiner is speaking with hospitalist.
--- NOTE | 2022-10-10 03:01 | PC.NURSE ---
Hospitalist is at bedside.
--- NOTE | 2022-10-10 03:04 | PC.NURSE ---
ROOM WORKER at bedside at this time
--- NOTE | 2022-10-10 03:12 | CA_ITS ---
FINAL REPORT TECHNIQUE: Ultrasound images of the deep venous system were obtained from the left groin to the calf veins. CLINICAL HISTORY: left lower extremity edema and pain COMPARISON: none FINDINGS: There is extensive partial thrombus of essentially the entire femoral popliteal system extending into the calf. Residual flow is minimal. IMPRESSION: Extensive left lower extremity DVT. Reviewed, Interpreted and Dictated by Aleta Pierre MD Transcribed by Maxine Bain Authenticated and [facility]
--- NOTE | 2022-10-10 03:12 | CT_ITS ---
PROCEDURE INFORMATION: Exam: CT Left Lower Extremity Without Contrast; Thigh Exam date and time: 10/10/2022 3:28 AM Age: 77 years old Clinical indication: Screening exam; R/O infection; Additional info: R/O infection, patient unable to turn left leg in any further. TECHNIQUE: Imaging protocol: CT of the Left lower extremity without contrast was performed. Exam focused on the thigh. Radiation optimization: All CT scans at this facility use at least one of these dose optimization techniques: automated exposure control; mA and/or kV adjustment per patient size (includes targeted exams where dose is matched to clinical indication); or iterative reconstruction. Other protocol: This patient has received 4 known CTs and 0 known cardiac nuclear medicine studies in the 12 months prior to the current study. COMPARISON: CT ABDOMEN PELVIS W CON 09/28/2021 8:56 PM FINDINGS: Bones/joints: Generalized bony demineralization. No acute fracture or dislocation. Soft tissues: Increased attenuation of the subcutaneous tissues of the posterior and lateral aspects of the left mid thigh, extending into the knee and upper leg regions, likely edema/cellulitis. No soft tissue gas or radiopaque foreign body. No abscess. Vasculature: Phleboliths within the pelvis. Atherosclerotic vascular disease. Intraperitoneal space: Partially visualized 2.9 cm cystic structure within the right adnexa, possibly right ovarian cyst or peritoneal inclusion cyst, unchanged. IMPRESSION: 1. No acute fracture or dislocation. 2. Partially visualized 2.9 cm cystic structure within the right adnexa, possibly right ovarian cyst or peritoneal inclusion cyst, unchanged. 3. Increased attenuation of the subcutaneous tissues of the posterior and lateral aspects of the left mid thigh, extending into the knee and upper leg regions, likely edema/cellulitis. No soft tissue gas or radiopaque foreign body. No abscess.
--- NOTE | 2022-10-10 03:18 | PC.NURSE ---
Called [facility] to update that pt will be admitted by our hospitalist
--- NOTE | 2022-10-10 03:24 | EXP.HP ---
History of Present Illness *Admission Date: 10/10/22 *Reason for visit:: Leg pain and erythema *History of present illness: This is a 77 year old female with Past medical history of multiple ortho fractures, gain abnormality, dementia who resides at an SNF and was brought to the emergency department for concerns of left thigh erythema and edema. [facility] noted redness and erythema to her left thigh 2 days ago with worsening redness noted this evening. the patient is a poor historian but does endorse left thigh pain and tenderness. She is unable to recall when this pain started. She denies any loss of sensation to the left lower extremity. She denies fever or chest pain or palpitations. Emergency department work-up significant for severely elevated D-dimer of greater than 8. Inflammatory markers were also noted to be elevated. Vital signs of been stable, she is afebrile. Given concerns for DVT versus cellulitis, she will be admitted to the hospitalist service for further evaluation [facility] Disclaimer: The information contained in this section may have been updated after the patient was seen, as this information can be updated by other users. Social History (Updated 10/10/22 @ 04:34 by Jade Jacobs RN) Smoking Status: Former smoker alcohol intake: never current occupational status: disabled Travel in the last 8 weeks: None household members: children housing: [facility] Review of Systems Review of Systems Review of systems:: unable to obtain Integumentary/Breasts Skin/Breast: Reports skin pain Comments: pain to her left thigh Meds Home Medications and Allergies Home Medications Medication Instructions Recorded Confirmed Type loratadine 10 mg capsule 10 mg PO DAILY allergies 09/19/21 10/10/22 History pantoprazole 40 mg tablet,delayed 40 mg PO DAILY Reflux/Acid reflux 09/19/21 10/10/22 History release acetaminophen 500 mg tablet 1,000 mg PO Q6HP PRN PAIN/FEVER 09/28/21 10/10/22 History ondansetron 4 mg disintegrating 4 mg PO DAILYP PRN Nausea 10/10/22 10/10/22 History tablet trazodone 50 mg tablet 25 mg PO HS Sleep/depression 10/10/22 10/10/22 History New Prescriptions to Start Prescriptions: Allergies Allergy/AdvReac Type Severity Reaction Status Date / Time No Known Allergies Allergy Verified 10/10/21 14:41 Exam Data for Last 24 hours Vital signs and Labs for Last 24 Hours: Temp Pulse Resp BP Pulse Ox 98.3 F 80 18 129/72 95 10/10/22 03:00 10/10/22 03:00 10/10/22 00:41 10/10/22 03:00 10/10/22 03:00 Laboratory Results - last 24 hr 10/10/22 00:48: SARS-CoV-2 (PCR) Not detected, Influenza A Untype (PCR) Not detected, Influenza Type B (PCR) Not detected 10/10/22 01:00: WBC 4.9, RBC 4.10 L, Hgb 11.1 L, Hct 33.9 L, MCV 82.6, MCH 26.9 L, MCHC 32.6, RDW 14.4, Plt Count 336, MPV 7.8, Neut % (Auto) 64.8, Lymph % (Auto) 23.0, [place] % (Auto) 7.4, Eos % (Auto) 3.9, Baso % (Auto) 0.8, Neut # (Auto) 3.2, Lymph # (Auto) 1.1, [place] # (Auto) 0.4, Eos # (Auto) 0.2, Baso # (Auto) 0.0, ESR 80 H 10/10/22 01:00: D-Dimer > 8.10 H 10/10/22 01:00: Sodium 140, Potassium 3.9, Chloride 108 H, Carbon Dioxide 30, Anion Gap 5.9, BUN 13, Creatinine 0.60, Estimated Creat Clear 58, Estimated GFR 97, Est GFR ( Amer) 117, Glucose 98, Calcium 8.5, Total Bilirubin 0.3, AST 24, ALT 18, Alkaline Phosphatase 135 H, C-Reactive Protein 26.9 H, Total Protein 6.7, Albumin 3.5, Globulin 3.2, Albumin/Globulin Ratio 1.1 10/10/22 01:00: Lactate 0.9 I & O for Last 24 hours: Intake & Output 10/07/22 10/08/22 10/09/22 10/10/22 23:59 23:59 23:59 23:59 Weight 79.379 kg Constitutional Constitutional: no acute distress *Routine HEENT Exam Head: Present normocephalic and atraumatic Eye: Present EOMI ENT: Present mucous membranes moist *Routine Neck Exam Neck: Present supple and full ROM *Routine Respiratory Exam Respiratory: Present normal respiratory effort
[2022-10-10 03:52] LABS: Procalcitonin 0.059 ng/mL (0.0-2.0)
--- NOTE | 2022-10-10 03:57 | PC.NURSE ---
PT ARRIVED TO FLOOR AT THIS TIME
--- NOTE | 2022-10-10 04:46 | PC.NURSE ---
Pt is a new admission, 77 year old white female from [facility]. Pt is Alert and oriented to self, name and Birthday. Thought blocking noted, unable to answer most questions. Pt left posterior thigh is red and tight, complains of tenderness when touched. Lungs were clear, resp even and non labored. Bowel sounds x 4 . Pt has been oriented to place date and time. Encouraged pt to use call light for needs, IV patent, bed locked in low position, side rail up x 2.
[2022-10-10 07:05] LABS: Basophils # 0.1 K/mm3 (0-0.2); Basophils % 1.2 % (0.1-2.0); Eosinophils # 0.2 K/mm3 (0.0-0.4); Eosinophils % 3.5 % (0.1-12.0); Hematocrit 34.3 % (37.0-47.0); Hemoglobin 11.4 g/dL (12.2-16.2); Lymphocytes % 22.2 % (10-50); Mean Corpuscular HGB Conc 33.3 g/dL (31.8-35.4); Mean Corpuscular Hemoglobin 28.6 pg (27.0-31.2); Mean Corpuscular Volume 85.8 fl (81-99); Mean Platelet Volume 8.2 fl (7.4-10.4); Monocytes # 0.3 K/mm3 (0.1-1.0); Monocytes % 6.2 % (1.7-9.3); Neutrophils # 3.1 K/mm3 (1.8-7.8); Platelet Count 353 K/mm3 (142-424); Red Cell Distribution Width 14.3 % (11.5-17.5); White Blood Count 4.7 K/mm3 (4.8-10.8)
[2022-10-10 07:15] LABS: Blood Urea Nitrogen 13 mg/dl (7-17); Calcium 8.4 mg/dl (8.4-10.2); Carbon Dioxide 30 mmol/L (22.0-30.0); Chloride 108 mmol/L (98-107); Creatinine Clearance Estimated 46 mL/min (50-200); Estimated Glomerular Filt Rate 97 ml/min (>60); GFR (African American) 117 ML/MIN (>60); Glucose 85 mg/dl (74-100); Sodium 140 mmol/L (136-145)
--- NOTE | 2022-10-10 07:50 | EXP.PHA.CONS ---
Pharmacy Consult Date: 10/10/22 Time: 07:50 Referring provider: DR. VASQUEZ Reason for Consult:: VANCOMYCIN DOSING Allergies Allergy/AdvReac Type Severity Reaction Status Date / Time No Known Allergies Allergy Verified 10/10/21 14:41 Home Medications Medication Instructions Recorded Confirmed Type ondansetron 4 mg disintegrating 4 mg PO BIDP PRN Nausea #14 tabs 09/02/21 10/10/22 Rx tablet loratadine 10 mg capsule 10 mg PO DAILY allergies 09/19/21 10/10/22 History pantoprazole 40 mg tablet,delayed 40 mg PO DAILY Reflux/Acid reflux 09/19/21 10/10/22 History release acetaminophen 500 mg tablet 1,000 mg PO Q6 Pain 09/28/21 10/10/22 History lactulose 20 gram/30 mL oral 30 gm PO DAILYP PRN Constipation 09/28/21 10/10/22 History solution albuterol sulfate 2.5 mg/3 mL 2.5 mg IH Q6HP PRN SOA 10/10/21 10/10/22 History (0.083 %) solution for nebulization nystatin 100,000 unit/gram topical 1 applicatio TP BID PRN BREAST 10/10/21 10/10/22 History powder EXCORIATION trazodone 50 mg tablet 50 mg PO HSP PRN Insomnia 10/10/22 10/10/22 History New Prescriptions to Start Prescriptions: Height: 1.57 m Weight: 62.777 kg Laboratory Results:: Laboratory Results - last 24 hr 10/10/22 00:48: SARS-CoV-2 (PCR) Not detected, Influenza A Untype (PCR) Not detected, Influenza Type B (PCR) Not detected 10/10/22 01:00: WBC 4.9, RBC 4.10 L, Hgb 11.1 L, Hct 33.9 L, MCV 82.6, MCH 26.9 L, MCHC 32.6, RDW 14.4, Plt Count 336, MPV 7.8, Neut % (Auto) 64.8, Lymph % (Auto) 23.0, [place] % (Auto) 7.4, Eos % (Auto) 3.9, Baso % (Auto) 0.8, Neut # (Auto) 3.2, Lymph # (Auto) 1.1, [place] # (Auto) 0.4, Eos # (Auto) 0.2, Baso # (Auto) 0.0, ESR 80 H 10/10/22 01:00: D-Dimer > 8.10 H 10/10/22 01:00: Sodium 140, Potassium 3.9, Chloride 108 H, Carbon Dioxide 30, Anion Gap 5.9, BUN 13, Creatinine 0.60, Estimated Creat Clear 58, Estimated GFR 97, Est GFR ( Amer) 117, Glucose 98, Calcium 8.5, Total Bilirubin 0.3, AST 24, ALT 18, Alkaline Phosphatase 135 H, C-Reactive Protein 26.9 H, Total Protein 6.7, Albumin 3.5, Globulin 3.2, Albumin/Globulin Ratio 1.1 10/10/22 01:00: Lactate 0.9 10/10/22 01:00: Procalcitonin 0.059 10/10/22 06:55: WBC 4.7 L, RBC 4.00 L, Hgb 11.4 L, Hct 34.3 L, MCV 85.8, MCH 28.6, MCHC 33.3, RDW 14.3, Plt Count 353, MPV 8.2, Neut % (Auto) 67.0, Lymph % (Auto) 22.2, [place] % (Auto) 6.2, Eos % (Auto) 3.5, Baso % (Auto) 1.2, Neut # (Auto) 3.1, Lymph # (Auto) 1.0, [place] # (Auto) 0.3, Eos # (Auto) 0.2, Baso # (Auto) 0.1 10/10/22 06:55: Sodium 140, Potassium 4.0, Chloride 108 H, Carbon Dioxide 30, Anion Gap 6.0, BUN 13, Creatinine 0.60, Estimated Creat Clear 46, Estimated GFR 97, Est GFR ( Amer) 117, Glucose 85, Calcium 8.4 Assessment and Plan Assessment and plan all Dx Assessment and Plan for all problems:: Pharmacokinetic dosing service Objective: Patient: Floor: Age: 77 yo Serum creatinine: 0.60 mg/dL Height: 61.8 Inches Weight (kg): 62.8 Assessment: IBW (kg): 49.64 Dosing wt(kg): 62.8 Estimated Creatinine clearance (ml/min): 60.6 CRCL method: Cockcroft and Gault using ibw(default). Drug selected: Vancomycin Loading dose (mg): Vd (liters): 47.1 (factor used: 0.75 L/kg) Kendrick (hr-1): 0.055 Half life (hrs): 12.60 CLvanco=?? 2.591 L/hr Recommended dose: 1000 mg Interval: 18 hrs Infusion time (hrs): 2.0 Predicted peak (mcg/mL): 32.0 Predicted trough (mcg/mL): 13.27 Total body weight is being used for vancomycin dosing. Recommendations: Give Vancomycin 1000 mg q 18 hrs with an expected Cpeak of 32.0 mcg/ml and an expected Ctrough of 13.27 mcg/ml AUC 0-24 /IRON Data: IRON 0.5 mcg/mL:?? AUC/IRON:? 1029.2 IRON 1.0 mcg/mL:?? AUC/IRON:? 514.6 --------- IRON 1.5 mcg/mL:?? AUC/IRON:? 343.1 IRNO 2.0 mcg/mL
--- NOTE | 2022-10-10 07:51 | SW/DCPLANNER ---
Addendum entered by Dominga Zapata 10/10/22 09:39: The plan for this patient is to return to [facility] today ICF level of care. Original Note: This patient currently resides at [facility] ICF level of care. I will continue to follow up with Giovana at [facility] until patient is medically stable for discharge. Discharge date is unknown at this time.
--- NOTE | 2022-10-10 07:53 | P.CONPHA_ITS ---
Pharmacy Intervention Comments: home medication list verified using MAR from residential
--- NOTE | 2022-10-10 09:55 | EXP.DC.SUM ---
General Admission date:: 10/10/22 Discharge date: 10/10/22 HPI HPI HPI: This is a 77 year old female with Past medical history of multiple ortho fractures, gain abnormality, dementia who resides at an SNF and was brought to the emergency department for concerns of left thigh erythema and edema. [facility] noted redness and erythema to her left thigh 2 days ago with worsening redness noted this evening. the patient is a poor historian but does endorse left thigh pain and tenderness. She is unable to recall when this pain started. She denies any loss of sensation to the left lower extremity. She denies fever or chest pain or palpitations. Emergency department work-up significant for severely elevated D-dimer of greater than 8. Inflammatory markers were also noted to be elevated. Vital signs of been stable, she is afebrile. Given concerns for DVT versus cellulitis, she will be admitted to the hospitalist service for further evaluation Hospital Course Hospital Course Hospital Course: Left leg pain DVT Ms. Rivera is a pleasant 77-year-old female who is a long-term resident [facility]. She is legally blind. Presented for frequent falls and pain in her left thigh. Lower extremity duplex obtained showing diffuse DVT of left lower extremity. Patient initially treated with 1 dose of Lovenox at time of admission. Transitioned to oral apixaban. Plan to complete 7 days total of 10 mg twice daily. Transition to 5 mg twice daily thereafter to complete at least 3-month course of anticoagulation. Will defer further management as far as continued anticoagulation decision to primary provider. If no previous history of DVTs, may consider stopping anticoagulation at that time after completing 3 months total of therapy. Patient is remained hemodynamically stable with no oxygen requirement or shortness of breath. Initial concern for cellulitis with single dose of vancomycin provided. Given her procalcitonin is normal, she has a normal white cell count, low concern for infection. All symptoms consistent with DVT. Dementia Patient stable during admission. No outbursts or behavioral concerns. Frequent Falls/Gait Abnormality Fall Risk Medically stable for [facility] back to [facility]. Recommend continued therapy. No changes to other chronic medications. Exam Data for Last 24 hours Vital signs and Labs for Last 24 Hours: Temp Pulse Resp BP Pulse Ox 98.6 F 74 17 144/60 H 96 10/10/22 07:24 10/10/22 07:24 10/10/22 07:24 10/10/22 07:24 10/10/22 07:24 Laboratory Results - last 24 hr 10/10/22 00:48: SARS-CoV-2 (PCR) Not detected, Influenza A Untype (PCR) Not detected, Influenza Type B (PCR) Not detected 10/10/22 01:00: WBC 4.9, RBC 4.10 L, Hgb 11.1 L, Hct 33.9 L, MCV 82.6, MCH 26.9 L, MCHC 32.6, RDW 14.4, Plt Count 336, MPV 7.8, Neut % (Auto) 64.8, Lymph % (Auto) 23.0, [place] % (Auto) 7.4, Eos % (Auto) 3.9, Baso % (Auto) 0.8, Neut # (Auto) 3.2, Lymph # (Auto) 1.1, [place] # (Auto) 0.4, Eos # (Auto) 0.2, Baso # (Auto) 0.0, ESR 80 H 10/10/22 01:00: D-Dimer > 8.10 H 10/10/22 01:00: Sodium 140, Potassium 3.9, Chloride 108 H, Carbon Dioxide 30, Anion Gap 5.9, BUN 13, Creatinine 0.60, Estimated Creat Clear 58, Estimated GFR 97, Est GFR ( Amer) 117, Glucose 98, Calcium 8.5, Total Bilirubin 0.3, AST 24, ALT 18, Alkaline Phosphatase 135 H, C-Reactive Protein 26.9 H, Total Protein 6.7, Albumin 3.5, Globulin 3.2, Albumin/Globulin Ratio 1.1 10/10/22 01:00: Lactate 0.9 10/10/22 01:00: Procalcitonin 0.059 10/10/22 06:55: WBC 4.7 L, RBC 4.00 L, Hgb 11.4 L, Hct 34.3 L, MCV 85.8, MCH 28.6, MCHC 33.3, RDW 14.3, Plt Count 353, MPV 8.2, Neut % (Auto) 67.0, Lymph % (Auto) 22.2, [place] % (Auto) 6.2, Eos % (Auto) 3.5, Baso % (Auto) 1.2, Neut # (Auto) 3.1, Lymph # (Auto) 1.0, [place] # (Auto) 0.3, Eos # (Auto) 0.2, Baso # (Auto) 0.1 10/10/22 06:55: Sodium 140, Potassium 4.0, Chloride 108 H, Carbon Dioxide 30, Anion Gap 6.0,
--- NOTE | 2022-10-10 12:39 | PC.NURSE ---
report called to snf, ems notified for transport
--- NOTE | 2022-10-11 11:13 | CARE MANAGER ---
Spoke with Dominga at [facility] [place] and she states patient is doing well. Denies any questions or concerns. DEV Hdez
== END 2022-10-10 14:52 ==
LOC: ER 02:17 → 2ND 03:22
PROVIDERS: Nurse Practitioner Acute Care; Admitting Provider Internal Medicine Adolescent Medicine; Emergency Provider Emergency Medicine; PCP Family Medicine; Visit Provider Internal Medicine Adolescent Medicine
DX: M79.605 Pain in left leg (principal); R29.6 Repeated falls; R26.9 Unspecified abnormalities of gait and mobility; I82.412 Acute embolism and thrombosis of left femoral vein; I82.432 Acute embolism and thrombosis of left popliteal vein; I82.462 Acute embolism and thrombosis of left calf muscular vein; Z79.899 Other long term (current) drug therapy; F03.90 Unspecified dementia, unspecified severity, without behavioral disturbance, psychotic disturbance, mood disturbance, and anxiety; Z20.822 Contact with and (suspected) exposure to COVID-19
CPT/HCPCS: G0378; 36415; 71045; 73700; 80048; 80053; 83605; 84145; 85025; 85378; 85651; 86140; 87040; 93971; 99285; C9803; J3370; U0003; U0005

== ENCOUNTER 2024-01-26 19:13 | Emergency (ER) | payer MEDICARE, MEDICAID, SELFPAY ==
[2024-01-26 19:05] VITALS: BP 138/75; PULSE 75; RESP 18; TEMP 36.6; O2SAT 98; BMI 34.3
--- NOTE | 2024-01-26 19:07 | ED_ITS ---
<Statement entered by Mitchell Faulkner MD - 01/26/24 19:22> I was consulted by the LEONARD, and we discussed the complexity of the problems being addressed. I approved the treatment and management plan for this patient's care in the emergency department, thus performing a substantive portion of the medical decision making. Mitchell Faulkner MD Discharge Plan Disposition Patient Disposition: Xfer SNF Condition: Good Prescriptions Prescriptions: No Action loratadine 10 MG capsule 10 mg PO DAILY pantoprazole 40 MG tablet,delayed release (DR/EC) 40 mg PO DAILY acetaminophen 500 MG tablet 1,000 mg PO Q6HP PRN (Reason: PAIN/FEVER) trazodone 50 mg tablet 25 mg PO HS ondansetron 4 MG tablet,disintegrating 4 mg PO DAILYP PRN (Reason: Nausea) Eliquis 5 mg Tablet 10 mg PO BID 7 Days Qty: 28 0RF Rx Instructions: Patient needs evening dose tonight at 9 PM. Continue twice daily for 6 more days. Then transition to 5 mg twice daily to complete 3 months of therapy. nystatin 100,000 unit/gram Powder 0 g topical BID Qty: 0 0RF lactulose 20 gram/30 mL Solution 30 g PO DAILYP PRN (Reason: Constipation) Qty: 0 0RF Activity Restrictions/Add. Instructions Additional Instructions/Restrictions: At this time is felt you are safe to be discharged home. If new or worsening symptoms please not hesitate to return the emergency department. You are able to swallow freely without symptoms at the emergency department today. If you have progressive difficulty swallowing it will be advantageous to have your family doctor refer you for a swallow study or possible endoscopy. Clinical Impressions Clinical Impression: Choking episode Discharge ED Provider: Mitchell Faulkner General Adult HPI General Stated complaint: wellness check Time Seen by Provider: 01/26/24 19:15 History of Present Illness HPI narrative: Patient presents for evaluation after an episode of choking . Report from the alf in [facility] stated that the patient was choking during dinner but self cleared her airway and had no symptoms prior to transfer. On arrival patient reports that she has no symptoms or self denies chest pain shortness of breath fever chills hemoptysis hematochezia melena nausea vomiting diarrhea. Related Data Home Medications Medication Instructions Recorded Confirmed loratadine 10 mg capsule 10 mg PO DAILY allergies 09/19/21 10/10/22 pantoprazole 40 mg tablet,delayed 40 mg PO DAILY Reflux/Acid reflux 09/19/21 10/10/22 release acetaminophen 500 mg tablet 1,000 mg PO Q6HP PRN PAIN/FEVER 09/28/21 10/10/22 ondansetron 4 mg disintegrating 4 mg PO DAILYP PRN Nausea 10/10/22 10/10/22 tablet trazodone 50 mg tablet 25 mg PO HS Sleep/depression 10/10/22 10/10/22 Previous Rx's Medication Instructions Recorded apixaban 5 mg tablet (Eliquis) 10 mg (2 x 5 mg) PO BID 7 days #28 10/10/22 tabs lactulose 20 gram/30 mL oral 30 g (45 mL) PO DAILYP PRN 10/10/22 solution Constipation #0 mL nystatin 100,000 unit/gram topical 0 g topical BID #0 grams 10/10/22 powder Allergies Allergy/AdvReac Type Severity Reaction Status Date / Time No Known Allergies Allergy Verified 10/10/21 14:41 [facility] Disclaimer: The information contained in this section may have been updated after the patient was seen, as this information can be updated by other users. Social History (Updated 10/10/22 @ 04:34 by Jade Jacobs RN) Smoking Status: Former smoker alcohol intake: never current occupational status: disabled Travel in the last 8 weeks: None household members: children housing: alf ROS Obtained: Yes Systems reviewed as appropriate & no additional complaints except as documented Physical Exam General General appearance: alert Chest Chest inspection: Present normal inspection Respiratory Respiratory exam: Present normal lung sounds bilaterally Cardiovascular Cardiovascular exam: Present regular rate Abdominal Exam Abdominal exam: Present soft; Absent tenderness Neurological Exam Neurological exam: Present alert and oriented X3 Medical Decision Making Medical Records Medical records reviewed: Yes I reviewed the patient's medical records. Timothy Inquiry Pt receiving controlled substance: No Lab Data Lab results reviewed: Yes I reviewed the patient's lab results. Medical Decision Narrative: In summary patient is a 78-year-old female who presents to the emergency department for evaluation of choking. Patient is hemodynamically stable upon arrival, afebrile. Physical exam is unremarkable and nonfocal. Differential diagnosis includes choking versus food bolus versus aspiration. Initial workup will be conducted with p.o. fluid challenge. Initial interventions include p.o. fluid challenge. Initial workup reviewed by me and patient was able to tolerate p.o. fluid challenge without evidence of aspiration or choking or dysphagia.. Upon repeat evaluation patient was able to repeat the p.o. fluid challenge again without any difficulty.. Given this patient is discharged back home to her alf. Critical Care Critical Care Time Critical Care Time: No
[2024-01-26 19:15] VITALS: BP 138/75; PULSE 76; RESP 18; TEMP 36.6; O2SAT 98
--- NOTE | 2024-01-26 19:15 | PC.NURSE ---
report called back to [facility]
== END 2024-01-26 19:15 ==
PROVIDERS: Emergency Provider Emergency Medicine
DX: R09.89 Other specified symptoms and signs involving the circulatory and respiratory systems (principal)
CPT/HCPCS: 99282

== ENCOUNTER 2024-08-06 13:41 | Emergency (ER) | payer MEDICARE, MEDICAID, SELFPAY ==
[2024-08-06 13:41] VITALS: BP 191/72; PULSE 69; RESP 18; TEMP 36.7; O2SAT 97; BMI 27.3
--- OUTSIDE RECORDS SUMMARY | 2024-08-06 13:59 | XMS_ITS | Continuity of Care Document ---
Author Organization [address] [place] [address] Address [address] [facility] [address] [place] [address] Phone Care Team Providers Care Spooler Operator Name Role Phone Darron PAOLASandra Unavailable Unavailable Allergies, Adverse Reactions, Alerts Substance Reaction Status Criticality No Known Allergies Active No Inform ation Medications Medication Instructions Dosage Effective Dates (start - stop) Status Comments loratadine 10 mg tablet - Ac tive polyethylene glycol 3350 17 gram/dose oral powder - Active Stool Softener 100 mg tablet - Active Anti-Diarrheal (loperamide) 2 mg tablet - Active pantoprazole 40 mg tablet,delayed release - Active trazodone 50 mg tablet - Act kenneth Eliquis 5 mg tablet - Active ondansetron HCl 4 mg tablet - Active Constulose 10 gram/15 mL oral solution - Active hydrocodone 5 mg-acetaminophen 325 mg tablet - Active neomycin 3.5 mg-polymyxin 10,000 unit-hydrocort 10 mg/mL eye drop,susp - Active Vazalore 81 mg capsule - Active Procedures Procedure Date COMPRE OPH EXAM EST PT 1/> DEBRIDE NAIL 6 OR MORE SBSQ NF CARE LOW MDM 20 Cleaning And Inspection Of UCD DEBRIDE NAIL 6 OR MORE FULL FIELD ERG W/I&R SBSQ NF CARE MODERATE MDM 30 Periodic Oral Evaluation Complete Series Of Radiographic Images A Cleaning And Inspection Of UCD Oral hygene instruction REMOVE IMPACTED EAR WAX PARING/CUTG B9 HYPRKER LES 1 DEBRIDE NAIL 6 OR MORE FUNDUS PHOTOGRAPHY external ocular photography w interp & report for document of medical progress COMPRE OPH EXAM EST PT 1/> COVER EYE W/MEMBRANE PARING/CUTG B9 HYPRKER LES 1 DEBRIDE NAIL 6 OR MORE Periodic Oral Evaluation Cleaning And Inspection Of UCD Oral hygene instruction FULL FIELD ERG W/I&R TRIM SKIN LESION DEBRIDE NAIL 6 OR MORE Cleaning And Inspection Of UCD 23 DEBRIDE NAIL 6 OR MORE FULL FIELD ERG W/I&R Periodic Oral Evaluation Oral hygene instruction Cleaning And Inspection Of UCD Periodic Oral Evaluation EYE EXAM & TREATMENT DEBRIDE NAIL 6 OR MORE Cleaning And Inspection Of UCD 23 Periodic Oral Evaluation Oral hygene instruction Cleaning And Inspection Of UCD TRIM SKIN LESION DEBRIDE NAIL 6 OR MORE DEBRIDE NAIL 6 OR MORE Oral hygene instruction Cleaning And Inspection Of UCD 22 DEBRIDE NAIL 6 OR MORE FUNDUS PHOTOGRAPHY EYE EXAM NEW PATIENT TRIM SKIN LESION DEBRIDE NAIL 6 OR MORE Oral hygene instruction Periodic Oral Evaluation Cleaning And Inspection Of UCD Advance Directives Directive Yes / No Effective Date File Name No Information Encounters Encounter Description Practice Location Reason(s) For Visit Diagnoses Date Provider Providers Copied on Encounter [facility], [address] [place] [address], [place], [place], [id number], tel:[phone] [facility] Follow Up of Dry eyes (chief complaint) Other optic atrophy, bilateralDry eye syndrome of bilateral lacrimal glandsPresbyop ia 4 [place], [place]. Referring Provider: Satish Alvarado. [facility] NF CARE LOW MDM [address] [address], [place], [place], [id number], tel:[phone] [facility] Onychogryphosi sNail dystrophyOther specified peripheral vascular diseases [address] [place], [place]. [address] [address], [place], [place], [id number], [place] tel:[phone] [facility] Encounter for dental examination and cleaning without abnormal findings 4 Nicho Raza. . Referring Provider: Satish Alvarado. [facility], [address] [place] [address], [place], [place], [id number], [place] tel:[phone] [facility] Other specified peripheral vascular diseasesTinea unguium [id number] [place] [address], [address], [place], [address], [place]. [address] [address], [place], [place], [id number], [place] tel:[phone] [facility] No Information [address] Ku[address] [place] [address], [address], [place], [address], [place]. SBSQ NF CARE MODERATE MDM [address], [place], [place], [id number], [place] tel:[phone] [facility] Medical eye problem (chief complaint) Other optic atrophy, bilateral 4 [place], [place]. Referring Provider: Satish Alvarado. [facility], [address] [facility] [address], [place], [place], [id number], tel:[phone] [facility] Encounter for dental examination and cleaning without abnormal findings 4 Jason Puentes. [address], [address], [place], [place], [id number], [place]. tel:[phone] Referring Provider: Satish Alvarado. [address] [place] [address], [address] [place] [address], [place], [place], [id number], tel:[phone] [facility] hearing loss (chief complaint) Impacted cerumen, bilateral 4 Kaycee-Hard rodri Hedy. [address] [place] [address], [address], [place], [address], [place]. Referring Provider: Satish Alvarado. [facility], [address] [place], [place] [address], [place], [place], [id number], [place] tel:[phone] [facility] Corns and callositiesOth er specified peripheral vascular diseasesTinea unguium 4 Jose Jane. [address] [facility], [address], [place], [address], [place]. Referring Provider: Satish Alvarado. [address] [place] [address], [address] [place] [address], [place], [place], [id number], [place] tel:[phone] [facility] Blurry vision (chief complaint) Dry eye syndrome of bilateral lacrimal glandsPunctate keratitis, bilateralOther optic atrophy, bilateralBenig n neoplasm of left choroidPunctat e keratitis, left eye 4 [place], [place]. Referring Provider: Satish Alvarado. [facility], [address] [place] [address], [place], [place], [id number], [place] tel:[phone] [facility] No Information 4 Darron Florse. , [place]. Referring Provider: Satish Alvarado. [facility], [address] [place], [place] [address], [place], [place], [id number], [place] tel:[phone] [facility] Tinea unguiumCorns and callositiesOth er specified peripheral vascular diseases 4 Jose Jane. [address] [facility], [address], [place], [address], [place]. Referring Provider: Satish Alvarado. [address] [place] [address], [address] [place], [place] [address], [place], [place], [id number], [place] tel:[phone] [facility] Encounter for dental examination and cleaning without abnormal findings 4 Jason Puentes. [address] [facility], [address], [place], [place], [id number], [place]. tel:[phone] Referring Provider: Satish Alvarado. [address] [place] [address], [address] [place], [place] [address], [place], [place], [id number], [place] tel:[phone] [facility] ERG visit for OA (chief complaint) Other optic atrophy, bilateral 3 Rich Jorgensen. [address] [facility], [address], [place], [address], [place]. Referring Provider: Satish Alvarado. [address] [place] [address], [address] [place], [place] [address], [place], [place], [id number], [place] tel:[phone] [facility] Corns and callositiesTin ea unguiumOther specified peripheral vascular diseases 3 Jose Jane. [address] [facility], [address], [place], [address], [place]. [address] [place] [address], [address] [place], [place] [address], [place], [place], [id number], [place] tel:[phone] [facility] Encounter for dental examination and cleaning without abnormal findings 3 Jason Puentes. [address] [facility], [address], [place], [place], [id number], [place]. tel:[phone] Referring Provider: Satish Alvarado. [facility], [address] [place] [address] [address], [place], [place], [id number], [place] tel:[phone] [facility] Tinea unguiumOther specified peripheral vascular diseases 3 Jose Jane. [address], [address], [place], [address], [place]. Referring Provider: Satish Alvarado. [facility], [address] [place] [address] [address], [place], [place], [id number], [place] tel:[phone] [facility] ERG visit for OA OU (chief complaint) Other optic atrophy, bilateral 3 Rich Jorgensen. [address] [facility], [address], [place], [address], [place]. Referring Provider: Satish Alvarado. [facility], [address] [place], [place] [address], [place], [place], [id number], [place] tel:[phone] [facility] Encounter for dental examination and cleaning without abnormal findings 3 [place], [place]. tel:[phone] Referring Provider: Satish Alvarado. [facility], [address] [place] [address] [address], [place], [place], [id number], [place] tel:[phone] [facility] Decreased vision (chief complaint) Other optic atrophy, bilateralDry eye syndrome of bilateral lacrimal glands 3 Rich Jorgensen. [address] [facility], [address], [place], [address], [place]. Referring Provider: Satish Alvarado. [facility], [address] [place] [address] [address], [place], [place], [id number], [place] tel:[phone] [facility] Tinea unguiumOther specified peripheral vascular diseases 3 Jose Jane. [address], [address], [place], [address], [place]. Referring Provider: Satish Alvarado. [facility], [address] [place] [address] [address], [place], [place], [id number], [place] tel:[phone] [facility] Encounter for dental examination and cleaning without abnormal findings 3 [facility] [[email or web address]]frank [place], [place]. Referring Provider: Satish Alvarado. [facility], [address] [place] [address] [address], [place], [place], [id number], [place] tel:[phone] [facility] Encounter for dental examination and cleaning without abnormal findings 2 [place]. tel:[phone] Referring Provider: Satish Alvarado. [facility], [address] [place], [place] [address], [place], [place], [id number], [place] tel:[phone] [facility] Tinea unguiumCorns and callositiesOth er specified peripheral vascular diseases 2 [address] Jane[address] [place] [address], [address], [place], [address], [place]. Referring Provider: Satish Alvarado. [facility], [address] [place] [address] [address], [place], [place], [id number], [place] tel:[phone] [facility] Tinea unguiumOther specified peripheral vascular diseases 2 Jose Kuo [address] [place] [address] Rd, [address], [place], [address], [place]. Referring Provider: Satish Alvarado. [facility], [address] [place], [place] [address], [place], [place], [id number], [place] tel:[phone] [facility] Encounter for dental examination and cleaning without abnormal findings 2 [facility] , [place]. Referring Provider: Satish Alvarado. [facility], [address] [place], [place] [address], [place], [place], [id number], [place] tel:[phone] [facility] Tinea unguiumOther specified peripheral vascular diseases 2 [facility] , [place]. Referring Provider: Satish Johnson [facility], [address] [place], [place] [address], [place], [place], [id number], tel:[phone] [facility] Blurry vision (chief complaint) Other optic atrophy, bilateral 2 Rich Jorgensen. [address] [facility], [address], [place], [address], [place]. Referring Provider: Satish Alvarado. [address] [place] [address], [address] [facility] [address], [place], [place], [id number], tel:[phone] [facility] Tinea unguiumCorns and callositiesOth er specified peripheral vascular diseases 2 Jose Jane. [address] [facility], [address], [place], [address], [place]. Referring Provider: Satish Alvarado. [address] [place] [address], [address] [facility] [address], [place], [place], [id number], tel:[phone] [facility] Encounter for dental exam and cleaning w/o abnormal findings 2 Avelino Mock. [address] [facility], [address], [place], [place], [id number], [place]. tel:[phone] Referring Provider: Satish Alvarado. [address] [place] [address], [address] [facility] [address], [place], [place], [id number], tel:[phone] [place] [address] No Information 2 Rich Jorgensen. [address] [facility], [address], [place], [place], [facility], . Family History Family Member Type Diagnosis Age At Onset No Information Payers Payer name Insurance type Covered democrat ID Authorashlyna tijeffrey(s) [employer] [id number] Social History Type Description Quantity Date Captured Comments Sex Female Smoking Status No Information Chief Complaint And Reason For Visit From encounter dated '07/30/2024 12:00'. Follow Up of Dry eyes (chief complaint). Description: The 79 year old patient presents for evaluation of Follow Up of Dry eyes in the right eye and left eye. It occurs with no pattern. The symptom isoccasional. The condition is improving. Reason For Referral Reason For Referral No Information Plan Of Treatment Date Type Action Status Appointment Binta Rievra. LANG D Patient Education Earwax Blockage: Care I nstructions completed Patient Education Learning About Dental Care and Your Health Problem completed Patient Education Learning About Dentures completed Patient Education Learning About Dental Care and Your Health Problem completed Patient Education Learning About Dental Care and Your Health Problem completed Patient Education Learning About Dentures completed Patient Education Learning About Dental Care and Your Health Problem completed Patient Education Learning About Dentures completed Patient Education Learning About Dental Care and Your Health Problem completed History Of Present Illness Encounter Date Complaint History Of Prese nt Illness Follow Up of Dry eyes The 79 yea r old patient presents for evaluation of Follow Up of Dry eyes in the right eye and left eye. It occurs with no pattern. The symptom is occasional. The condition is improving. Medical eye problem The 79 year old patient presents for evaluation of Medical eye problem in the right eye and left eye. It occurs always. The onset was gradual. The symptom is constant. ERG due to optic atrophy OU. Blurry vision The 78 year old patient presents for evaluation of Blurry vision in the right eye and left eye. It occurs always. The onset was progressive. The symptom is constant. ERG visit for OA ERG visit for O A ERG visit for OA OU ERG visit fo r OA OU Decreased vision The 77 year old female presents for evaluation of Decreased vision in the right eye and left eye. It occurs all the time. The onset was progressive. It affects both near and far vision. Blurry vision The 76 year old female presents for evaluation of Blurry vision in the right eye and left eye. It occurs all the time. The onset was progressive. It affects both near and far vision. The symptom is constant. Chart says legally blind. Functional Status Date Functional Assessmen t No Information Instructions Date Instruction Additional Infor isaias Return in 12-15 candace hs for dilated fundus exam. Related to Other optic atrophy, bilateral Follow up - Return i n 12-15 months for dilated fundus exam. Related to Other optic atrophy, bilateral Impression/Plan - Stable; monito r. Related to Other optic atrophy, bilateral Impression/Plan - Dr y eye syndrome well controlled with artificial tears; continue as directed. Related to Dry eye syndrome of bilateral lacrimal glands Impression/Plan - Gl asses will be ordered pending insurance approval. Related to Presbyopia All documented thick ened nails were debrided using a rotary tool and nail nipper. Related to Onychogryphosis All documented dystr ophic nails were reduced in length as needed to prevent pain and other symptoms. 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 Follow up in 2-3 months. Related to Tinea unguium Return in 6-9 months for ERG. Re lated to Other optic atrophy, bilateral Follow up - Return i n 6-9 months for ERG. Related to Other optic atrophy, bilateral Impression/Plan - ER G results are borderline OD, normal OS. Monitor for changes. Related to Other optic atrophy, bilateral f/u with pcp if pain returns and as needed. may refer to audiology if pt, family, and/or facility wish to pursue. Follow up in 6-9 months or sooner if needed. Related to Impacted cerumen, bilateral All of the calluses were debrided/pared to prevent further tissue breakdown and pain. Related to Corns and callosities Toenails 1-5 b/l wer e debrided in length and thickness without incident. Follow up in 2-3 months. Related to Tinea unguium Return in 4-6 months for cornea eval. Return in 3-6 months for ERG. 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 Consider treating other eye at next visit. 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 Photodocument. Monitor. Related to Other optic atrophy, bilateral Impression/Plan - Sm all nevus noted OS; photodocument. 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 We will monitor for progression. Systane Balance recommended. Related to Dry eye syndrome of bilateral lacrimal glands Follow up - Return i n 4-6 months for cornea eval. Return in 3-6 months for ERG. 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 Follow up in 2-3 months. Related to Tinea unguium All of the calluses were debrided/pared to prevent further tissue breakdown and pain. Related to Corns and callosities Impression/Plan - No rmal ERG OU, stable OU. Repeat in 6 months to help watch for retinal changes Related to Other optic atrophy, bilateral Toenails 1-5 b/l wer e debrided in length and thickness without incident. Follow up in 2-3 months. Related to Tinea unguium All of the calluses were debrided/pared to prevent further tissue breakdown and pain. Related to Corns and callosities Toenails 1-5 b/l wer e debrided in length and thickness without incident. Follow up in 2-3 months. Related to Tinea unguium Impression/Plan - Ab normal ERG OD, normal ERG OS. Repeat in 6 months to help watch progression or changes of OA. Related to Other optic atrophy, bilateral Impression/Plan - St able, long standing, reason for loss of vision likely. Monitor Related to Other optic atrophy, bilateral Impression/Plan - Dr y eye syndrome is significant; treat with artificial tears solution; 1 drop both eyes twice per day. Related to Dry eye syndrome of bilateral lacrimal glands Toenails 1-5 b/l wer e debrided in length and thickness without incident. Follow up in 2-3 months. Related to Tinea unguium Toenails 1-5 b/l wer e debrided in length and thickness without incident. Follow up in 2-3 months. Related to Tinea unguium All of the calluses were debrided/pared to prevent further tissue breakdown and pain. Related to Corns and callosities Toenails 1-5 b/l wer e debrided in length and thickness without incident. Follow up in 2-3 months. Related to Tinea unguium Toenails x6 were rex rided in length and thickness without incident. Follow up in 2-3 months. Related to Tinea unguium We will schedule an appoinment in 12-15 months for a dilated fundus exam. Related to Other optic atrophy, bilateral Follow up - We will schedule an appoinment in 12-15 months for a dilated fundus exam. Related to Other optic atrophy, bilateral Impression/Plan - Po ssible past vascular event OU. Pale ONHs. Poor vision. Healthy appearing macula. Monitor Related to Other optic atrophy, bilateral Toenails 1-5 b/l wer e debrided in length and thickness without incident. Follow up in 2-3 months. Related to Tinea unguium All of the calluses were debrided/pared to prevent further tissue breakdown and pain. Related to Corns and callosities Assessments Type Assessment Date assessment Other optic atrophy, bilateral N assessment Dry eye syndrome of bilateral la crimal glands assessment Presbyopia impression {oph_plan_.impression_dtls} impression {oph_plan_.impression_dtls} impression {oph_plan_.impression_dtls} Patient Care Teams Name Effective Dates (start - stop) Status Members No Information
[2024-08-06 14:00] VITALS: BP 178/84; PULSE 64; O2SAT 95
--- NOTE | 2024-08-06 14:03 | ED_ITS ---
Discharge Plan Disposition Patient Disposition: Xfer SNF Condition: Good Prescriptions Prescriptions: No Action loratadine 10 MG capsule 10 mg PO DAILY pantoprazole 40 MG tablet,delayed release (DR/EC) 40 mg PO DAILY acetaminophen 500 MG tablet 1,000 mg PO Q6HP PRN (Reason: PAIN/FEVER) trazodone 50 mg tablet 25 mg PO HS ondansetron 4 MG tablet,disintegrating 4 mg PO DAILYP PRN (Reason: Nausea) Eliquis 5 mg Tablet 10 mg PO BID 7 Days Qty: 28 0RF Rx Instructions: Patient needs evening dose tonight at 9 PM. Continue twice daily for 6 more days. Then transition to 5 mg twice daily to complete 3 months of therapy. nystatin 100,000 unit/gram Powder 0 g topical BID Qty: 0 0RF lactulose 20 gram/30 mL Solution 30 g PO DAILYP PRN (Reason: Constipation) Qty: 0 0RF Referrals Follow up/Referrals: Ralph Noel II, MD [Staff Physician] - See instructions Provider,MD Delmis [Primary Care Provider] - See instructions Activity Restrictions/Add. Instructions Additional Instructions/Restrictions: Patient is referred to gastroenterology for endoscopy. Please call in the morning to make an appointment as she has esophageal thickening on her CT scan suggestive of esophageal dysmotility. I recommend choking precautions as such. Also recommend speech and swallow evaluation. Clinical Impressions Clinical Impression: Choking episode, Aspiration pneumonitis Print Language Print Language: Cuban Discharge ED Provider: Mitchell Faulkner General Adult HPI <AKHIL Kim - Last Filed: 08/06/24 15:06> General Chief complaint: Skin/Abscess/Foreign Body Stated complaint: foreign body airway obstruction Time Seen by Provider: 08/06/24 14:03 Mode of Arrival: EMS Source of Information: EMS Limitations: No Limitations Description of Symptoms (Recalled from ER Triage Doc. by RN): Reports the patient got choked on something while eating lunch. Heimlich maneuver was performed and nothing came up. Patient is alert and oriented at this time with no complaints. History of Present Illness HPI narrative: Patient presents for evaluation of a choking episode. Patient was eating lunch and apparently got choked on food. She received a Heimlich. Patient suffered no ill effects that we are aware of although patient is a poor historian. Currently patient reports sternal chest pain from the Heimlich but denies shortness of breath fever chills hemoptysis hematochezia melena nausea vomiting diarrhea or bolus sensation. Related Data Home Medications ?Medication ?Instructions ?Recorded ?Confirmed loratadine 10 mg capsule 10 mg PO DAILY allergies 09/19/21 10/10/22 pantoprazole 40 mg tablet,delayed 40 mg PO DAILY Reflux/Acid reflux 09/19/21 10/10/22 release acetaminophen 500 mg tablet 1,000 mg PO Q6HP PRN PAIN/FEVER 09/28/21 10/10/22 ondansetron 4 mg disintegrating 4 mg PO DAILYP PRN Nausea 10/10/22 10/10/22 tablet trazodone 50 mg tablet 25 mg PO HS Sleep/depression 10/10/22 10/10/22 Previous Rx's ?Medication ?Instructions ?Recorded apixaban 5 mg tablet (Eliquis) 10 mg (2 x 5 mg) PO BID 7 days #28 10/10/22 tabs lactulose 20 gram/30 mL oral 30 g (45 mL) PO DAILYP PRN 10/10/22 solution Constipation #0 mL nystatin 100,000 unit/gram topical 0 g topical BID #0 grams 10/10/22 powder Allergies Allergy/AdvReac Type Severity Reaction Status Date / Time No Known Allergies Allergy Verified 10/10/21 14:41 [facility] <AKHIL Kim - Last Filed: 08/06/24 15:06> [facility] Disclaimer: The information contained in this section may have been updated after the patient was seen, as this information can be updated by other users. Social History (Updated 08/06/24 @ 15:06 by AKHIL Kim) Smoking Status: Unknown if ever smoked alcohol intake: never current occupational status: disabled Travel in the last 8 weeks: None household members: children housing: intermediate Other Medical History Have you received the Flu Vaccine for this season: No Have you received the Pneumonia Vaccine: No <AKHIL Kim - Last Filed: 08/06/24 15:06> ROS Obtained: Yes Systems reviewed as appropriate & no additional complaints except as documented Physical Exam <AKHIL Kim - Last Filed: 08/06/24 15:06> General General appearance: alert and in no apparent distress Neck Neck exam: Present lymphadenopathy Chest Chest inspection: Present symmetric chest wall rise Respiratory Respiratory exam: Present normal lung sounds bilaterally Cardiovascular Cardiovascular exam: Present regular rate Neurological Exam Neurological exam: Present alert and oriented X3 Medical Decision Making <AKHIL Kim - Last Filed: 08/06/24 15:06> Medical Records Medical records reviewed: Yes I reviewed the patient's medical records. Screening: Per USPSTF and CDC recommendations, given the prevalence of disease in our region, it is our hospital?s policy to screen for HIV and viral Hepatitis for all patients aged 18 and over and those with ongoing risk factors. Timothy Inquiry Pt receiving controlled substance: No Vital Signs: 08/06/24 13:41 Temperature 98.0 F Temperature Source Oral Pulse Rate [Radial] 69 Respiratory Rate 18 Blood Pressure [Right Arm] 191/72 H Blood Pressure Mean [Right Arm] 111 Blood Pressure Source [Right Arm] Automatic Cuff Blood Pressure Position [Right Arm] Sitting 02 Sat by Pulse Oximetry 97 Oxygen Delivery Method Room Air Orders (Tests/Meds): ED MEDICATIONS Discontinued Medications Generic Name Dose Route Start Last Admin Trade Name Evens PRN Reason Stop Dose Admin Acetaminophen 1,000 mg 08/06/24 14:39 Acetaminophen 500mg Tab PO 08/06/24 14:40 ONCE ONE Ibuprofen 800 mg 08/06/24 14:39 Ibuprofen 400 Mg Tablet PO 08/06/24 14:40 ONCE ONE ORDERS Category Date Time Status CT chest wo con Stat Cat Scan 08/06/24 14:07 Completed HIV (1&2) Antibody Rapid Stat Lab 08/06/24 13:48 Ordered Hep C Ab with Reflex to RNA Stat Lab 08/06/24 13:48 Ordered Medical Decision Narrative: In summary patient is a 79-year-old female who presents to the emergency department for evaluation of choking episode and chest wall pain. Patient is initially with a blood pressure of 191/72 O2 sat 97% breathing 18 times a minute heart rate of 69 upon arrival, afebrile at 98.0. Physical exam is remarkable for tenderness to palpation at the xiphoid but no palpable bony deformities. Patient has normal phonation and voice caliber. She has no stridor. Breath sounds are clear and equal bilaterally to the bases.. Differential diagnosis includes fracture versus contusion etc. Initial workup will be conducted with CT scan of the chest without contrast p.o. challenge. Initial interventions i were considered however patient has no complaints other than chest wall pain d eferred. Initial workup reviewed by me patient is able to swallow water without difficulty or choking. My informal interpretation of her CT scan of the chest without contrast shows possible lateral rib fracture prior to radiology read. Given this the patient was placed in observation status at 1430. Medical necessity for observational status is official radiology read. The patient was provided serial reevaluations continuous cardiac monitoring pulse oximetry while awaiting results. Radiology read shows aspiration pneumonitis but no bony injury and esophageal thickening distally suggestive of esophageal dysmotility. Because of this patient is appropriate for discharge with referral to GI for further evaluation with gastroenterology and as patient has no oxygen requirement no prophylactic antibiotics started for the aspiration pneumonitis.. Total time in observation was 30 minutes. <Mitchell Faulkner MD - Last Filed: 08/06/24 15:08> Vital Signs: 08/06/24 13:41 Temperature 98.0 F Temperature Source Oral Pulse Rate [Radial] 69 Respiratory Rate 18 Blood Pressure [Right Arm] 191/72 H Blood Pressure Mean [Right Arm] 111 Blood Pressure Source [Right Arm] Automatic Cuff Blood Pressure Position [Right Arm] Sitting 02 Sat by Pulse Oximetry 97 Oxygen Delivery Method Room Air Orders (Tests/Meds): ED MEDICATIONS Discontinued Medications Generic Name Dose Route Start Last Admin Trade Name Kyawq PRN Reason Stop Dose Admin Acetaminophen 1,000 mg 08/06/24 14:39 Acetaminophen 500mg Tab PO 08/06/24 14:40 ONCE ONE Ibuprofen 800 mg 08/06/24 14:39 Ibuprofen 400 Mg Tablet PO 08/06/24 14:40 ONCE ONE ORDERS Category Date Time Status CT chest wo con Stat Cat Scan 08/06/24 14:07 Completed HIV (1&2) Antibody Rapid Stat Lab 08/06/24 13:48 Ordered Hep C Ab with Reflex to RNA Stat Lab 08/06/24 13:48 Ordered Medical Decision Narrative: In summary patient is a 79-year-old female who presents to the emergency department for evaluation of choking episode and chest wall pain. Patient is initially with a blood pressure of 191/72 O2 sat 97% breathing 18 times a minute heart rate of 69 upon arrival, afebrile at 98.0. Physical exam is remarkable for tenderness to palpation at the xiphoid but no palpable bony deformities. Patient has normal phonation and voice caliber. She has no stridor. Breath sounds are clear and equal bilaterally to the bases.. Differential diagnosis includes fracture versus contusion etc. Initial workup will be conducted with CT scan of the chest without contrast p.o. challenge. Initial interventions i were considered however patient has no complaints other than chest wall pain deferred. Initial workup reviewed by me patient is able to swallow water without difficulty or choking. My informal interpretation of her CT scan of the chest without contrast shows possible lateral rib fracture prior to radiology read. Given this the patient was placed in observation status at 1430. Medical necessity for observational status is official radiology read. The patient was provided serial reevaluations continuous cardiac monitoring pulse oximetry while awaiting results. Radiology read shows aspiration pneumonitis but no bony injury and esophageal thickening distally suggestive of esophageal dysmotility. Because of this patient is appropriate for discharge with referral to GI for further evaluation with gastroenterology and as patient has no oxygen requirement no prophylactic antibiotics started for the aspiration pneumonitis.. Total time in observation was 30 minutes. I was consulted by the LEONARD, and we discussed the complexity of the problems being addressed. I approved the treatment and management plan for this patient's care in the emergency department, thus performing a substantive portion of the medical decision making. Mitchell Faulkner MD Critical Care <AKHIL Kim - Last Filed: 08/06/24 15:06> Critical Care Time Critical Care Time: No
--- NOTE | 2024-08-06 14:07 | CT_ITS ---
PROCEDURE INFORMATION: Exam: CT Chest Without Contrast; Diagnostic Exam date and time: 08/06/2024 2:11 PM Age: 79 years old Clinical indication: Injury or trauma; Other: Note and received the sergelich TECHNIQUE: Imaging protocol: Diagnostic computed tomography of the chest without contrast. Radiation optimization: All CT scans at this facility use at least one of these dose optimization techniques: automated exposure control; mA and/or kV adjustment per patient size (includes targeted exams where dose is matched to clinical indication); or iterative reconstruction. COMPARISON: CR XR CHEST PORTABLE 10/10/2022 1:25 AM FINDINGS: Limitations: The absence of intravenous contrast limits the assessment of vascular structures, lesions and lymphadenopathy. Trachea: Main airways are patent. Lungs: Branching nodularities in left lower lobe suspicious for bronchiolitis/aspiration pneumonitis. Pleural spaces: Small left pleural effusion. Heart: Unremarkable. No cardiomegaly. No pericardial effusion. Coronary arteries: There is moderate atherosclerotic calcification of the coronary arteries. Esophagus: Circumferential thickening and distension of the distal esophagus can be seen in the context of esophageal dysmotility. Lymph nodes: No evidence of hilar or mediastinal lymphadenopathy within the limits of noncontrast exam. Vasculature: Aorta is nonaneurysmal. Moderate calcifications in the descending aorta. Gallbladder and biliary ducts: There has been a cholecystectomy. Bones/joints: No acute osseous abnormality. Chronic appearing compression deformity at L1 vertebra. Soft tissues: Unremarkable. IMPRESSION: 1. Branching nodularities in left lower lobe suspicious for bronchiolitis/aspiration pneumonitis. 2. No acute osseous abnormality 3. Circumferential thickening and distension of the distal esophagus can be seen in the context of esophageal dysmotility.
[2024-08-06 14:30] VITALS: BP 198/81; PULSE 71; O2SAT 97
[2024-08-06 15:00] VITALS: BP 180/105; PULSE 65; O2SAT 98
[2024-08-06 15:30] VITALS: BP 165/83; PULSE 70; O2SAT 97
--- NOTE | 2024-08-06 15:32 | PC.NURSE ---
Have called EMS for transport back to [facility].
[2024-08-06 15:35] VITALS: BP 165/83; PULSE 76; RESP 18; TEMP 36.7; O2SAT 97
== END 2024-08-06 16:12 ==
PROVIDERS: Emergency Provider Emergency Medicine
DX: J69.0 Pneumonitis due to inhalation of food and vomit (principal); R09.89 Other specified symptoms and signs involving the circulatory and respiratory systems; R07.89 Other chest pain
CPT/HCPCS: 71250; 99284

== ENCOUNTER 2024-08-25 15:11 | Outpatient (CLI) | payer MEDICARE, MEDICAID, SELFPAY ==
[2024-08-25 16:27] LABS: Basophils % 0.4 % (0.1-2.0); Eosinophils # 0.2 K/mm3 (0.0-0.4); Eosinophils % 4.1 % (0.1-12.0); Lymphocytes # 1.2 K/mm3 (0.7-4.5); Lymphocytes % 22.7 % (10-50); Mean Corpuscular HGB Conc 33.3 g/dL (31.8-35.4); Mean Corpuscular Hemoglobin 28.8 pg (27.0-31.2); Mean Corpuscular Volume 86.3 fl (81-99); Mean Platelet Volume 7.8 fl (7.4-10.4); Monocytes # 0.3 K/mm3 (0.1-1.0); Monocytes % 6.1 % (1.7-9.3); Neutrophils # 3.5 K/mm3 (1.8-7.8); Neutrophils % 66.8 % (37.0-80.0); Platelet Count 246 K/mm3 (142-424); Red Blood Count 4.87 M/mm3 (4.20-5.40); Red Cell Distribution Width 14.2 % (11.5-17.5); White Blood Count 5.3 K/mm3 (4.8-10.8)
[2024-08-25 17:00] LABS: Erythrocyte Sedimentation Rate 56 mm/hr (0-30)
[2024-08-25 18:02] LABS: Albumin Level 3.4 g/dl (3.5-5.0); Chloride 110 mmol/L (98-107); Potassium 4.5 mmoL/L (3.5-5.1); Sodium 138 mmol/L (136-145)
[2024-08-25 18:05] LABS: Alanine Aminotransferase 16 U/L (12-78); Albumin/Globulin Ratio 1.4 (1.1-1.8); Alkaline Phosphatase 78 U/L (38-126); Anion Gap 4.5 mEq/L (5-15); Aspartate Amino Transferase 22 U/L (14-36); Bilirubin,Total 0.3 mg/dl (0.2-1.3); Blood Urea Nitrogen 15 mg/dl (7-17); Carbon Dioxide 28 mmol/L (22.0-30.0); Estimated Glomerular Filt Rate 96 ml/min (>60); GFR (African American) 116 ML/MIN (>60); Globulin 2.4 g/dL (1.3-3.2); Iron 64 ug/dL (37-170); Total Protein,Serum 5.8 g/dl (6.3-8.2)
[2024-08-25 18:06] LABS: Calcium 8.9 mg/dl (8.4-10.2); Glucose 85 mg/dl (74-100)
[2024-08-25 18:20] LABS: Total Iron Binding Capacity 270 ug/dL (265-497)
[2024-08-25 18:42] LABS: Ferritin 43.5 ng/ml (11.1-264)
[2024-08-25 19:14] LABS: C-Reactive Protein 2.4 mg/L (0-4)
--- OUTSIDE RECORDS SUMMARY | 2024-08-25 23:48 | XMS_ITS | Continuity of Care Document ---
Author Organization [address] [place] [address] [address] [place] [address] Phone Care Team Providers Care Photographic Developer And Printer Name Role Phone Sandra Rob OD Unavailable Unavailable Allergies, Adverse Reactions, Alerts Substance [...] mg capsule - Active Procedures Procedure Date Vision cs frames purchases FITTING OF SPECTACLES Lens spher bifoc plano 4.00d COMPRE OPH EXAM EST PT 1/> DEBRIDE NAIL 6 OR MORE SBSQ NF CARE LOW MDM 20 Cleaning And Inspection Of UCD 24 DEBRIDE NAIL 6 OR MORE FULL FIELD ERG W/I&R SBSQ NF CARE MODERATE MDM 30 Periodic Oral Evaluation Complete Series Of Radiographic Images A Cleaning And Inspection Of UCD 24 Oral hygene instruction REMOVE IMPACTED EAR WAX PARING/CUTG B9 HYPRKER LES 1 DEBRIDE NAIL 6 OR MORE FUNDUS PHOTOGRAPHY external ocular photography w interp & report for document of medical progress COMPRE OPH EXAM EST PT 1/ COVER EYE W/MEMBRANE PARING/CUTG B9 HYPRKER LES 1 DEBRIDE NAIL 6 OR MORE Periodic Oral Evaluation Cleaning And Inspection Of UCD 24 Oral hygene instruction FULL FIELD ERG W/I&R [...] UCD 22 DEBRIDE NAIL 6 OR MORE May-27-2022 FUNDUS PHOTOGRAPHY EYE EXAM NEW PATIENT TRIM SKIN LESION DEBRIDE NAIL 6 OR MORE Oral hygene instruction Periodic Oral Evaluation Cleaning And Inspection Of UCD Advance Directives Directive Yes / No Effective Date File Name No Information Encounters Encounter Description Practice Location Reason(s) For Visit Diagnoses Date Provider Providers Copied on Encounter [facility], [address] [place] [address], [place], [place], [id number], tel:[phone] [facility] Presbyopia 4 [place], [place]. [address] [address], [place], [place], [id number], tel:[phone] [facility] Follow Up of Dry eyes (chief complaint) Other optic atrophy, bilateralDry eye syndrome of bilateral lacrimal glandsPresbyop ia 4 [place], [place]. Referring Provider: Satish Alvarado. [facility] CARE LOW MDM 20 [address] [address], [place], [place], [id number], tel:[phone] [facility] Onychogryphosi sNail dystrophyOther specified peripheral vascular diseases 4 [place], [place]. [address] [address], [place], [place], [id number], [place] tel:[phone] [facility] Encounter for dental examination and cleaning without abnormal findings 4 Nicho Raza. . Referring Provider: Satish Alvarado. [address] [address], [place], [place], [id number], [place] tel:[phone] [facility] Other specified peripheral vascular diseasesTinea unguium 4 Jose Jane. [address] [place] [address], [address], [place], [address], [place]. [address], [place], [place], [id number], [place] tel:[phone] [facility] No Information 4 Jose Jane. [address], [address], [place], [address], [place]. SBSQ NF CARE MODERATE MDM 30 [facility] [place], [address] [place], [place] [address] [address], [place], [id number], [place] tel:[phone] [facility] Medical eye problem (chief complaint) Other optic atrophy, bilateral 4 Darron Holta. , [place]. Referring Provider: Satish Alvarado. [facility], [address] [place] [address], [place], [place], [id number], [place] tel:[phone] [facility] Encounter for dental examination and cleaning without abnormal findings 4 Jason Puentes. [address] [facility], [address], [place], [place], [id number], [place]. tel:[phone] Referring Provider: Satish Alvarado. [facility] [place], [address], [place], [place], [id number], [place] tel:[phone] [facility] hearing loss (chief complaint) Impacted cerumen, bilateral 4 Johan-Hard rodri Hedy. [address] [facility], [address], [place], [address], [place]. Referring Provider: Satish Alvarado. [facility] [place], [address] [place], [place] [address], [place], [place], [id number], [place] tel:[phone] [facility] Corns and callositiesOth er specified peripheral vascular diseasesTinea unguium 4 Jose Jane. [address], [address], [place], [address], [place]. Referring Provider: Satish Alvarado. [facility], [address], [place], [place], [id number], [place] tel:[phone] [facility] Blurry vision (chief complaint) Dry eye syndrome of bilateral lacrimal glandsPunctate keratitis, bilateralOther optic atrophy, bilateralBenig n neoplasm of left choroidPunctat e keratitis, left eye 4 [place], [place]. Referring Provider: Satish Alvarado. [address] [place] [address], [address] [place] [address], [place], [place], [id number], tel:[phone] [facility] No Information 4 [place], [place]. Referring Provider: Satish Alvarado. [address] [place] [address], [address] [place] [address], [place], [place], [id number], [place] tel:[phone] [facility] Tinea unguiumCorns and callositiesOth er specified peripheral vascular diseases 4 Jose Jane. [address] [facility], [address], [place], [address], . Referring Provider: Satish Alvarado. [address] [place] [address], [address] [place] [address], [place], [place], [id number], tel:[phone] [facility] Encounter for dental examination and cleaning without abnormal findings 4 Jason Puentes. [address] [facility], [address], [place], [place], [id number], [place]. tel:[phone] Referring Provider: Satish Alvarado. [address] [place] [address], [address] [place] [address], [place], [place], [id number], [place] tel:[phone] [facility] ERG visit for OA (chief complaint) Other optic atrophy, bilateral Dec- 3 Rich Jorgensen. [address] [facility], [address], [place], [address], [place]. Referring Provider: Satish Alvarado. [address] [place] [address], [address] [place] [address], [place], [place], [id number], tel:[phone] [facility] Corns and callositiesTin ea unguiumOther specified peripheral vascular diseases Jun- 3 Jose Jane. [address] [facility], [address], [place], [address], [place]. [facility], [address], [place], [place], [id number], [place] tel:[phone] [facility] Encounter for dental examination and cleaning without abnormal findings 3 Gomez Dhaval. [address], [address], [place], [place], [id number], [place]. tel:[phone] Referring Provider: Satish Alvarado. [facility], [address], [place], [place], [id number], [place] tel:[phone] [facility] Tinea unguiumOther specified peripheral vascular diseases 3 Jose Jane. [address], [address], [place], [address], [place]. Referring Provider: Satish Alvarado. [address] [place] [address], [address] [place], [place] [address], [place], [place], [id number], [place] tel:[phone] [facility] ERG visit for OA OU (chief complaint) Other optic atrophy, bilateral 3 Rich Jorgensen. [address] [facility], [address], [place], [address], [place]. Referring Provider: Satish Alvarado. [address] [place] [address], [address], [place], [place], [id number], [place] tel:[phone] [facility] Encounter for dental examination and cleaning without abnormal findings 3 Edgar Peck [place], [place]. tel:[phone] Referring Provider: Satish Alvarado. [facility], [address], [place], [place], [id number], [place] tel:[phone] [facility] Decreased vision (chief complaint) Other optic atrophy, bilateralDry eye syndrome of bilateral lacrimal glands 0 3 Rich Jorgensen. [address], [address], [place], [address], [place]. Referring Provider: Satish Alvarado. [facility], [address], [place], [place], [id number], [place] tel:[phone] [facility] Tinea unguiumOther specified peripheral vascular diseases 3 Jose Kuo [address] [facility], [address], [place], [address], [place]. Referring Provider: Satish Alvarado. [facility], [address] [place] [address], [place], [place], [id number], [place] tel:[phone] [facility] Encounter for dental examination and cleaning without abnormal findings 3 [place], [place]. Referring Provider: Satish Alvarado. [facility], [address] [place] [address], [place], [place], [id number], [place] tel:[phone] [facility] Encounter for dental examination and cleaning without abnormal findings 2 [place], [place]. tel:[phone] Referring Provider: Satish Alvarado. [facility], [address] [place] [address] [address], [place], [place], [id number], [place] tel:[phone] [facility] Tinea unguiumCorns and callositiesOth er specified peripheral vascular diseases 2 Jose Kuo [address] [facility], [address], [place], [address], [place]. Referring Provider: Satish Alvarado. [facility], [address] [place], [place] [address], [place], [place], [address], [place] tel:[phone] [facility] Tinea unguiumOther specified peripheral vascular diseases 2 Jose Kuo [address] [facility], [address], [place], [address], [place]. Referring Provider: Satish Alvarado. [facility], [address] [place], [place] [address], [place], [place], [id number], [place] tel:[phone] [facility] Encounter for dental examination and cleaning without abnormal findings 2 [place]. Referring Provider: Satish Alvarado. [address] [place] [address], [address], [place], [place], [id number], [place] tel:[phone] [facility] Tinea unguiumOther specified peripheral vascular diseases 2 [place], [place]. Referring Provider: Satish Alvarado. [address] [place] [address], [address] [place] [address], [place], [place], [id number], [place] tel:[phone] [facility] Blurry vision (chief complaint) Other optic atrophy, bilateral 2 Rich Jorgensen. [address] [facility], [address], [place], [address], [place]. Referring Provider: Satish Alvarado. [address] [place] [address], [address] [place] [address], [place], [place], [id number], tel:[phone] [facility] Tinea unguiumCorns and callositiesOth er specified peripheral vascular diseases 2 Jose Jane. [address] [facility], [address], [place], [address], [place]. Referring Provider: Satish Alvarado. [address] [place] [address], [address] [place] [address], [place], [place], [id number], [place] tel:[phone] [facility] Encounter for dental exam and cleaning w/o abnormal findings 2 Avelino Mock. [address] [facility], [address], [place], [place], [id number], [place]. tel:[phone] Referring Provider: Satish Alvarado. [address] [place] [address], [address] [place], [place] [address], [place], [place], [id number], [place] tel:[phone] [facility] No Information 2 Rich Jorgensen. [address] [facility], [address], [place], [address], [place]. Family History Family Member Type Diagnosis Age At Onset No Information Payers Payer name Insurance type Covered libertarian ID Authoriza epifanio(s) [employer] [facility] [id number] Social History Type Description Quantity Date Captured Comments Sex Female Smoking Status No Information Chief Complaint And Reason For Visit No Information Reason For Referral Reason For Referral No Information Plan Of Treatment Date Type Action Status Appointment Binta Rivera. JONATHONGerda Skyler Patient Education Earwax Blockage: Care I nstructions [...] and callosities Assessments Type Assessment Date assessment Presbyopia Patient Care Teams Name Effective Dates (start - stop) Status Members No Information
== END 2024-08-25 23:59 | disposition home or self-care (01) ==
LOC: LAB 15:12
PROVIDERS: PCP Family Medicine; Visit Provider Internal Medicine Gastroenterology
DX: D64.9 Anemia, unspecified (principal); R74.8 Abnormal levels of other serum enzymes; B19.20 Unspecified viral hepatitis C without hepatic coma; K74.69 Other cirrhosis of liver
CPT/HCPCS: 36415; 80053; 82728; 83540; 83550; 85025; 85651; 86140

== ENCOUNTER 2024-09-24 08:40 | Day surgery (SDC) | payer MEDICARE, MEDICAID, SELFPAY ==
[2024-09-24] VITALS (7 sets, daily range): BP systolic 119–151; BP diastolic 64–81; PULSE 50–64; RESP 14–18; TEMP 36.2–36.6; O2SAT 93–97
[2024-09-24] MEDS: LACTATED RINGERS 1000ML 1,000 ML 25 ML IV (08:57)
--- NOTE | 2024-09-24 09:13 | EXP.ANES.CKL ---
[facility] Disclaimer: The information contained in this section may have been updated after the patient was seen, as this information can be updated by other users. Social History Smoking Status: Unknown if ever smoked alcohol intake: never substance use type: denies use current occupational status: disabled Travel in the last 8 weeks: None household members: children housing: halfway [facility] Anesthesia Checklist Patient Identification Patient Identification: Arm Band, Family and Verbal (Name & ) Structural Data Admitted From: Home Planned Operative Procedure/s: EGD Consent for Planned Operative Procedure(s) Verified: Yes Verified Documents: Surgical Consent and History and Physical NPO Status Verified Time NPO: 20:00 Chart Verification Results Verified: CBC, BMP, ECG and Chest Xray Additional verifications Patient : No Anesthesia Reactions: No Cardiovascular Assessment Heart Sounds: S1 & S2 Pulse Rhythm: Irregular Peripheral Edema: No Airway Assessment Mallampati Score:: Class II C-Spine Mobility Assessed: Yes TMJ Mobility Assessed: Yes Dentition: Dentures-good fit Neurological Assessment Level of Consciousness: Awake, Alert, Follows Commands and Disoriented (+Dementia) Hx Seizures: No Numbness or tingling in extremities: No Anesthesia Plan Anesthesia Risk discussed: Yes Anesthesia Plan: Verified ASA Class: III Anesthesia Type: MAC
--- NOTE | 2024-09-24 09:31 | P.PCN_ITS ---
[facility] Procedure Note Date: 09/24/24 Time: 09:54 Procedure Note:: Upper Endoscopy Procedure Report: Esophagogastroduodenoscopy with cold biopsies and TTS balloon dilation Endoscopost: Ralph Noel II, MD Referring Physician: Satish Alvarado MD Date of Procedure: September 24, 2024 Equipment: Olympus GIF 190 standard upper endoscope Sedation: MAC sedation Indications: Mrs. Rivera is an 79-year-old female who is here for diagnostic upper endoscopy secondary to choking and dysphagia. She was in the emergency department on August 06, 2024. The ED report said that she had a choking episode while eating lunch. She had the Heimlich maneuver performed. The patient is a poor historian and comes in today with the wagon driver salesperson who does not have any information from the alf. It does not appear that any labs were performed at her recent ED visit. Previous labs from September 2022 did show new anemia and I do not know whether that was explored. Her labs from September 2022 showed an elevated CRP (26.9) and a slightly elevated alkaline phosphatase. Her imaging at the emergency department recently showed branching nodularities in the left lower lobe suspicious for aspiration pneumonitis and some circumferential thickening and distention of the distal esophagus (often seen in the context of esophageal dysmotility??). Her labs from 2022 showed an elevated alkaline phosphatase mildly. She has had prior cholecystectomy Procedure: Prior to the procedure, a history and physical exam was performed, and patient's medications and allergies were reviewed. The risks, benefits and alternatives of the sedation and procedure were discussed with the patient. All questions were answered and informed consent was obtained. The patient was brought to the procedure room. Patient identification and proposed procedure were verified by the physician and the nurse. The patient was placed in a left lateral decubitus position and the scope was passed under direct vision. Throughout the procedure, the patient's blood pressure, pulse, and oxygen saturations were monitored continuously. The upper GI endoscopy was accomplished without difficulty. The patient tolerated the procedure well. Findings: The scope was passed directly into the upper esophagus and advanced to the third portion of the duodenum. The post bulbar duodenum and duodenal bulb were normal with normal mucosa and conniventes. The scope was withdrawn through a normal duodenal bulb and pylorus into the stomach. There was mild linear reactive gastropathy of the antrum. Biopsies were obtained. The body and fundus of the stomach were normal. Upon retroflexion there was a 4 cm hiatal hernia. The diaphragmatic hiatus was at 32 cm from the incisors. The top of the gastric folds was at 28 cm from the incisors. The squamocolumnar junction circumferentially was at 19 cm from the incisors and there were a couple of proximal tongues that extended to 17 cm from the incisors. 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 Narrowband imaging was utilized for directed biopsies taken at 26 cm, 24 cm and 21 cm from the incisors. There was no evidence of reflux esophagitis or stricturing. The entire esophagus was dilated to 60 Slovenian/20 mm with a TTS hydrostatic balloon. There was mild resistance at the cricopharyngeus. Impression: 1. 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 4 cm hiatal hernia 3. Esophageal dysmotility with nonerosive GERD Plan: I did dilate the esophagus maximally. I would continue PPI therapy with pantoprazole. I will discuss findings with caregiver and follow-up the biopsies.
--- NOTE | 2024-09-24 10:32 | SUR.PHASEII ---
REPORT CALLED TO JOHNY @ [facility] AT THIS TIME.
== END 2024-09-24 10:32 | disposition home or self-care (01) ==
PROVIDERS: PCP Family Medicine; Visit Provider Internal Medicine Gastroenterology
PROC: 0DJ08ZZ Inspection of Upper Intestinal Tract, Via Natural or Artificial Opening Endoscopic (ICD-10-PCS; CPT 43239; principal; 2024-09-24 10:30)
DX: R13.10 Dysphagia, unspecified (principal); K22.4 Dyskinesia of esophagus; K21.9 Gastro-esophageal reflux disease without esophagitis; K44.9 Diaphragmatic hernia without obstruction or gangrene; K22.70 Barrett's esophagus without dysplasia
CPT/HCPCS: 43239; 43249; C1726; J7120